=== PATIENT | female | born 1945 | race Caucasian/White ===

== ENCOUNTER → 2016-08-25 | Outpatient (CLI) | payer OTHER ==
[~2016-08-25] MED LIST: 'TENORMIN50 MG PO; AMLODIPINE5 MG PO; ANTIVERT/2525 MG PO; CIPRO500 MG PO; CLINDAMYCIN HC300 MG PO; LEVAQUIN750 M1 PO; LEVAQUIN750 MG PO; LEVOFLOXACIN500 MG PO; LISINOPRIL40 MG PO; PRILOSEC20 MG PO; PYRIDIUM200 MG PO; VICODIN ES 7501 TAB PO; VITAMIN B121000 MC1 PO; ZYRTEC10 MG PO
== END | disposition home or self-care (01) ==
LOC: CT 15:00
DX: R91.1 Solitary pulmonary nodule (principal)

== ENCOUNTER 2016-11-12 18:13 | Emergency (ER) | payer OTHER ==
[~2016-11-12] VITALS: Ht 172.7 cm; Wt 90.7 kg
[~2016-11-12 18:13] MED LIST changes: -CLINDAMYCIN HC300 MG PO; -LEVAQUIN750 M1 PO; -VITAMIN B121000 MC1 PO
[2016-11-12] MEDS ORDERED: VITAMIN B121000 MC1 PO (18:26)
[2016-11-12] MEDS ORDERED: CLINDAMYCIN HC300 MG PO (18:53)
[2016-11-12] MEDS ORDERED: LEVAQUIN750 M1 PO (18:53)
[2016-11-12 19:02] VITALS: BP 148/78
== END 2016-11-12 19:42 | disposition home or self-care (01) ==
LOC: ED 18:13
DX: S91.351A Open bite, right foot, initial encounter (principal); Z88.0 Allergy status to penicillin; Z88.1 Allergy status to other antibiotic agents; Z88.2 Allergy status to sulfonamides; Z90.49 Acquired absence of other specified parts of digestive tract; W55.01XA Bitten by cat, initial encounter; Y93.89 Activity, other specified; Y92.9 Unspecified place or not applicable; Y99.9 Unspecified external cause status

== ENCOUNTER 2016-12-07 01:15 | Emergency (ER) | payer OTHER ==
[~2016-12-07] VITALS: Ht 172.7 cm; Wt 93.0 kg
[~2016-12-07 01:15] MED LIST changes: +CLINDAMYCIN HC300 MG PO; +LEVAQUIN750 M1 PO; +VITAMIN B121000 MC1 PO
[2016-12-07 01:24] VITALS: BP 179/84
[2016-12-07] MEDS ORDERED: CLINDAMYCIN HC300 MG PO (02:23)
== END 2016-12-07 03:17 | disposition home or self-care (01) ==
LOC: ED 01:15
DX: S91.352D Open bite, left foot, subsequent encounter (principal); Z88.0 Allergy status to penicillin; Z88.1 Allergy status to other antibiotic agents; Z88.2 Allergy status to sulfonamides; Z79.899 Other long term (current) drug therapy; W55.01XD Bitten by cat, subsequent encounter

== ENCOUNTER → 2017-02-03 | Outpatient (CLI) | payer OTHER | END | disposition home or self-care (01) | LOC: RESCLI 02:53 | DX: W55.01XD Bitten by cat, subsequent encounter (principal); I12.9 Hypertensive chronic kidney disease with stage 1 through stage 4 chronic kidney disease, or unspecified chronic kidney disease; N18.3 Chronic kidney disease, stage 3 (moderate); K21.9 Gastro-esophageal reflux disease without esophagitis; E78.5 Hyperlipidemia, unspecified; Z88.0 Allergy status to penicillin; Z88.2 Allergy status to sulfonamides; Z88.1 Allergy status to other antibiotic agents; X58.XXXD Exposure to other specified factors, subsequent encounter ==

== ENCOUNTER → 2017-02-09 | Outpatient (CLI) | payer OTHER | END | disposition home or self-care (01) | LOC: CARD 12:56 | DX: R60.9 Edema, unspecified (principal) ==

== ENCOUNTER 2017-03-15 19:44 | Emergency (ER) | payer OTHER ==
[~2017-03-15] VITALS: Ht 172.7 cm; Wt 93.0 kg
[~2017-03-15 19:44] MED LIST changes: +NORVASC10 MG PO; +VITAMIN D400 I1 PO
[2017-03-15 20:05] VITALS: BP 169/80
[2017-03-15 20:45] LABS: BILIRUBIN NEGATIVE (NEGATIVE); BLOOD 3+ (NEGATIVE); CLARITY CLOUDY (CLEAR); COLOR YELLOW (YELLOW); GLUCOSE NEGATIVE (NEGATIVE); KETONE NEGATIVE (NEGATIVE); LEUKO ESTERASE 3+ (NEGATIVE); NITRITE NEGATIVE (NEGATIVE); PH 5.5 (5.0-9.0); PROTEIN 2+ (NEGATIVE); UROBILINOGEN 0.2 E.U./dl (0.2-1.0)
[2017-03-15 20:51] LABS: BACTERIA 3+; EPITHELIAL CELLS 0-2; RBC TNTC rbc/hpf (0-2); WBC TNTC wbc/hpf (0-5)
[2017-03-15 20:52] LABS: URINE REFLEX COMMENT YES (NO)
[2017-03-15] MEDS ORDERED: AMINOPHYLLIN200 MG PO (20:57)
== END 2017-03-15 21:09 | disposition home or self-care (01) ==
LOC: ED 19:44
PROVIDERS: Nurse Practitioner Family
DX: N30.01 Acute cystitis with hematuria (principal); R50.9 Fever, unspecified; Z88.0 Allergy status to penicillin; Z88.1 Allergy status to other antibiotic agents; Z88.2 Allergy status to sulfonamides; Z88.8 Allergy status to other drugs, medicaments and biological substances; Z79.899 Other long term (current) drug therapy

== ENCOUNTER → 2017-03-23 | Outpatient (CLI) | payer OTHER ==
[~2017-03-23] MED LIST changes: +AMINOPHYLLIN200 MG PO
[2017-03-23 12:35] LABS: BASO % 0.4 % (0.0-1.0); EOS # 0.1 10*3/uL (0.0-0.4); EOS % 2.7 % (1.0-4.0); HEMATOCRIT 41.3 % (37.0-47.0); HEMOGLOBIN 13.8 g/dl (12.0-16.0); LYMPH # 1.6 10*3/uL (1.3-4.4); LYMPH % 30.4 % (27.0-41.0); MEAN CORPUSCULAR HGB 30.4 pg (27.0-31.0); MEAN CORPUSCULAR HGB CONC 33.4 g/dl (33.0-37.0); MONO # 0.3 10*3/uL (0.1-1.0); MONO % 6.6 % (3.0-9.0); NEUT % 59.3 % (47.0-73.0); PLATELET COUNT AUTOMATED 191 10*3/uL (130-400); RED BLOOD COUNT 4.54 10*6/uL (4.10-5.10); RED CELL DISTRI WIDTH 12.8 % (0-14.5); WHITE BLOOD COUNT 5.1 10*3/uL (4.8-10.8)
[2017-03-23 12:40] LABS: BILIRUBIN NEGATIVE (NEGATIVE); BLOOD NEGATIVE (NEGATIVE); CLARITY SL CLOUDY (CLEAR); COLOR YELLOW (YELLOW); GLUCOSE NEGATIVE (NEGATIVE); KETONE NEGATIVE (NEGATIVE); LEUKO ESTERASE NEGATIVE (NEGATIVE); NITRITE NEGATIVE (NEGATIVE); PH 5.5 (5.0-9.0); PROTEIN NEGATIVE (NEGATIVE); SPECIFIC GRAVITY 1.025 (1.005-1.030); UROBILINOGEN 0.2 E.U./dl (0.2-1.0)
[2017-03-23 12:58] LABS: BACTERIA TRACE; URINE REFLEX COMMENT NO (NO)
[2017-03-23 13:04] LABS: POTASSIUM 4.3 mmol/L (3.5-5.1)
== END | disposition home or self-care (01) ==
LOC: LAB 07:57 → RESCLI 07:57
PROVIDERS: Internal Medicine
DX: N18.3 Chronic kidney disease, stage 3 (moderate) (principal); N39.0 Urinary tract infection, site not specified; E53.8 Deficiency of other specified B group vitamins

== ENCOUNTER → 2017-04-06 | Outpatient (CLI) | payer OTHER | END | disposition home or self-care (01) | LOC: RESCLI 04-01 11:27 | DX: I12.9 Hypertensive chronic kidney disease with stage 1 through stage 4 chronic kidney disease, or unspecified chronic kidney disease (principal); N18.3 Chronic kidney disease, stage 3 (moderate); E55.9 Vitamin D deficiency, unspecified; K21.9 Gastro-esophageal reflux disease without esophagitis; E53.8 Deficiency of other specified B group vitamins; E78.2 Mixed hyperlipidemia; G62.9 Polyneuropathy, unspecified; R06.09 Other forms of dyspnea; Z91.19 Patient's noncompliance with other medical treatment and regimen ==

== ENCOUNTER 2017-04-25 18:27 | Emergency (ER) | payer OTHER ==
[~2017-04-25] VITALS: Ht 172.7 cm; Wt 93.0 kg
[2017-04-25 18:33] VITALS: BP 180/60
[2017-04-25 18:55] LABS: BASO % 0.2 % (0.0-1.0); EOS # 0.1 10*3/uL (0.0-0.4); EOS % 2.2 % (1.0-4.0); HEMATOCRIT 40.5 % (37.0-47.0); HEMOGLOBIN 13.7 g/dl (12.0-16.0); LYMPH # 1.6 10*3/uL (1.3-4.4); MEAN CELL VOLUME 90.2 fl (81.0-99.0); MEAN CORPUSCULAR HGB 30.5 pg (27.0-31.0); MEAN CORPUSCULAR HGB CONC 33.8 g/dl (33.0-37.0); MONO # 0.3 10*3/uL (0.1-1.0); MONO % 5.2 % (3.0-9.0); NEUT % 66.1 % (47.0-73.0); PLATELET COUNT AUTOMATED 177 10*3/uL (130-400); RED BLOOD COUNT 4.49 10*6/uL (4.10-5.10); RED CELL DISTRI WIDTH 12.9 % (0-14.5)
[2017-04-25 19:03] LABS: ACT PARTIAL THROMBO TIME 24.1 SECONDS (20.8-31.5)
[2017-04-25 19:12] LABS: BUN 11 mg/dl (7-24); CHLORIDE 108 mmol/L (98-107); CREATININE 1.47 mg/dL (0.55-1.02); POTASSIUM 3.7 mmol/L (3.5-5.1); SODIUM 142 mmol/L (136-145)
[2017-04-25 19:22] LABS: TROPONIN I < 0.015 ng/ml (<0.045)
== END 2017-04-25 21:25 | disposition home or self-care (01) ==
LOC: ED 18:27
PROVIDERS: Emergency Medicine
DX: R53.81 Other malaise (principal); R53.83 Other fatigue; R07.89 Other chest pain; R60.0 Localized edema; E55.9 Vitamin D deficiency, unspecified; E53.8 Deficiency of other specified B group vitamins; I12.9 Hypertensive chronic kidney disease with stage 1 through stage 4 chronic kidney disease, or unspecified chronic kidney disease; N18.3 Chronic kidney disease, stage 3 (moderate); Z88.0 Allergy status to penicillin; Z88.2 Allergy status to sulfonamides; Z88.1 Allergy status to other antibiotic agents; Z88.8 Allergy status to other drugs, medicaments and biological substances; Z79.899 Other long term (current) drug therapy

== ENCOUNTER → 2017-05-11 | Outpatient (CLI) | payer OTHER | END | disposition home or self-care (01) | LOC: RESCLI 02:03 | DX: I12.9 Hypertensive chronic kidney disease with stage 1 through stage 4 chronic kidney disease, or unspecified chronic kidney disease (principal); N18.3 Chronic kidney disease, stage 3 (moderate); K21.9 Gastro-esophageal reflux disease without esophagitis; E55.9 Vitamin D deficiency, unspecified ==

== ENCOUNTER → 2017-06-08 | Outpatient (CLI) | payer OTHER | END | disposition home or self-care (01) | LOC: RESCLI 02:56 | DX: Z12.31 Encounter for screening mammogram for malignant neoplasm of breast (principal); Z12.11 Encounter for screening for malignant neoplasm of colon; Z13.820 Encounter for screening for osteoporosis; E53.8 Deficiency of other specified B group vitamins; E55.9 Vitamin D deficiency, unspecified; I10 Essential (primary) hypertension; K21.9 Gastro-esophageal reflux disease without esophagitis; G62.9 Polyneuropathy, unspecified; R00.1 Bradycardia, unspecified; E66.9 Obesity, unspecified; Z90.49 Acquired absence of other specified parts of digestive tract ==

== ENCOUNTER → 2017-06-29 | Outpatient (CLI) | payer OTHER | END | disposition home or self-care (01) | LOC: MAMMO 01:17 | DX: Z12.31 Encounter for screening mammogram for malignant neoplasm of breast (principal) ==

== ENCOUNTER → 2017-07-06 | Outpatient (CLI) | payer OTHER ==
[~2017-07-06] MED LIST changes: +NEURONTIN100 MG PO; +OMEPRAZOLE40 MG PO; -PRILOSEC20 MG PO; +VITAMIN D35000 UNIT PO
== END | disposition home or self-care (01) ==
LOC: RESCLI 03:09
DX: E55.9 Vitamin D deficiency, unspecified (principal); I10 Essential (primary) hypertension; K21.9 Gastro-esophageal reflux disease without esophagitis; G62.9 Polyneuropathy, unspecified; I48.91 Unspecified atrial fibrillation; J44.9 Chronic obstructive pulmonary disease, unspecified

== ENCOUNTER 2017-07-09 02:07 | Inpatient (IN) | payer OTHER ==
[2017-07-09] VITALS (7 sets, daily range): BP systolic 135–186; BP diastolic 57–84
[~2017-07-09] VITALS: Ht 172.7 cm; Wt 98.0 kg
--- NOTE | ~2017-07-09 | PROC NOTE ---
[place], [place] PROCEDURE NOTE NAME: JAEL KISER [facility] #: [id number] UNIT #: [id number] ROOM: DOCTOR: LAN SCOTT MD BIRTHDATE: [birth year] DOS: 07/09/2017 PREOPERATIVE DIAGNOSIS: Screening examination. POSTOPERATIVE DIAGNOSIS: Sigmoid diverticulosis. PROCEDURE: Flexible sigmoidoscopy. ENDOSCOPIST: Lan Scott MD BROADCAST PRODUCER: LEON. ANESTHESIA: MAC. INDICATIONS: This is a 72-year-old lady who comes in today for a screening examination. She has never had a colonoscopy before. The procedure and its complications were explained to the patient in detail preoperatively. Complications that were discussed included but were not limited to bleeding, missed lesions and colon perforation. She agreed to proceed. DESCRIPTION OF PROCEDURE: After identifying the patient, the patient was brought to the endoscopy suite and placed in the left lateral position. After time-out procedure was called, IV sedation was administered and a digital rectal exam was performed. This was within normal limits. An adult colonoscope was now introduced into the anal canal and advanced sequentially into the rectum and the sigmoid colon. Upon reaching the sigmoid colon, there was found to be extensive diverticulosis. Approximately 25 cm from the anal verge, the scope could not be passed because of significant amount of resistance. There was also mild amount of bleeding that could be observed due to the trauma of the scope. At this point, because of the inability to proceed beyond the level of 25 cm in a safe fashion, the scope was withdrawn and the patient was brought back to the recovery room in stable fashion. As a precaution an upright chest x-ray was ordered in order to rule out any perforation. Based on these findings, the patient is recommended to have further workup, which may include barium enema or another colonoscopy in the future. I have discussed these findings with the patient's daughter in the recovery room. Lan Scott MD CM:PROCNOTE:PROCEDURE NOTE [id number] LAN SCOTT MD
[~2017-07-09 02:07] MED LIST changes: -NEURONTIN100 MG PO; -VITAMIN D35000 UNIT PO
[2017-07-09 10:56] LABS: BASO % 0.3 % (0.0-1.0); EOS # 0.1 10*3/uL (0.0-0.4); EOS % 2.2 % (1.0-4.0); HEMATOCRIT 39.6 % (37.0-47.0); HEMOGLOBIN 13.2 g/dl (12.0-16.0); LYMPH # 1.3 10*3/uL (1.3-4.4); LYMPH % 36.1 % (27.0-41.0); MEAN CORPUSCULAR HGB CONC 33.3 g/dl (33.0-37.0); MEAN PLATELET VOLUME 9.6 fl (9.6-12.3); MONO # 0.3 10*3/uL (0.1-1.0); MONO % 6.9 % (3.0-9.0); NEUT % 54.2 % (47.0-73.0); PLATELET COUNT AUTOMATED 170 10*3/uL (130-400); WHITE BLOOD COUNT 3.6 10*3/uL (4.8-10.8)
[2017-07-09 11:12] LABS: ALBUMIN 3.6 gm/dl (3.1-4.5); CREATININE 1.34 mg/dL (0.55-1.02); POTASSIUM 4.2 mmol/L (3.5-5.1); TOTAL PROTEIN 6.6 gm/dL (6.4-8.2)
[2017-07-09] MEDS ORDERED: VITAMIN D35000 UNIT PO (16:39)
[2017-07-09] MEDS ORDERED: NEURONTIN100 MG PO (16:39)
[2017-07-10] VITALS: BP 139/55
== END 2017-07-10 02:00 | disposition short-term general hospital (02) | DRG 392 ==
LOC: SDC 02:07 → 5E 10:51 → SDC 12:30 → 5E 07-10 02:00
PROVIDERS: ADMIT Surgery
PROC: 0DJD8ZZ Inspection of Lower Intestinal Tract, Via Natural or Artificial Opening Endoscopic (ICD-10-PCS; principal; 2017-07-09)
DX: K57.30 Diverticulosis of large intestine without perforation or abscess without bleeding (principal); N18.3 Chronic kidney disease, stage 3 (moderate); I12.9 Hypertensive chronic kidney disease with stage 1 through stage 4 chronic kidney disease, or unspecified chronic kidney disease; K91.61 Intraoperative hemorrhage and hematoma of a digestive system organ or structure complicating a digestive system procedure; Z87.440 Personal history of urinary (tract) infections; Z88.0 Allergy status to penicillin; Z88.2 Allergy status to sulfonamides; Z88.8 Allergy status to other drugs, medicaments and biological substances; Y92.234 Operating room of hospital as the place of occurrence of the external cause; Y83.8 Other surgical procedures as the cause of abnormal reaction of the patient, or of later complication, without mention of misadventure at the time of the procedure; Z79.899 Other long term (current) drug therapy

== ENCOUNTER → 2017-07-27 | Outpatient (CLI) | payer OTHER ==
[~2017-07-27] MED LIST changes: +NEURONTIN100 MG PO; +VITAMIN D35000 UNIT PO
[2017-07-27 15:38] LABS: BASO # 0.1 10*3/uL (0.0-0.1); EOS # 0.5 10*3/uL (0.0-0.4); EOS % 8.1 % (1.0-4.0); HEMOGLOBIN 13.6 g/dl (12.0-16.0); LYMPH # 1.6 10*3/uL (1.3-4.4); LYMPH % 26.2 % (27.0-41.0); MEAN CELL VOLUME 91.9 fl (81.0-99.0); MEAN CORPUSCULAR HGB 29.8 pg (27.0-31.0); MEAN CORPUSCULAR HGB CONC 32.4 g/dl (33.0-37.0); MEAN PLATELET VOLUME 9.1 fl (9.6-12.3); MONO # 0.5 10*3/uL (0.1-1.0); MONO % 8.1 % (3.0-9.0); NEUT # 3.4 10*3/uL (2.3-7.9); NEUT % 55.6 % (47.0-73.0); PLATELET COUNT AUTOMATED 411 10*3/uL (130-400); RED BLOOD COUNT 4.57 10*6/uL (4.10-5.10); RED CELL DISTRI WIDTH 13.6 % (0-14.5)
[2017-07-27 15:49] LABS: CREATININE 1.19 mg/dL (0.55-1.02); POTASSIUM 4.3 mmol/L (3.5-5.1)
== END ==
LOC: RESCLI 03:54
PROVIDERS: Internal Medicine
DX: Z00.01 Encounter for general adult medical examination with abnormal findings (principal); K63.1 Perforation of intestine (nontraumatic); Z88.8 Allergy status to other drugs, medicaments and biological substances; I10 Essential (primary) hypertension; K21.9 Gastro-esophageal reflux disease without esophagitis; E78.5 Hyperlipidemia, unspecified

== ENCOUNTER → 2017-08-24 | Outpatient (CLI) | payer OTHER ==
[2017-08-24 11:19] LABS: HEMATOCRIT 40.1 % (37.0-47.0); HEMOGLOBIN 13.2 g/dl (12.0-16.0); MEAN CELL VOLUME 90.9 fl (81.0-99.0); MEAN CORPUSCULAR HGB 29.9 pg (27.0-31.0); MEAN CORPUSCULAR HGB CONC 32.9 g/dl (33.0-37.0); MEAN PLATELET VOLUME 9.3 fl (9.6-12.3); RED BLOOD COUNT 4.41 10*6/uL (4.10-5.10); RED CELL DISTRI WIDTH 13.8 % (0-14.5); WHITE BLOOD COUNT 4.7 10*3/uL (4.8-10.8)
[2017-08-24 11:32] LABS: CREATININE 1.17 mg/dL (0.55-1.02); POTASSIUM 3.9 mmol/L (3.5-5.1)
[2017-08-24 13:16] LABS: VITAMIN D, 25-HYDROXY 64.3 ng/mL (30-100)
== END | disposition home or self-care (01) ==
LOC: LAB 03:34 → RESCLI 03:34
PROVIDERS: Internal Medicine
DX: N18.3 Chronic kidney disease, stage 3 (moderate) (principal); K63.1 Perforation of intestine (nontraumatic); E55.9 Vitamin D deficiency, unspecified

== ENCOUNTER → 2017-09-02 | Outpatient (CLI) | payer OTHER ==
[2017-09-02 11:18] LABS: BASO % 0.2 % (0.0-1.0); EOS # 0.1 10*3/uL (0.0-0.4); EOS % 2.7 % (1.0-4.0); HEMATOCRIT 38.9 % (37.0-47.0); HEMOGLOBIN 12.9 g/dl (12.0-16.0); LYMPH # 1.5 10*3/uL (1.3-4.4); LYMPH % 37.2 % (27.0-41.0); MEAN CELL VOLUME 90.5 fl (81.0-99.0); MEAN CORPUSCULAR HGB CONC 33.2 g/dl (33.0-37.0); MEAN PLATELET VOLUME 9.1 fl (9.6-12.3); MONO # 0.4 10*3/uL (0.1-1.0); MONO % 8.7 % (3.0-9.0); NEUT # 2.1 10*3/uL (2.3-7.9); PLATELET COUNT AUTOMATED 230 10*3/uL (130-400); RED CELL DISTRI WIDTH 13.8 % (0-14.5)
[2017-09-02 11:25] LABS: BILIRUBIN 1+ (NEGATIVE); BLOOD NEGATIVE (NEGATIVE); CLARITY CLEAR (CLEAR); COLOR YELLOW (YELLOW); GLUCOSE NEGATIVE (NEGATIVE); KETONE TRACE (NEGATIVE); LEUKO ESTERASE NEGATIVE (NEGATIVE); NITRITE NEGATIVE (NEGATIVE); UROBILINOGEN 0.2 E.U./dl (0.2-1.0)
[2017-09-02 11:46] LABS: ALBUMIN 3.6 gm/dl (3.1-4.5); POTASSIUM 3.7 mmol/L (3.5-5.1)
[2017-09-02 11:47] LABS: CREATININE 1.14 mg/dL (0.55-1.02); PHOSPHOROUS 2.9 mg/dL (2.5-4.9)
[2017-09-02 12:26] LABS: PTH INTACT 49.3 pg/mL (14.0-72.0); VITAMIN D, 25-HYDROXY 58.9 ng/mL (30-100)
== END ==
LOC: LAB 10:51
PROVIDERS: Internal Medicine Nephrology
DX: N18.3 Chronic kidney disease, stage 3 (moderate) (principal); E55.9 Vitamin D deficiency, unspecified; N25.81 Secondary hyperparathyroidism of renal origin

== ENCOUNTER → 2017-10-06 | Outpatient (CLI) | payer OTHER | END | disposition home or self-care (01) | LOC: RESCLI 00:48 | DX: I12.9 Hypertensive chronic kidney disease with stage 1 through stage 4 chronic kidney disease, or unspecified chronic kidney disease (principal); E78.2 Mixed hyperlipidemia; N18.3 Chronic kidney disease, stage 3 (moderate); E55.9 Vitamin D deficiency, unspecified; E53.8 Deficiency of other specified B group vitamins; G62.9 Polyneuropathy, unspecified; E66.9 Obesity, unspecified; K63.1 Perforation of intestine (nontraumatic); K21.9 Gastro-esophageal reflux disease without esophagitis ==

== ENCOUNTER → 2017-10-11 | Outpatient (CLI) | payer OTHER | END | disposition home or self-care (01) | LOC: CT 01:13 | DX: K57.30 Diverticulosis of large intestine without perforation or abscess without bleeding (principal); R91.1 Solitary pulmonary nodule; Z90.49 Acquired absence of other specified parts of digestive tract ==

== ENCOUNTER → 2017-10-21 | Outpatient (CLI) | payer OTHER | END | disposition home or self-care (01) | LOC: D 14:38 | DX: K52.9 Noninfective gastroenteritis and colitis, unspecified (principal) ==

== ENCOUNTER → 2017-10-25 | Outpatient (CLI) | payer OTHER | END | disposition home or self-care (01) | LOC: RESCLI 02:12 | DX: I12.9 Hypertensive chronic kidney disease with stage 1 through stage 4 chronic kidney disease, or unspecified chronic kidney disease (principal); N18.3 Chronic kidney disease, stage 3 (moderate); E78.2 Mixed hyperlipidemia; E55.9 Vitamin D deficiency, unspecified; R91.1 Solitary pulmonary nodule; E53.8 Deficiency of other specified B group vitamins; G62.9 Polyneuropathy, unspecified; E66.9 Obesity, unspecified; K21.9 Gastro-esophageal reflux disease without esophagitis ==

== ENCOUNTER → 2017-11-23 | Outpatient (CLI) | payer OTHER ==
[2017-11-23 15:34] LABS: CREATININE 1.29 mg/dL (0.55-1.02); POTASSIUM 4.3 mmol/L (3.5-5.1)
[2017-11-23 15:40] LABS: THYROID STIM HORMONE (HS) 0.523 uIU/ml (0.358-4.75)
== END | disposition home or self-care (01) ==
LOC: RESCLI 00:26
PROVIDERS: Internal Medicine
DX: I12.9 Hypertensive chronic kidney disease with stage 1 through stage 4 chronic kidney disease, or unspecified chronic kidney disease (principal); N18.3 Chronic kidney disease, stage 3 (moderate); E53.8 Deficiency of other specified B group vitamins; E66.9 Obesity, unspecified; E55.9 Vitamin D deficiency, unspecified; Z88.0 Allergy status to penicillin

== ENCOUNTER → 2018-01-11 | Outpatient (CLI) | payer OTHER | END | disposition home or self-care (01) | LOC: RESCLI 01:39 | DX: H92.01 Otalgia, right ear (principal); I10 Essential (primary) hypertension; K21.9 Gastro-esophageal reflux disease without esophagitis; E78.5 Hyperlipidemia, unspecified; Z88.0 Allergy status to penicillin; Z88.8 Allergy status to other drugs, medicaments and biological substances; Z79.899 Other long term (current) drug therapy ==

== ENCOUNTER → 2018-02-22 | Outpatient (CLI) | payer OTHER | END | disposition home or self-care (01) | LOC: RESCLI 03:17 | DX: I12.9 Hypertensive chronic kidney disease with stage 1 through stage 4 chronic kidney disease, or unspecified chronic kidney disease (principal); N18.3 Chronic kidney disease, stage 3 (moderate); E55.9 Vitamin D deficiency, unspecified; K21.9 Gastro-esophageal reflux disease without esophagitis; E53.8 Deficiency of other specified B group vitamins; G60.9 Hereditary and idiopathic neuropathy, unspecified; R00.1 Bradycardia, unspecified; Z79.899 Other long term (current) drug therapy; Z88.0 Allergy status to penicillin; Z88.8 Allergy status to other drugs, medicaments and biological substances ==

== ENCOUNTER → 2018-05-18 | Outpatient (CLI) | payer OTHER ==
[~2018-05-18] MED LIST changes: +CEFDINIR300 MG PO; +FLAGYL500 MG PO; +MERREM IV1 GM IV
[2018-05-18 11:45] LABS: BASO % 0.4 % (0.0-1.0); EOS # 0.2 10*3/uL (0.0-0.4); EOS % 3.4 % (1.0-4.0); HEMATOCRIT 41.2 % (37.0-47.0); HEMOGLOBIN 13.4 g/dl (12.0-16.0); LYMPH # 1.6 10*3/uL (1.3-4.4); LYMPH % 30.9 % (27.0-41.0); MEAN CELL VOLUME 91.6 fl (81.0-99.0); MEAN CORPUSCULAR HGB 29.8 pg (27.0-31.0); MEAN CORPUSCULAR HGB CONC 32.5 g/dl (33.0-37.0); MONO # 0.3 10*3/uL (0.1-1.0); MONO % 6.4 % (3.0-9.0); NEUT # 3.1 10*3/uL (2.3-7.9); NEUT % 58.5 % (47.0-73.0); PLATELET COUNT AUTOMATED 204 10*3/uL (130-400); RED CELL DISTRI WIDTH 13.2 % (0-14.5); WHITE BLOOD COUNT 5.3 10*3/uL (4.8-10.8)
[2018-05-18 12:16] LABS: ALBUMIN 3.8 gm/dl (3.1-4.5); CREATININE 1.29 mg/dL (0.55-1.02); POTASSIUM 4.6 mmol/L (3.5-5.1); TOTAL PROTEIN 7.5 gm/dL (6.4-8.2)
[2018-05-18 13:54] LABS: VITAMIN D, 25-HYDROXY 71.2 ng/mL (30-100)
== END | disposition home or self-care (01) ==
LOC: LAB 11:21
PROVIDERS: Internal Medicine
DX: N18.3 Chronic kidney disease, stage 3 (moderate) (principal); Z79.899 Other long term (current) drug therapy

== ENCOUNTER → 2018-06-07 | Outpatient (CLI) | payer OTHER ==
[2018-06-07 11:48] LABS: BILIRUBIN NEGATIVE (NEGATIVE); BLOOD NEGATIVE (NEGATIVE); CLARITY SL CLOUDY (CLEAR); COLOR YELLOW (YELLOW); GLUCOSE NEGATIVE (NEGATIVE); KETONE NEGATIVE (NEGATIVE)
[2018-06-07 11:49] LABS: BACTERIA 1+; EPITHELIAL CELLS 15-20; LEUKO ESTERASE TRACE (NEGATIVE); NITRITE NEGATIVE (NEGATIVE); UROBILINOGEN 0.2 E.U./dl (0.2-1.0)
== END | disposition home or self-care (01) ==
LOC: RESCLI 00:52
PROVIDERS: Student in an Organized Health Care Education/Training Program
DX: I12.9 Hypertensive chronic kidney disease with stage 1 through stage 4 chronic kidney disease, or unspecified chronic kidney disease (principal); N18.3 Chronic kidney disease, stage 3 (moderate); R30.0 Dysuria; E55.9 Vitamin D deficiency, unspecified; K21.9 Gastro-esophageal reflux disease without esophagitis; E53.8 Deficiency of other specified B group vitamins; G60.9 Hereditary and idiopathic neuropathy, unspecified; R00.1 Bradycardia, unspecified; Z79.899 Other long term (current) drug therapy

== ENCOUNTER 2018-07-16 16:39 | Inpatient (IN) | payer OTHER ==
[~2018-07-16] VITALS: Ht 170.2 cm; Wt 86.8 kg
[~2018-07-16 16:39] MED LIST changes: -CEFDINIR300 MG PO; -FLAGYL500 MG PO; -MERREM IV1 GM IV
[2018-07-16 16:40] VITALS: BP 151/64
[2018-07-16 17:11] LABS: BASO % 0.1 % (0.0-1.0); EOS # 0.1 10*3/uL (0.0-0.4); EOS % 1.2 % (1.0-4.0); HEMATOCRIT 39.1 % (37.0-47.0); HEMOGLOBIN 12.9 g/dl (12.0-16.0); LYMPH % 25.3 % (27.0-41.0); MEAN CELL VOLUME 89.9 fl (81.0-99.0); MEAN CORPUSCULAR HGB 29.7 pg (27.0-31.0); MEAN PLATELET VOLUME 9.7 fl (9.6-12.3); MONO # 0.6 10*3/uL (0.1-1.0); MONO % 7.4 % (3.0-9.0); NEUT # 5.1 10*3/uL (2.3-7.9); NEUT % 65.7 % (47.0-73.0); PLATELET COUNT AUTOMATED 253 10*3/uL (130-400); RED BLOOD COUNT 4.35 10*6/uL (4.10-5.10); RED CELL DISTRI WIDTH 13.2 % (0-14.5); WHITE BLOOD COUNT 7.7 10*3/uL (4.8-10.8)
[2018-07-16 17:20] LABS: BILIRUBIN NEGATIVE (NEGATIVE); BLOOD NEGATIVE (NEGATIVE); CLARITY SL CLOUDY (CLEAR); COLOR YELLOW (YELLOW); GLUCOSE NEGATIVE (NEGATIVE); KETONE NEGATIVE (NEGATIVE); LEUKO ESTERASE 1+ (NEGATIVE); NITRITE NEGATIVE (NEGATIVE); SPECIFIC GRAVITY 1.015 (1.005-1.030); UROBILINOGEN 0.2 E.U./dl (0.2-1.0)
[2018-07-16 17:20] LABS: ACT PARTIAL THROMBO TIME 24.3 SECONDS (20.8-31.5); INTERNATIONAL NORM RATIO 0.9 (2.0-3.5)
[2018-07-16 17:29] LABS: ALBUMIN 3.5 gm/dl (3.1-4.5); CREATININE 1.16 mg/dL (0.55-1.02); POTASSIUM 3.8 mmol/L (3.5-5.1); TOTAL PROTEIN 7.9 gm/dL (6.4-8.2)
[2018-07-16 17:42] LABS: WBC 16-20 wbc/hpf (0-5)
[2018-07-16 17:43] LABS: MUCOUS TRACE
[2018-07-16 18:26] VITALS: BP 170/90
[2018-07-16 19:20] VITALS: BP 166/78
[2018-07-17] VITALS: BP 125/49
[2018-07-17 06:23] LABS: BASO % 0.2 % (0.0-1.0); EOS # 0.1 10*3/uL (0.0-0.4); EOS % 2.2 % (1.0-4.0); HEMATOCRIT 34.8 % (37.0-47.0); HEMOGLOBIN 11.2 g/dl (12.0-16.0); LYMPH # 1.5 10*3/uL (1.3-4.4); LYMPH % 26.9 % (27.0-41.0); MEAN CELL VOLUME 90.4 fl (81.0-99.0); MEAN CORPUSCULAR HGB 29.1 pg (27.0-31.0); MEAN CORPUSCULAR HGB CONC 32.2 g/dl (33.0-37.0); MEAN PLATELET VOLUME 10.1 fl (9.6-12.3); MONO # 0.4 10*3/uL (0.1-1.0); MONO % 7.8 % (3.0-9.0); NEUT # 3.4 10*3/uL (2.3-7.9); NEUT % 62.7 % (47.0-73.0); PLATELET COUNT AUTOMATED 202 10*3/uL (130-400); RED BLOOD COUNT 3.85 10*6/uL (4.10-5.10); WHITE BLOOD COUNT 5.4 10*3/uL (4.8-10.8)
[2018-07-17 06:53] LABS: BUN 12 mg/dl (7-24); CHLORIDE 105 mmol/L (98-107); CREATININE 1.04 mg/dL (0.55-1.02); PHOSPHOROUS 3.5 mg/dL (2.5-4.9); POTASSIUM 3.8 mmol/L (3.5-5.1); SODIUM 140 mmol/L (136-145)
[2018-07-17 08:00] VITALS: BP 149/51
[2018-07-17 09:50] LABS: VITAMIN D, 25-HYDROXY 78.5 ng/mL (30-100)
[2018-07-17 12:00] VITALS: BP 148/58
[2018-07-17 16:00] VITALS: BP 132/61
[2018-07-17 20:00] VITALS: BP 132/53
[2018-07-18] VITALS: BP 136/55
[2018-07-18 06:49] LABS: BASO % 0.2 % (0.0-1.0); EOS # 0.1 10*3/uL (0.0-0.4); EOS % 3.4 % (1.0-4.0); HEMATOCRIT 36.3 % (37.0-47.0); HEMOGLOBIN 11.9 g/dl (12.0-16.0); LYMPH # 1.5 10*3/uL (1.3-4.4); LYMPH % 36.6 % (27.0-41.0); MEAN CELL VOLUME 89.6 fl (81.0-99.0); MEAN CORPUSCULAR HGB 29.4 pg (27.0-31.0); MEAN CORPUSCULAR HGB CONC 32.8 g/dl (33.0-37.0); MEAN PLATELET VOLUME 9.8 fl (9.6-12.3); MONO # 0.3 10*3/uL (0.1-1.0); NEUT # 2.1 10*3/uL (2.3-7.9); NEUT % 51.6 % (47.0-73.0); PLATELET COUNT AUTOMATED 226 10*3/uL (130-400); RED BLOOD COUNT 4.05 10*6/uL (4.10-5.10); RED CELL DISTRI WIDTH 12.8 % (0-14.5); WHITE BLOOD COUNT 4.1 10*3/uL (4.8-10.8)
[2018-07-18 07:24] LABS: BUN 12 mg/dl (7-24); CHLORIDE 107 mmol/L (98-107); CREATININE 0.98 mg/dL (0.55-1.02); SODIUM 143 mmol/L (136-145)
[2018-07-18 07:55] VITALS: BP 128/88
[2018-07-18 12:30] VITALS: BP 151/56
[2018-07-18 16:00] VITALS: BP 140/59
[2018-07-18 20:00] VITALS: BP 155/73
[2018-07-19] VITALS (9 sets, daily range): BP systolic 108–150; BP diastolic 46–83
[2018-07-20] VITALS: BP 113/51
[2018-07-20 06:34] LABS: BASO % 0.2 % (0.0-1.0); EOS # 0.2 10*3/uL (0.0-0.4); EOS % 3.5 % (1.0-4.0); HEMATOCRIT 36.5 % (37.0-47.0); HEMOGLOBIN 11.8 g/dl (12.0-16.0); LYMPH # 1.6 10*3/uL (1.3-4.4); LYMPH % 27.4 % (27.0-41.0); MEAN CELL VOLUME 89.9 fl (81.0-99.0); MEAN CORPUSCULAR HGB 29.1 pg (27.0-31.0); MEAN CORPUSCULAR HGB CONC 32.3 g/dl (33.0-37.0); MEAN PLATELET VOLUME 9.4 fl (9.6-12.3); MONO # 0.5 10*3/uL (0.1-1.0); MONO % 7.6 % (3.0-9.0); NEUT # 3.6 10*3/uL (2.3-7.9); NEUT % 60.8 % (47.0-73.0); PLATELET COUNT AUTOMATED 261 10*3/uL (130-400); RED BLOOD COUNT 4.06 10*6/uL (4.10-5.10); RED CELL DISTRI WIDTH 13.1 % (0-14.5); WHITE BLOOD COUNT 5.9 10*3/uL (4.8-10.8)
[2018-07-20 06:52] LABS: BUN 15 mg/dl (7-24); CHLORIDE 105 mmol/L (98-107); CREATININE 0.96 mg/dL (0.55-1.02); POTASSIUM 3.9 mmol/L (3.5-5.1); SODIUM 139 mmol/L (136-145)
[2018-07-20 08:00] VITALS: BP 113/49
[2018-07-20 12:00] VITALS: BP 121/65
[2018-07-20 16:00] VITALS: BP 118/52
[2018-07-20 20:00] VITALS: BP 119/52
[2018-07-21] VITALS: BP 140/63
[2018-07-21 07:06] LABS: ALKALINE PHOSPHATASE 72 U/L (45-117); BUN 14 mg/dl (7-24); CHLORIDE 104 mmol/L (98-107); POTASSIUM 3.8 mmol/L (3.5-5.1); SGOT/AST 11 IU/L (3-35); SGPT/ALT 14 U/L (12-78); SODIUM 141 mmol/L (136-145); TOTAL PROTEIN 6.6 gm/dL (6.4-8.2)
[2018-07-21 08:00] VITALS: BP 114/46
[2018-07-21 12:00] VITALS: BP 145/58
[2018-07-21] MEDS ORDERED: CEFDINIR300 MG PO (12:05)
[2018-07-21] MEDS ORDERED: FLAGYL500 MG PO (12:05)
== END 2018-07-21 14:50 | disposition home or self-care (01) | DRG 356 ==
LOC: ED 16:39 → 4E 18:35 → EDHOLD 18:35 → 4E 18:46
PROVIDERS: Emergency Medicine; Internal Medicine; Student in an Organized Health Care Education/Training Program
PROC: 0W9F0ZZ Drainage of Abdominal Wall, Open Approach (ICD-10-PCS; principal; 2018-07-19)
DX: K56.600 Partial intestinal obstruction, unspecified as to cause (principal); K65.1 Peritoneal abscess; N32.2 Vesical fistula, not elsewhere classified; Z68.30 Body mass index [BMI] 30.0-30.9, adult; N18.3 Chronic kidney disease, stage 3 (moderate); I12.9 Hypertensive chronic kidney disease with stage 1 through stage 4 chronic kidney disease, or unspecified chronic kidney disease; E55.9 Vitamin D deficiency, unspecified; E53.8 Deficiency of other specified B group vitamins; E78.2 Mixed hyperlipidemia; R73.9 Hyperglycemia, unspecified; K21.9 Gastro-esophageal reflux disease without esophagitis; K38.9 Disease of appendix, unspecified; K57.30 Diverticulosis of large intestine without perforation or abscess without bleeding; E66.09 Other obesity due to excess calories; G62.9 Polyneuropathy, unspecified; Z90.49 Acquired absence of other specified parts of digestive tract; Z98.51 Tubal ligation status; Z88.0 Allergy status to penicillin; Z88.1 Allergy status to other antibiotic agents; Z88.2 Allergy status to sulfonamides; Z88.8 Allergy status to other drugs, medicaments and biological substances; Z87.440 Personal history of urinary (tract) infections; Z87.81 Personal history of (healed) traumatic fracture; Z87.891 Personal history of nicotine dependence; Z82.49 Family history of ischemic heart disease and other diseases of the circulatory system; Z83.3 Family history of diabetes mellitus; Z79.899 Other long term (current) drug therapy; Q64.4 Malformation of urachus

== ENCOUNTER → 2018-07-26 | Outpatient (CLI) | payer OTHER ==
[~2018-07-26] MED LIST changes: +CEFDINIR300 MG PO; +FLAGYL500 MG PO; +MERREM IV1 GM IV
== END | disposition home or self-care (01) ==
LOC: WOUNDCARE 04:28
DX: S31.609D Unspecified open wound of abdominal wall, unspecified quadrant with penetration into peritoneal cavity, subsequent encounter (principal); K91.71 Accidental puncture and laceration of a digestive system organ or structure during a digestive system procedure; I12.9 Hypertensive chronic kidney disease with stage 1 through stage 4 chronic kidney disease, or unspecified chronic kidney disease; N18.9 Chronic kidney disease, unspecified; E55.9 Vitamin D deficiency, unspecified; E78.5 Hyperlipidemia, unspecified; E53.8 Deficiency of other specified B group vitamins; K21.9 Gastro-esophageal reflux disease without esophagitis; G62.9 Polyneuropathy, unspecified; E66.9 Obesity, unspecified; Z68.29 Body mass index [BMI] 29.0-29.9, adult; Z87.891 Personal history of nicotine dependence; Z90.49 Acquired absence of other specified parts of digestive tract; Z87.19 Personal history of other diseases of the digestive system; X58.XXXD Exposure to other specified factors, subsequent encounter

== ENCOUNTER 2018-07-27 22:17 | Inpatient (IN) | payer OTHER ==
[~2018-07-27] VITALS: Ht 172.7 cm; Wt 86.7 kg
--- NOTE | ~2018-07-27 | CON ---
[place], [place] REPORT OF CONSULTATION [id number] UN[facility] #: [id number] ROOM: 528 DOCTOR: LAURA BRICE MD BIRTHDATE: [birth year] DOS: 07/28/2018 REASON FOR CONSULTATION: Abdominal pain, sepsis. CHIEF COMPLAINT: Generalized weakness, abdominal pain, fever. HISTORY OF PRESENTING ILLNESS: This is a 73-year-old female recently seen by me because of her abdominal pain, nausea, vomiting secondary to her intra-abdominal abscess, status post I and D. The patient has a history of perforated colon that led to intra-abdominal abscess, which was managed conservatively and then almost an year later, she presented with similar complaints and at this time, I and D was performed by Dr. Lakhani and the patient was initially kept on IV antibiotics and she recovered very quickly, remained stable and was discharged on p.o. cefdinir plus metronidazole. The patient refused to take ciprofloxacin because she read that it causes a lot of side effects. The patient did take the antibiotics for a week; however, a day prior to the presentation, she was feeling overall weak and tired with abdominal pain, fever, chills and got readmitted. On admission, her T-max was 101, slightly tachycardic. Her WBC count was 11.5. Lactic acid was normal. Liver enzymes were normal. C-reactive protein was 2.98. CT abdomen and pelvis done this time shows abdominal wall gas, status post I and D, but no other fluid collection concerning for abscess or drainable abscess. At this time, the patient has been started on vancomycin and meropenem. She is clinically okay and still feels tired. PAST MEDICAL HISTORY: Significant for intra-abdominal abscess, chronic kidney disease, colonic perforation, GERD, hypertension, hyperlipidemia. PAST SURGICAL HISTORY: Cholecystectomy, left knee surgery, tubal ligation, I and D. SOCIAL HISTORY: Former smoker, nonalcoholic. No illicit drug use. FAMILY HISTORY: Noncontributory at this time. ALLERGIES: To PENICILLIN, SULFA DRUGS, PYRIDIUM, TETRACYCLINE. REVIEW OF SYSTEMS: A 12-point review of systems has been done. Pertinent negative and positive has been included in HPI, rest are noncontributory. PHYSICAL EXAMINATION: VITAL SIGNS: Temperature 97.4, pulse rate 65, respiratory rate 20, oxygen saturation 99% on room air. GENERAL: The patient is alert, oriented x 3, in mild distress. HEENT: Atraumatic, normocephalic. PERRLA, EOMI. RESPIRATORY: Air entry bilaterally equal. No wheeze or crackles. CARDIOVASCULAR: S1, S2 normal. No murmur, rubs or gallops. ABDOMEN: Soft, nontender, nondistended. Bowel sounds present in 4 quadrants. Incision site over the lower abdomen has minimal serous fluid drainage, minimal redness, no tenderness. No foul smell. EXTREMITIES: No pedal edema. [place], [place] REPORT OF CONSULTATION NAME: JAEL KISER UNIT #: [id number] ROOM: 528 DOCTOR: LAURA BRICE MD BIRTHDATE: [birth year] NEUROLOGIC: Cranial nerves 2-12 grossly intact. LABORATORY DATA AND IMAGING: Reviewed, mentioned in HPI. ASSESSMENT: 1. Intraabdominal abscess, status post I and D done a week ago. 2. Colonic perforation in the past. 3. Sepsis from above. PLAN: At this time, the patient is hemodynamically stable, although she did present with features of sepsis and symptomatic and partly the reason could be. She is not tolerating the oral antibiotics well. Her incision site looks good and the wound is healing as well. CT abdomen is not remarkable. At this time, I spoke with the patient and discussed that may be giving her IV antibiotics for 2 weeks would be helpful. I would suggest to get a midline and give her cefepime plus metronidazole for 2 weeks, can discontinue vancomycin and metronidazole. She has been reported PENICILLIN allergy, but she tolerated the cephalosporins in the past. Thank you for your consult. Please call for any questions. Laura Brice MD CM:CONSTR:REPORT OF CONSULTATION 4 07/28/18 1505 interface
--- NOTE | ~2018-07-27 | EKG ---
[place], [place] ELECTROCARDIOGRAM REPORT NAME: JAEL KISER UNIT #: [id number] ROOM: DOCTOR: EPIPHANY DRAFT REPORT BIRTHDATE: [birth year] [facility] Test Date: 2018-07-27 Test Time: 23:10:30 Pat Name: JAEL KISER Department: Room: Gender: F Pomology Teacher: : 1945 Requested By: MED STEVENSON PA-C Order Number: [id number] Reading MD: Measurements Intervals [place] Rate: 74 P: 54 CA: 156 QRS: 21 QRSD: 92 T: 28 QT: 388 QTc: 431 Interpretive Statements Sinus rhythm No previous ECG available for comparison CM:EKGRPT:ELECTROCARDIOGRAM REPORT 09 12 MED STEVENSON PA-C EPIPHANY DRAFT REPORT MED STEVENSON PA-C
[~2018-07-27 22:17] MED LIST changes: -MERREM IV1 GM IV
[2018-07-27 22:20] VITALS: BP 150/70
[2018-07-27 23:29] LABS: BASO % 0.1 % (0.0-1.0); EOS # 0.1 10*3/uL (0.0-0.4); EOS % 0.4 % (1.0-4.0); HEMATOCRIT 38.9 % (37.0-47.0); HEMOGLOBIN 12.8 g/dl (12.0-16.0); LYMPH # 0.9 10*3/uL (1.3-4.4); LYMPH % 7.9 % (27.0-41.0); MEAN CORPUSCULAR HGB 29.3 pg (27.0-31.0); MEAN CORPUSCULAR HGB CONC 32.9 g/dl (33.0-37.0); MEAN PLATELET VOLUME 9.9 fl (9.6-12.3); MONO # 0.8 10*3/uL (0.1-1.0); MONO % 6.7 % (3.0-9.0); NEUT # 9.7 10*3/uL (2.3-7.9); NEUT % 84.6 % (47.0-73.0); PLATELET COUNT AUTOMATED 219 10*3/uL (130-400); RED BLOOD COUNT 4.37 10*6/uL (4.10-5.10); RED CELL DISTRI WIDTH 13.2 % (0-14.5); WHITE BLOOD COUNT 11.5 10*3/uL (4.8-10.8)
[2018-07-27 23:39] LABS: ACT PARTIAL THROMBO TIME 24.7 SECONDS (20.8-31.5); INTERNATIONAL NORM RATIO 1.1 (2.0-3.5)
[2018-07-27 23:45] LABS: ALBUMIN 3.2 gm/dl (3.1-4.5); ALKALINE PHOSPHATASE 71 U/L (45-117); BUN 12 mg/dl (7-24); CHLORIDE 104 mmol/L (98-107); CREATININE 1.27 mg/dL (0.55-1.02); LIPASE 105 U/L (73-393); POTASSIUM 3.7 mmol/L (3.5-5.1); SGOT/AST 16 IU/L (3-35); SGPT/ALT 16 U/L (12-78); SODIUM 139 mmol/L (136-145); TOTAL PROTEIN 7.1 gm/dL (6.4-8.2)
[2018-07-27 23:46] LABS: TROPONIN I < 0.015 ng/ml (<0.045)
[2018-07-28 00:27] VITALS: BP 110/43
[2018-07-28 02:10] VITALS: BP 100/58
[2018-07-28 06:21] LABS: EOS % 0.1 % (1.0-4.0); HEMATOCRIT 36.1 % (37.0-47.0); HEMOGLOBIN 11.5 g/dl (12.0-16.0); LYMPH # 1.3 10*3/uL (1.3-4.4); LYMPH % 16.7 % (27.0-41.0); MEAN CELL VOLUME 91.4 fl (81.0-99.0); MEAN CORPUSCULAR HGB 29.1 pg (27.0-31.0); MEAN CORPUSCULAR HGB CONC 31.9 g/dl (33.0-37.0); MEAN PLATELET VOLUME 9.9 fl (9.6-12.3); MONO # 0.5 10*3/uL (0.1-1.0); MONO % 6.1 % (3.0-9.0); NEUT # 5.9 10*3/uL (2.3-7.9); NEUT % 76.7 % (47.0-73.0); PLATELET COUNT AUTOMATED 201 10*3/uL (130-400); RED BLOOD COUNT 3.95 10*6/uL (4.10-5.10); RED CELL DISTRI WIDTH 13.2 % (0-14.5); WHITE BLOOD COUNT 7.7 10*3/uL (4.8-10.8)
[2018-07-28 06:36] LABS: ALBUMIN 2.9 gm/dl (3.1-4.5); ALKALINE PHOSPHATASE 59 U/L (45-117); BUN 10 mg/dl (7-24); CHLORIDE 110 mmol/L (98-107); CREATININE 1.07 mg/dL (0.55-1.02); PHOSPHOROUS 3.2 mg/dL (2.5-4.9); POTASSIUM 3.7 mmol/L (3.5-5.1); SGOT/AST 10 IU/L (3-35); SGPT/ALT 14 U/L (12-78); SODIUM 144 mmol/L (136-145); TOTAL PROTEIN 6.4 gm/dL (6.4-8.2)
[2018-07-28 08:00] VITALS: BP 128/64
[2018-07-28 08:14] LABS: BILIRUBIN NEGATIVE (NEGATIVE); BLOOD TRACE-LYSED (NEGATIVE); CLARITY SL CLOUDY (CLEAR); COLOR YELLOW (YELLOW); GLUCOSE NEGATIVE (NEGATIVE); KETONE NEGATIVE (NEGATIVE); LEUKO ESTERASE NEGATIVE (NEGATIVE); NITRITE NEGATIVE (NEGATIVE); PH 5.5 (5.0-9.0); UROBILINOGEN 0.2 E.U./dl (0.2-1.0)
[2018-07-28 08:27] LABS: BACTERIA TRACE; MUCOUS 2+; WBC 0-2 wbc/hpf (0-5)
[2018-07-28 12:00] VITALS: BP 123/38
[2018-07-28 16:00] VITALS: BP 121/45
[2018-07-28 20:00] VITALS: BP 125/54
[2018-07-29] VITALS: BP 123/45
[2018-07-29 06:11] LABS: BASO % 0.3 % (0.0-1.0); EOS # 0.1 10*3/uL (0.0-0.4); EOS % 1.3 % (1.0-4.0); HEMATOCRIT 33.5 % (37.0-47.0); HEMOGLOBIN 11.1 g/dl (12.0-16.0); LYMPH # 1.1 10*3/uL (1.3-4.4); LYMPH % 17.9 % (27.0-41.0); MEAN CELL VOLUME 88.9 fl (81.0-99.0); MEAN CORPUSCULAR HGB 29.4 pg (27.0-31.0); MEAN CORPUSCULAR HGB CONC 33.1 g/dl (33.0-37.0); MEAN PLATELET VOLUME 9.9 fl (9.6-12.3); MONO # 0.5 10*3/uL (0.1-1.0); MONO % 7.8 % (3.0-9.0); NEUT # 4.6 10*3/uL (2.3-7.9); NEUT % 72.4 % (47.0-73.0); PLATELET COUNT AUTOMATED 176 10*3/uL (130-400); RED BLOOD COUNT 3.77 10*6/uL (4.10-5.10); RED CELL DISTRI WIDTH 13.2 % (0-14.5); WHITE BLOOD COUNT 6.3 10*3/uL (4.8-10.8)
[2018-07-29 06:35] LABS: CREATININE 1.09 mg/dL (0.55-1.02); POTASSIUM 3.7 mmol/L (3.5-5.1)
[2018-07-29] MEDS ORDERED: MERREM IV1 GM IV (11:03)
[2018-07-29] MEDS ORDERED: FLAGYL500 MG PO (11:03)
[2018-07-29 12:00] VITALS: BP 141/37
[2018-07-29 16:00] VITALS: BP 125/78
[2018-07-29 20:00] VITALS: BP 126/62
[2018-07-30] VITALS: BP 114/46
[2018-07-30 08:00] VITALS: BP 118/68
== END 2018-07-30 08:28 | disposition home or self-care (01) | DRG 862 ==
LOC: ED 22:17 → EDHOLD 07-28 01:22 → 5E 07-28 01:22
PROVIDERS: Internal Medicine; Physician Assistant; Student in an Organized Health Care Education/Training Program
DX: T81.49XA Infection following a procedure, other surgical site, initial encounter (principal); A41.9 Sepsis, unspecified organism; I13.0 Hypertensive heart and chronic kidney disease with heart failure and stage 1 through stage 4 chronic kidney disease, or unspecified chronic kidney disease; I50.32 Chronic diastolic (congestive) heart failure; E44.0 Moderate protein-calorie malnutrition; N18.3 Chronic kidney disease, stage 3 (moderate); E55.9 Vitamin D deficiency, unspecified; E53.8 Deficiency of other specified B group vitamins; G62.9 Polyneuropathy, unspecified; E66.3 Overweight; R73.03 Prediabetes; R73.9 Hyperglycemia, unspecified; Y83.8 Other surgical procedures as the cause of abnormal reaction of the patient, or of later complication, without mention of misadventure at the time of the procedure; K57.90 Diverticulosis of intestine, part unspecified, without perforation or abscess without bleeding; K21.9 Gastro-esophageal reflux disease without esophagitis; E78.5 Hyperlipidemia, unspecified; E86.0 Dehydration; Z88.0 Allergy status to penicillin; Z88.2 Allergy status to sulfonamides; Z88.8 Allergy status to other drugs, medicaments and biological substances; Z79.899 Other long term (current) drug therapy; Z90.49 Acquired absence of other specified parts of digestive tract; Z98.51 Tubal ligation status; Z83.3 Family history of diabetes mellitus; Z82.49 Family history of ischemic heart disease and other diseases of the circulatory system; Q64.4 Malformation of urachus; Y92.89 Other specified places as the place of occurrence of the external cause; Z68.29 Body mass index [BMI] 29.0-29.9, adult

== ENCOUNTER → 2018-08-02 | Outpatient (CLI) | payer OTHER ==
[~2018-08-02] MED LIST changes: +MERREM IV1 GM IV
== END | disposition home or self-care (01) ==
LOC: WOUNDCARE 03:12
DX: S31.609D Unspecified open wound of abdominal wall, unspecified quadrant with penetration into peritoneal cavity, subsequent encounter (principal); K91.71 Accidental puncture and laceration of a digestive system organ or structure during a digestive system procedure; I12.9 Hypertensive chronic kidney disease with stage 1 through stage 4 chronic kidney disease, or unspecified chronic kidney disease; N18.9 Chronic kidney disease, unspecified; K21.9 Gastro-esophageal reflux disease without esophagitis; E55.9 Vitamin D deficiency, unspecified; E53.8 Deficiency of other specified B group vitamins; G62.9 Polyneuropathy, unspecified; E66.9 Obesity, unspecified; Z68.29 Body mass index [BMI] 29.0-29.9, adult; Z87.891 Personal history of nicotine dependence; X58.XXXD Exposure to other specified factors, subsequent encounter

== ENCOUNTER → 2018-08-09 | Outpatient (CLI) | payer OTHER | END | disposition home or self-care (01) | LOC: WOUNDCARE 04:57 | DX: L02.211 Cutaneous abscess of abdominal wall (principal); K91.71 Accidental puncture and laceration of a digestive system organ or structure during a digestive system procedure; I12.9 Hypertensive chronic kidney disease with stage 1 through stage 4 chronic kidney disease, or unspecified chronic kidney disease; N18.9 Chronic kidney disease, unspecified; E78.5 Hyperlipidemia, unspecified; E55.9 Vitamin D deficiency, unspecified; G62.9 Polyneuropathy, unspecified; K21.9 Gastro-esophageal reflux disease without esophagitis; E66.9 Obesity, unspecified; Z68.29 Body mass index [BMI] 29.0-29.9, adult; Z87.891 Personal history of nicotine dependence ==

== ENCOUNTER → 2018-08-18 | Outpatient (CLI) | payer OTHER ==
[~2018-08-18] MED LIST changes: +AMLODIPINE BESYL5 MG PO; +ATENOLOL50 M1 PO; +K-TAB20 MEQ PO; +LACTINEX 0.2 MG1 TAB PO; +OMNICEF300 MG PO; +POLY-VITAMIN1 EACH PO; +Percocet 325 MG1 TAB PO; +TENORMIN50 MG PO; +VANCOCIN125 M1 PO; +VANCOMYCIN250 MG/2.5 PO; +ZOFRAN 4 MG ED2 TAB PO
== END | disposition home or self-care (01) ==
DX: L03.311 Cellulitis of abdominal wall (principal); I12.9 Hypertensive chronic kidney disease with stage 1 through stage 4 chronic kidney disease, or unspecified chronic kidney disease; N18.9 Chronic kidney disease, unspecified; K21.9 Gastro-esophageal reflux disease without esophagitis; E55.9 Vitamin D deficiency, unspecified; E53.8 Deficiency of other specified B group vitamins; E78.5 Hyperlipidemia, unspecified; G62.9 Polyneuropathy, unspecified; E66.9 Obesity, unspecified; Z68.29 Body mass index [BMI] 29.0-29.9, adult; Z87.891 Personal history of nicotine dependence

== ENCOUNTER → 2018-08-24 | Outpatient (CLI) | payer OTHER ==
[2018-08-24 14:43] LABS: BILIRUBIN NEGATIVE (NEGATIVE); BLOOD 3+ (NEGATIVE); CLARITY SL CLOUDY (CLEAR); COLOR YELLOW (YELLOW); GLUCOSE NEGATIVE (NEGATIVE); KETONE NEGATIVE (NEGATIVE); LEUKO ESTERASE 2+ (NEGATIVE); NITRITE NEGATIVE (NEGATIVE); PH 5.5 (5.0-9.0); UROBILINOGEN 0.2 E.U./dl (0.2-1.0)
[2018-08-24 15:09] LABS: RBC TNTC rbc/hpf (0-2); WBC TNTC wbc/hpf (0-5)
[2018-08-24 15:59] LABS: BASO % 0.2 % (0.0-1.0); EOS # 0.2 10*3/uL (0.0-0.4); EOS % 1.9 % (1.0-4.0); HEMATOCRIT 42.3 % (37.0-47.0); HEMOGLOBIN 13.6 g/dl (12.0-16.0); LYMPH # 1.7 10*3/uL (1.3-4.4); MEAN CELL VOLUME 89.8 fl (81.0-99.0); MEAN CORPUSCULAR HGB 28.9 pg (27.0-31.0); MEAN CORPUSCULAR HGB CONC 32.2 g/dl (33.0-37.0); MEAN PLATELET VOLUME 9.7 fl (9.6-12.3); MONO # 0.4 10*3/uL (0.1-1.0); MONO % 5.1 % (3.0-9.0); NEUT # 6.1 10*3/uL (2.3-7.9); NEUT % 72.3 % (47.0-73.0); PLATELET COUNT AUTOMATED 251 10*3/uL (130-400); RED BLOOD COUNT 4.71 10*6/uL (4.10-5.10); RED CELL DISTRI WIDTH 13.4 % (0-14.5); WHITE BLOOD COUNT 8.4 10*3/uL (4.8-10.8)
[2018-08-24 16:12] LABS: URINE CREATININE RANDOM 23.7 mg/dL
[2018-08-24 16:26] LABS: ALBUMIN 3.6 gm/dl (3.1-4.5); CREATININE 1.09 mg/dL (0.55-1.02); PHOSPHOROUS 3.2 mg/dL (2.5-4.9); POTASSIUM 4.3 mmol/L (3.5-5.1)
[2018-08-24 18:59] LABS: PTH INTACT 44.3 pg/mL (18.5-88.0); VITAMIN D, 25-HYDROXY 69.3 ng/mL (30-100)
== END | disposition home or self-care (01) ==
PROVIDERS: Internal Medicine Nephrology; Student in an Organized Health Care Education/Training Program
DX: K21.9 Gastro-esophageal reflux disease without esophagitis (principal); N30.01 Acute cystitis with hematuria; E78.5 Hyperlipidemia, unspecified; Z79.899 Other long term (current) drug therapy; Z90.49 Acquired absence of other specified parts of digestive tract; Z88.2 Allergy status to sulfonamides; Z88.0 Allergy status to penicillin; Z88.8 Allergy status to other drugs, medicaments and biological substances

== ENCOUNTER → 2018-08-25 | Outpatient (CLI) | payer OTHER ==
[~2018-08-25] MED LIST changes: -K-TAB20 MEQ PO; -LACTINEX 0.2 MG1 TAB PO; -OMNICEF300 MG PO; -POLY-VITAMIN1 EACH PO; -TENORMIN50 MG PO; -VANCOCIN125 M1 PO; -VANCOMYCIN250 MG/2.5 PO; -ZOFRAN 4 MG ED2 TAB PO
== END | disposition home or self-care (01) ==
LOC: WOUNDCARE 03:00
DX: K91.71 Accidental puncture and laceration of a digestive system organ or structure during a digestive system procedure (principal); L02.211 Cutaneous abscess of abdominal wall; I12.9 Hypertensive chronic kidney disease with stage 1 through stage 4 chronic kidney disease, or unspecified chronic kidney disease; N18.9 Chronic kidney disease, unspecified; E55.9 Vitamin D deficiency, unspecified; E78.5 Hyperlipidemia, unspecified; K21.9 Gastro-esophageal reflux disease without esophagitis; G62.9 Polyneuropathy, unspecified; E66.9 Obesity, unspecified; Z87.891 Personal history of nicotine dependence

== ENCOUNTER 2018-09-02 18:53 | Emergency (ER) | payer OTHER ==
[~2018-09-02] VITALS: Ht 172.7 cm; Wt 89.8 kg
[~2018-09-02 18:53] MED LIST changes: -AMLODIPINE BESYL5 MG PO; -ATENOLOL50 M1 PO; -Percocet 325 MG1 TAB PO
[2018-09-02 19:10] VITALS: BP 167/70
[2018-09-02 19:54] LABS: BASO % 0.2 % (0.0-1.0); EOS # 0.1 10*3/uL (0.0-0.4); EOS % 1.5 % (1.0-4.0); HEMATOCRIT 39.3 % (37.0-47.0); HEMOGLOBIN 12.9 g/dl (12.0-16.0); LYMPH # 1.4 10*3/uL (1.3-4.4); LYMPH % 20.8 % (27.0-41.0); MEAN CELL VOLUME 90.1 fl (81.0-99.0); MEAN CORPUSCULAR HGB 29.6 pg (27.0-31.0); MEAN CORPUSCULAR HGB CONC 32.8 g/dl (33.0-37.0); MEAN PLATELET VOLUME 10.3 fl (9.6-12.3); MONO # 0.5 10*3/uL (0.1-1.0); MONO % 6.8 % (3.0-9.0); NEUT # 4.7 10*3/uL (2.3-7.9); NEUT % 70.4 % (47.0-73.0); PLATELET COUNT AUTOMATED 225 10*3/uL (130-400); RED BLOOD COUNT 4.36 10*6/uL (4.10-5.10); RED CELL DISTRI WIDTH 13.6 % (0-14.5); WHITE BLOOD COUNT 6.6 10*3/uL (4.8-10.8)
[2018-09-02 20:09] LABS: ALBUMIN 3.4 gm/dl (3.1-4.5); ALKALINE PHOSPHATASE 90 U/L (45-117); BUN 15 mg/dl (7-24); CHLORIDE 103 mmol/L (98-107); CREATININE 1.15 mg/dL (0.55-1.02); SGOT/AST 18 IU/L (3-35); SGPT/ALT 20 U/L (12-78); SODIUM 137 mmol/L (136-145); TOTAL PROTEIN 7.6 gm/dL (6.4-8.2)
[2018-09-02 20:11] LABS: TROPONIN I < 0.015 ng/ml (<0.045)
[2018-11-06] MEDS ORDERED: K-TAB20 MEQ PO (04:17)
== END 2018-09-02 22:20 | disposition home or self-care (01) ==
LOC: ED 18:53
PROVIDERS: Nurse Practitioner Family
DX: S31.109A Unspecified open wound of abdominal wall, unspecified quadrant without penetration into peritoneal cavity, initial encounter (principal); K21.9 Gastro-esophageal reflux disease without esophagitis; E78.5 Hyperlipidemia, unspecified; I12.9 Hypertensive chronic kidney disease with stage 1 through stage 4 chronic kidney disease, or unspecified chronic kidney disease; N18.3 Chronic kidney disease, stage 3 (moderate); E66.9 Obesity, unspecified; Z88.0 Allergy status to penicillin; Z88.2 Allergy status to sulfonamides; Z88.8 Allergy status to other drugs, medicaments and biological substances; Z88.1 Allergy status to other antibiotic agents; Z79.899 Other long term (current) drug therapy; Z87.891 Personal history of nicotine dependence; X58.XXXA Exposure to other specified factors, initial encounter; Y93.89 Activity, other specified; Y92.89 Other specified places as the place of occurrence of the external cause; Y99.8 Other external cause status

== ENCOUNTER → 2018-09-06 | Outpatient (CLI) | payer OTHER ==
[~2018-09-06] MED LIST changes: +AMLODIPINE BESYL5 MG PO; +ATENOLOL50 M1 PO; +K-TAB20 MEQ PO; +Percocet 325 MG1 TAB PO; +VANCOCIN125 M1 PO; +VANCOMYCIN250 MG/2.5 PO
== END | disposition home or self-care (01) ==
LOC: WOUNDCARE 02:22
DX: K91.71 Accidental puncture and laceration of a digestive system organ or structure during a digestive system procedure (principal); L02.211 Cutaneous abscess of abdominal wall; I12.9 Hypertensive chronic kidney disease with stage 1 through stage 4 chronic kidney disease, or unspecified chronic kidney disease; N18.9 Chronic kidney disease, unspecified; G62.9 Polyneuropathy, unspecified; K21.9 Gastro-esophageal reflux disease without esophagitis; E78.5 Hyperlipidemia, unspecified; E55.9 Vitamin D deficiency, unspecified; E66.9 Obesity, unspecified; Z87.891 Personal history of nicotine dependence; Z68.29 Body mass index [BMI] 29.0-29.9, adult

== ENCOUNTER 2018-09-18 14:55 | Inpatient (IN) | payer OTHER ==
[2018-09-18] VITALS (7 sets, daily range): BP systolic 100–157; BP diastolic 48–59
[~2018-09-18] VITALS: Ht 172.7 cm; Wt 90.7 kg
--- NOTE | ~2018-09-18 | EKG ---
[place], [place] ELECTROCARDIOGRAM REPORT NAME: JAEL KISER UNIT #: [id number] ROOM: 410 DOCTOR: EPIPHANY DRAFT REPORT BIRTHDATE: [birth year] [facility] Test Date: 2018-09-18 Test Time: 19:11:37 Pat Name: JAEL KISER Department: Room: 410 1 Gender: F Surveillance Sensor Operator: Clementina Vazquez : 1945 Requested By: MARCIN GIORDANO DNP Order Number: [id number] Reading MD: Segundo Dixon MD Measurements Intervals [place] Rate: 58 P: 61 RI: 167 QRS: 20 QRSD: 87 T: 14 QT: 397 QTc: 390 Interpretive Statements Sinus rhythm Baseline wander in lead(s) II,III,aVF No change from earlier ECG this date Electronically Signed On 09-19-2018 21:33:10 PST by Segundo Dixon MD CM:EKGRPT:ELECTROCARDIOGRAM REPORT 10 32 MARCIN GIORDANO DNP EPIPHANY DRAFT REPORT MARCIN GIORDANO DNP
--- NOTE | ~2018-09-18 | EKG ---
[place], [place] ELECTROCARDIOGRAM REPORT NAME: JAEL KISER UNIT #: [id number] ROOM: 410 DOCTOR: MURALI DRAFT REPORT BIRTHDATE: [birth year] [facility] Test Date: 2018-09-18 Test Time: 16:21:24 Pat Name: JAEL KISER Department: Room: 410 Gender: F Physical Therapy Attendant: : 1945 Requested By: MARCIN GIORDANO DNP Order Number: [id number] Reading MD: Segundo Dixon MD Measurements Intervals [place] Rate: 54 P: 72 VT: 76 QRS: 34 QRSD: 95 T: 20 QT: 418 QTc: 397 Interpretive Statements Sinus rhythm Low voltage, precordial leads Baseline wander in lead(s) I Compared to ECG 07/27/2018 23:10:30 Low QRS voltage now present Electronically Signed On 09-19-2018 21:27:58 PST by Segundo Dixon MD CM:EKGRPT:ELECTROCARDIOGRAM REPORT 1621 26 MARCIN GIORDANO DNP EPIPHANY DRAFT REPORT MARCIN GIORDANO DNP
--- NOTE | ~2018-09-18 | EKG ---
[place], [place] ELECTROCARDIOGRAM REPORT NAME: JAEL KISER UNIT #: [id number] ROOM: 410 DOCTOR: MURALI DRAFT REPORT BIRTHDATE: [birth year] [facility] Test Date: 2018-09-18 Test Time: 22:55:53 Pat Name: JAEL KISER Department: Room: 410 1 Gender: F Lock Operator: : 1945 Requested By: MARCIN GIORDANO DNP Order Number: [id number] Reading MD: Segundo Dixon MD Measurements Intervals [place] Rate: 63 P: 74 GA: 172 QRS: 49 QRSD: 91 T: 39 QT: 389 QTc: 399 Interpretive Statements Sinus rhythm No change from earlier ECG this date Electronically Signed On 09-19-2018 4:26:28 PST by Segundo Dixon MD CM:EKGRPT:ELECTROCARDIOGRAM REPORT 2255 0426 MARCIN GIORDANO DNP EPIPHANY DRAFT REPORT MARCIN GIORDANO DNP
[~2018-09-18 14:55] MED LIST changes: -AMLODIPINE BESYL5 MG PO; -ATENOLOL50 M1 PO; -K-TAB20 MEQ PO; -Percocet 325 MG1 TAB PO; -VANCOCIN125 M1 PO; -VANCOMYCIN250 MG/2.5 PO
--- NOTE | 2018-09-18 15:24 | NUR ---
SIDE RAIL ARE UP. PULSE OX ON THE PATIENT
[2018-09-18 15:25] LABS: BASO % 0.2 % (0.0-1.0); EOS # 0.1 10*3/uL (0.0-0.4); EOS % 1.6 % (1.0-4.0); HEMATOCRIT 41.2 % (37.0-47.0); HEMOGLOBIN 13.5 g/dl (12.0-16.0); LYMPH # 1.1 10*3/uL (1.3-4.4); LYMPH % 17.7 % (27.0-41.0); MEAN CELL VOLUME 89.4 fl (81.0-99.0); MEAN CORPUSCULAR HGB 29.3 pg (27.0-31.0); MEAN CORPUSCULAR HGB CONC 32.8 g/dl (33.0-37.0); MEAN PLATELET VOLUME 9.5 fl (9.6-12.3); MONO # 0.4 10*3/uL (0.1-1.0); MONO % 6.2 % (3.0-9.0); NEUT # 4.8 10*3/uL (2.3-7.9); PLATELET COUNT AUTOMATED 223 10*3/uL (130-400); RED BLOOD COUNT 4.61 10*6/uL (4.10-5.10); RED CELL DISTRI WIDTH 13.8 % (0-14.5); WHITE BLOOD COUNT 6.4 10*3/uL (4.8-10.8)
--- NOTE | 2018-09-18 15:30 | NUR ---
PATIENT AWARE OF NEEDING URINE SPECIMEN. URINE CUP PROVIDED. PATIENT WILL CALL FOR ASSISTANCE WHEN SHE HAS TO GO
[2018-09-18 15:35] LABS: ACT PARTIAL THROMBO TIME 23.3 SECONDS (20.8-31.5); INTERNATIONAL NORM RATIO 0.9 (2.0-3.5)
[2018-09-18 15:40] LABS: ALBUMIN 3.6 gm/dl (3.1-4.5); CREATININE 1.25 mg/dL (0.55-1.02); POTASSIUM 4.3 mmol/L (3.5-5.1); TOTAL PROTEIN 7.8 gm/dL (6.4-8.2)
--- NOTE | 2018-09-18 15:40 | NUR ---
DRESSING WAS REMOVED AND NEW DRY DRESSING OF 4X4 AND ABDOMINAL PAD APPLIED WITH PAPER TAPE
--- NOTE | 2018-09-18 15:50 | NUR ---
PATIENT REPORTS SHE IS PAIN FREE AFTER MEDICATION ADMINISTRATION
--- NOTE | 2018-09-18 16:19 | NUR ---
PATIENT WAS ON LIGHT WHEN ENTERING ROOM PATIENT STATES"I HAVE CHEST PAIN" RATES PAIN 7 OUT OF 10. DESCRIBES A PRESURRE ACHY SENSTAION. DENIES ANY SOB OR DIAPHROESIS. JESÚS WAS DRINKING ORAL CONTRAST WHEN DEVELOPED CT. REPORTS SHE HAS BEEN HAVING TROUBLE WITH GAS LATELY. EKG WAS DONE. STONE POLISHER NOTIFIED. PATIENT PLACED ON MONITOR
--- NOTE | 2018-09-18 16:35 | NUR ---
BED RECIEVED. PATIENT IS UNABLE TO BE ADMITTED UNTIL CT SCAN COMES BACK. CALLED FLOOR TO MAKE NURSE AWARE ON FLOOR
--- NOTE | 2018-09-18 20:25 | NUR ---
Time: 2024 A 73 year old FEMALE admitted to 4E under services of MINERVA TUCKER DO. Pt. arrived via stretcher from ER. Chief complaint: CHRONIC ABD WOUND, RENAL INSUFFIENCY. SHANAE MORROW
[2018-09-18 20:27] LABS: BILIRUBIN NEGATIVE (NEGATIVE); BLOOD NEGATIVE (NEGATIVE); CLARITY CLEAR (CLEAR); COLOR YELLOW (YELLOW); GLUCOSE NEGATIVE (NEGATIVE); KETONE NEGATIVE (NEGATIVE); LEUKO ESTERASE 1+ (NEGATIVE); NITRITE NEGATIVE (NEGATIVE); SPECIFIC GRAVITY <= 1.005 (1.005-1.030); UROBILINOGEN 0.2 E.U./dl (0.2-1.0)
--- NOTE | 2018-09-18 20:50 | NUR ---
ED RN MARIANA OSBORNE STATES DR SEBASTIAN AND NICK AWARE OF PT CONSULT. RN ALSO STATES THAT PIC OF WOUND WERE TAKEN IN ED.
[2018-09-18 20:56] LABS: RBC 0-2 rbc/hpf (0-2)
[2018-09-18] MEDS ORDERED: AMLODIPINE BESYL5 MG PO (21:33)
[2018-09-18] MEDS ORDERED: ATENOLOL50 M1 PO (21:34)
[2018-09-18] MEDS ORDERED: LISINOPRIL40 MG PO (21:35)
[2018-09-19] VITALS: BP 124/45
[2018-09-19 06:32] LABS: ACT PARTIAL THROMBO TIME 23.5 SECONDS (20.8-31.5)
[2018-09-19 06:41] LABS: ALBUMIN 2.9 gm/dl (3.1-4.5); CREATININE 1.15 mg/dL (0.55-1.02); POTASSIUM 4.4 mmol/L (3.5-5.1); TOTAL PROTEIN 6.2 gm/dL (6.4-8.2)
[2018-09-19 06:49] LABS: BASO % 0.2 % (0.0-1.0); EOS # 0.1 10*3/uL (0.0-0.4); EOS % 2.2 % (1.0-4.0); LYMPH % 20.9 % (27.0-41.0); MEAN CELL VOLUME 89.5 fl (81.0-99.0); MEAN CORPUSCULAR HGB 28.8 pg (27.0-31.0); MEAN CORPUSCULAR HGB CONC 32.2 g/dl (33.0-37.0); MONO # 0.3 10*3/uL (0.1-1.0); MONO % 6.5 % (3.0-9.0); NEUT # 3.2 10*3/uL (2.3-7.9); NEUT % 69.8 % (47.0-73.0); PLATELET COUNT AUTOMATED 175 10*3/uL (130-400); RED BLOOD COUNT 3.89 10*6/uL (4.10-5.10); RED CELL DISTRI WIDTH 13.7 % (0-14.5); WHITE BLOOD COUNT 4.6 10*3/uL (4.8-10.8)
[2018-09-19 06:50] LABS: PHOSPHOROUS 3.3 mg/dL (2.5-4.9); THYROID STIM HORMONE (HS) 0.611 uIU/ml (0.358-4.75)
[2018-09-19 07:03] LABS: HEMATOCRIT 34.8 % (37.0-47.0); HEMOGLOBIN 11.2 g/dl (12.0-16.0)
[2018-09-19 08:00] VITALS: BP 116/50
--- NOTE | 2018-09-19 09:00 | NUR ---
Extension Course Coordinator in to talk to patient. Patient states lives at home with . There are few steps in the home. Physician: [facility] Pharmacy: [facility] Home health services: none at present Patient's level of ADLs: INDEPENDENT Patient has working utilities: all working DME: walker and cane Follow-up physician's appointment after d/c: will be made by hospitalist nurse director upon discharge Does patient want to access PORTAL?: no Discharge plan discussed with patient, patient lives at home with , she states she is independent in adls and uses a cane occasionally for ambulation, patient states she had ovhh in the past, but doesn't feel she needs them at this time. patient states she will be going home when able and denies any home needs. she has appointment at this [facility] and states she drives herself to the appointments. case management will follow SHAILA GOMEZ
--- NOTE | 2018-09-19 09:26 | NUR ---
REDRESSED PATIENT'S ABDOMINAL WOUND WITH MAXORB, ABD PADS, AND TAPE. PATIENT'S WOUND SEEPING PURULENT DRAINAGE. PATIENT STATES HER ABDOMEN IS TENDER.
--- NOTE | 2018-09-19 10:19 | NUR ---
CALLED DR DALY TO MAKE HIM AWARE THAT WOUND CARE ORDERS ARE STILL NEEDED.
[2018-09-19 12:00] VITALS: BP 122/60
--- NOTE | 2018-09-19 14:00 | NUR ---
PATIENT RECEIVED TYLENOL FOR PAIN RATED 4/10.
--- NOTE | 2018-09-19 15:19 | NUR ---
TYLENOL EFFECTIVE FOR PATIENT. PAIN LEVEL NOW STATED 2/10.
--- NOTE | 2018-09-19 15:26 | NUR ---
JAEL KISER [id number] Please refer to the physician's history and physical for past medical history, comorbid conditions, and allergies. Diagnosis: RENAL INSUFFICIENCY,CHRONIC ABDOMINAL WOUND Romulo Score: 23,LOW OR NO RISK WOUND DESCRIPTIONS: Location of the wound: Midline Lower ABD Thickness: Full Size: 2.3cm X 1.0cm X 2.0cm Tunneling: none Undermining: none Sinus Tract: none Presence of Exudate: fecal Amount: Moderate Color: Red Odor: Foul Periwound Skin Appearance: Normal Wound edges: approximated Pain (associated with wound): denied at time of assessment How does patient state this happened? patient states she had surgery previously and "area won't heal." Surface the patient is resting on: Isoflex SKIN PREVENTION RECOMMENDATION: 1. Pressure redistribution support surface as appropriate 2. Elevate heels 3. Remove boots/TEDS every shift and reapply 4. Head of bed 30 degrees as tolerated 5. Assess nutrition and hydration 6. Manage moisture 7. Avoid the use of containment devices while in bed 8. Use absorptive products on surfaces limit layers of linens on bed 9. Turn and reposition every 1-2 hours in bed and every 1 hour in chair as tolerated 10. Weight shifts every 15 minutes while up in chair 11. Offloading with pillows or device to keep heels elevated off bed 12. Monitor skin at least every shift 13. Inspect under medical devices twice a day WOUND TREATMENT RECOMMENDATIONS: Spoke with Dr. Lakhani regarding patient's wound. Per request of Dr. Lakhani ostomy appliance to be applied for drainage.
--- NOTE | 2018-09-19 15:56 | NUR ---
Dr. Jordan notified of wound care recommendations.
[2018-09-19 16:00] VITALS: BP 134/62
[2018-09-19 20:00] VITALS: BP 157/59
[2018-09-20] VITALS (9 sets, daily range): BP systolic 140–160; BP diastolic 50–80
--- NOTE | 2018-09-20 00:42 | NUR ---
24 HR chart check completed.
--- NOTE | 2018-09-20 04:29 | NUR ---
PATIENT RESTING IN BED WITH NO S/S OF DISTRESS. BED IN LOWEST POSITION, CALL LIGHT IN REACH
[2018-09-20 06:29] LABS: BASO % 0.2 % (0.0-1.0); EOS # 0.2 10*3/uL (0.0-0.4); EOS % 3.4 % (1.0-4.0); HEMATOCRIT 35.2 % (37.0-47.0); HEMOGLOBIN 11.4 g/dl (12.0-16.0); LYMPH # 1.5 10*3/uL (1.3-4.4); LYMPH % 30.6 % (27.0-41.0); MEAN CELL VOLUME 89.6 fl (81.0-99.0); MEAN CORPUSCULAR HGB CONC 32.4 g/dl (33.0-37.0); MONO # 0.4 10*3/uL (0.1-1.0); MONO % 8.1 % (3.0-9.0); NEUT # 2.9 10*3/uL (2.3-7.9); NEUT % 57.5 % (47.0-73.0); PLATELET COUNT AUTOMATED 177 10*3/uL (130-400); RED BLOOD COUNT 3.93 10*6/uL (4.10-5.10); RED CELL DISTRI WIDTH 13.7 % (0-14.5)
[2018-09-20 06:59] LABS: BUN 8 mg/dl (7-24); CHLORIDE 108 mmol/L (98-107); CREATININE 0.98 mg/dL (0.55-1.02); SODIUM 141 mmol/L (136-145)
--- NOTE | 2018-09-20 09:00 | NUR ---
case managment visits with patient, discussed a discharge plan including a short term long-term if needed for wound care or iv antibiotics, patient stated she didn't want to go to a SNF and would go home when able. case management will follow
--- NOTE | 2018-09-20 19:55 | NUR ---
PATIENT RESTING IN BED TALKING ON PHONE. NO NEEDS MADE. NO S/S OF DISTRESS. IV INFUSING WITHOUT DIFFICULTY. BED IN LOWEST POSITION, CALL LIGHT IN REACH
--- NOTE | 2018-09-20 19:58 | NUR ---
DR MURRELL AWARE OF HOME MEDICATIONS NOT BEING STARTED. STATES HE WILL TAKE A LOOK AT THEM
[2018-09-21] VITALS: BP 120/43
--- NOTE | 2018-09-21 01:27 | NUR ---
24 HR chart check completed.
[2018-09-21 06:00] LABS: BASO % 0.5 % (0.0-1.0); EOS # 0.2 10*3/uL (0.0-0.4); EOS % 5.7 % (1.0-4.0); HEMATOCRIT 36.4 % (37.0-47.0); HEMOGLOBIN 11.5 g/dl (12.0-16.0); LYMPH # 1.3 10*3/uL (1.3-4.4); LYMPH % 32.6 % (27.0-41.0); MEAN CELL VOLUME 90.5 fl (81.0-99.0); MEAN CORPUSCULAR HGB 28.6 pg (27.0-31.0); MEAN CORPUSCULAR HGB CONC 31.6 g/dl (33.0-37.0); MEAN PLATELET VOLUME 10.1 fl (9.6-12.3); MONO # 0.4 10*3/uL (0.1-1.0); MONO % 9.8 % (3.0-9.0); NEUT % 51.1 % (47.0-73.0); PLATELET COUNT AUTOMATED 174 10*3/uL (130-400); RED BLOOD COUNT 4.02 10*6/uL (4.10-5.10); RED CELL DISTRI WIDTH 13.6 % (0-14.5); WHITE BLOOD COUNT 3.9 10*3/uL (4.8-10.8)
[2018-09-21 06:11] LABS: BUN 9 mg/dl (7-24); CHLORIDE 108 mmol/L (98-107); CREATININE 0.94 mg/dL (0.55-1.02); POTASSIUM 4.1 mmol/L (3.5-5.1); SODIUM 142 mmol/L (136-145)
[2018-09-21 08:00] VITALS: BP 118/50
--- NOTE | 2018-09-21 09:00 | NUR ---
case management visits with patient, patient will be having surgery on Wednesday and possible wound vac placement, discussed with patient a short term long term or an LTAC is qualifies, educated her that having this equipement and possibly iv antibiotics may be difficulty for her to maintain at home even with home health services. patient stated she understood and would discuss this with her family. case management and tool and production planner will follow
[2018-09-21 12:00] VITALS: BP 158/60
[2018-09-21 16:00] VITALS: BP 149/64
[2018-09-21 20:00] VITALS: BP 114/103
--- NOTE | 2018-09-21 23:36 | NUR ---
NOTIFIED DR MURRELL BLOOD GLUCOSE 77. RN PROVIDED JUICE TO PT.
[2018-09-22] VITALS: BP 122/49
[2018-09-22 08:00] VITALS: BP 150/60
--- NOTE | 2018-09-22 08:00 | NUR ---
Patient resting quietly with no c/o discomfort. Respirations easy and regular. Vital signs stable. No overt distress. ALEXIS LOUIS
--- NOTE | 2018-09-22 09:00 | NUR ---
case management visits with patient, patient upset with case management for discussing options of an LTAC or SNF upon discharge. educated patient that these were only options she would have if her care upon discharge warranted a stay in either of these. patient stated she wasn't going to either of these facilities and if she needed anything she wanted OV. case management will follow
[2018-09-22 12:00] VITALS: BP 142/68
[2018-09-22 16:00] VITALS: BP 149/65
[2018-09-22 20:00] VITALS: BP 155/70
--- NOTE | 2018-09-22 21:40 | NUR ---
RN NOTIFIED DR SEBASTIAN THAT PT HAS NO BOWEL PREP ORDERS CURRENTLY. DR SEBASTIAN ORDERED MIRALAX AND POWERADE. SEE EMAR FOE FURTHER DOCUMENTATION.
[2018-09-23] VITALS (11 sets, daily range): BP systolic 106–163; BP diastolic 52–71
[2018-09-23 06:51] LABS: EOS # 0.1 10*3/uL (0.0-0.4); EOS % 1.5 % (1.0-4.0); HEMATOCRIT 36.1 % (37.0-47.0); HEMOGLOBIN 11.9 g/dl (12.0-16.0); LYMPH # 1.1 10*3/uL (1.3-4.4); MEAN CELL VOLUME 89.1 fl (81.0-99.0); MEAN CORPUSCULAR HGB 29.4 pg (27.0-31.0); MEAN PLATELET VOLUME 9.5 fl (9.6-12.3); MONO # 0.4 10*3/uL (0.1-1.0); MONO % 5.8 % (3.0-9.0); NEUT # 4.6 10*3/uL (2.3-7.9); NEUT % 74.5 % (47.0-73.0); PLATELET COUNT AUTOMATED 197 10*3/uL (130-400); RED BLOOD COUNT 4.05 10*6/uL (4.10-5.10); RED CELL DISTRI WIDTH 13.6 % (0-14.5); WHITE BLOOD COUNT 6.2 10*3/uL (4.8-10.8)
[2018-09-23 07:00] LABS: BUN 6 mg/dl (7-24); CHLORIDE 105 mmol/L (98-107); CREATININE 0.97 mg/dL (0.55-1.02); POTASSIUM 3.6 mmol/L (3.5-5.1); SODIUM 141 mmol/L (136-145)
--- NOTE | 2018-09-23 18:24 | NUR ---
MORPHINE GIVEN FOR C/O ABDM. PAIN, RATES 10/10 ON PAIN SCALE. WILL MONITOR.
[2018-09-24] VITALS: BP 94/45
[2018-09-24 06:26] LABS: BASO % 0.1 % (0.0-1.0); HEMATOCRIT 37.1 % (37.0-47.0); HEMOGLOBIN 11.9 g/dl (12.0-16.0); LYMPH # 1.3 10*3/uL (1.3-4.4); LYMPH % 15.3 % (27.0-41.0); MEAN CELL VOLUME 91.4 fl (81.0-99.0); MEAN CORPUSCULAR HGB 29.3 pg (27.0-31.0); MEAN CORPUSCULAR HGB CONC 32.1 g/dl (33.0-37.0); MEAN PLATELET VOLUME 9.5 fl (9.6-12.3); MONO # 0.5 10*3/uL (0.1-1.0); MONO % 6.5 % (3.0-9.0); NEUT # 6.5 10*3/uL (2.3-7.9); NEUT % 77.5 % (47.0-73.0); PLATELET COUNT AUTOMATED 197 10*3/uL (130-400); RED BLOOD COUNT 4.06 10*6/uL (4.10-5.10); RED CELL DISTRI WIDTH 13.7 % (0-14.5); WHITE BLOOD COUNT 8.4 10*3/uL (4.8-10.8)
[2018-09-24 07:02] LABS: ALBUMIN 2.5 gm/dl (3.1-4.5); ALKALINE PHOSPHATASE 72 U/L (45-117); BUN 8 mg/dl (7-24); CHLORIDE 110 mmol/L (98-107); POTASSIUM 4.5 mmol/L (3.5-5.1); SGOT/AST 14 IU/L (3-35); SGPT/ALT 14 U/L (12-78); SODIUM 144 mmol/L (136-145); TOTAL PROTEIN 5.5 gm/dL (6.4-8.2)
[2018-09-24 08:00] VITALS: BP 130/54
--- NOTE | 2018-09-24 08:35 | NUR ---
MORPINE NOT EFFECTIVE PER PT.
--- NOTE | 2018-09-24 09:28 | NUR ---
DILAUDID GIVEN FOR C/O ABDM. PAIN. RATES 8/10 ON PAIN SCALE. WILL MONITOR.
--- NOTE | 2018-09-24 10:30 | NUR ---
HODA HELPING PER PT. WILL MONITOR.
[2018-09-24 12:00] VITALS: BP 146/62
--- NOTE | 2018-09-24 15:04 | NUR ---
SPOKE WITH DR. SEBASTIAN IN RE: LOVENOX INJECTION. HE STATED THAT IT WAS FINE TO GIVE.
[2018-09-24 16:00] VITALS: BP 131/67
--- NOTE | 2018-09-24 19:23 | NUR ---
ASSUMING CARE OF PATIENT. REPORT RECIEVED FROM LOVE POOLE. PATIENT SITTING UP IN BED AT THIS TIME WITH VISITORS AT BED SIDE. BED IS IN LOWEST POSITION WITH WHEELS LOCKED. IV FLUIDS INFUSING INTO R ARM. WOUND VAC INTACT. CALL LIGHT IS WITHIN REACH. ENCOURAGED TO USE CALL LIGHT FOR NEEDS. WILL MONITOR.
--- NOTE | 2018-09-24 19:24 | NUR ---
DILAUDID GIVEN FOR C/O BACK/ABDM. PAIN. RATES 10/10 ON PAIN SCALE. WILL MONITOR.
[2018-09-24 20:00] VITALS: BP 127/59
--- NOTE | 2018-09-24 20:24 | NUR ---
DR ANTHONY INFORMED OR TYMAPNIC TEMP 101.[address] ANTHONY GIVEN ONE TIME DOSE OF MOTRIN 800.
[2018-09-25] VITALS: BP 142/60
--- NOTE | 2018-09-25 05:09 | NUR ---
SPOKE WITH DR FELTON REGARDING PATIENT COMPLAINTS OF BACK PAIN AND DILAUDID ORDERS FROM OR. PER DR FELTON WILL PLACE ORDERS FOR SOMETHING FOR PAIN.
[2018-09-25 06:20] LABS: BASO % 0.1 % (0.0-1.0); EOS # 0.2 10*3/uL (0.0-0.4); EOS % 3.2 % (1.0-4.0); HEMATOCRIT 33.6 % (37.0-47.0); HEMOGLOBIN 10.6 g/dl (12.0-16.0); LYMPH # 1.2 10*3/uL (1.3-4.4); LYMPH % 16.8 % (27.0-41.0); MEAN CELL VOLUME 91.8 fl (81.0-99.0); MEAN CORPUSCULAR HGB CONC 31.5 g/dl (33.0-37.0); MEAN PLATELET VOLUME 9.9 fl (9.6-12.3); MONO # 0.5 10*3/uL (0.1-1.0); MONO % 6.5 % (3.0-9.0); NEUT # 5.3 10*3/uL (2.3-7.9); NEUT % 72.8 % (47.0-73.0); PLATELET COUNT AUTOMATED 192 10*3/uL (130-400); RED BLOOD COUNT 3.66 10*6/uL (4.10-5.10); RED CELL DISTRI WIDTH 13.9 % (0-14.5); WHITE BLOOD COUNT 7.3 10*3/uL (4.8-10.8)
[2018-09-25 06:46] LABS: BUN 7 mg/dl (7-24); CHLORIDE 106 mmol/L (98-107); SODIUM 140 mmol/L (136-145)
[2018-09-25 07:37] LABS: POTASSIUM 3.6 mmol/L (3.5-5.1)
[2018-09-25 08:00] VITALS: BP 146/53
[2018-09-25 12:00] VITALS: BP 150/70
[2018-09-25 16:00] VITALS: BP 170/69
--- NOTE | 2018-09-25 17:58 | NUR ---
PT UP IN CHAIR AND TOLERATING
--- NOTE | 2018-09-25 18:08 | NUR ---
I/S IS IN THE ROOM ON STAND, PT UP IN CHAIR AND DOES NOT WANT TO DO I/S. PT. HAS DONE I/S WITH RN.
--- NOTE | 2018-09-25 19:22 | NUR ---
IV DILAUDID GIVEN FOR C/O OF ABD PAIN RATING 6/10
[2018-09-25 20:00] VITALS: BP 188/82
--- NOTE | 2018-09-25 23:52 | NUR ---
PT MEDICATED W/DILAUDID FOR C/O BACK PAIN. PT ASSISTED TO BSC AND URINATED. ASSISTED BACK TO BED. NO C/O ABD PAIN. LUIS ALFREDO INTACT AND WELL APPROXIMATED. WOUND VAC INTACT. CALL LIGHT IN REACH.
[2018-09-26] VITALS: BP 146/56
--- NOTE | 2018-09-26 06:20 | NUR ---
PT MEDICATED W/DILAUDID IVP PER PT REQUEST FOR C/O BACK PAIN. CALL LIGHT IN REACH.
[2018-09-26 08:00] VITALS: BP 130/49
--- NOTE | 2018-09-26 08:30 | NUR ---
PATIENT RESTING QUIETLY IN BED WITH EYES CLOSED. AROUSES EASILY. RESPIRATIONS EASY, REGULAR ON RA. ABD WOUND VAC INTACT. NO LEAKAGE PRESENT. EARLIER PAIN MEDICATION EFFECTIVE AT THIS TIME. IV TYLENOL INFUSING PER ORDER. WILL CONTINUE TO MONITOR. VSS. CALL LIGHT WITHIN REACH.
--- NOTE | 2018-09-26 09:00 | NUR ---
kit planner will visit with patient and discuss a discharge plan
--- NOTE | 2018-09-26 09:30 | NUR ---
PT. WAS INSTRUCTED ON I/S AND THE IMPORTANCE OF USING. PT. ACHIEVED A VOLUME OF 1000 TO 1500. GOOD EFFORT.
--- NOTE | 2018-09-26 09:49 | NUR ---
JAEL KISER [id number] Please refer to the physician's history and physical for past medical history, comorbid conditions, and allergies. Diagnosis: RENAL INSUFFICIENCY,CHRONIC ABDOMINAL WOUND Romulo Score: 22,LOW OR NO RISK WOUND DESCRIPTIONS: Wound vac is intact to lower abdomen at 125mmHg intensity is low and continous. Patient has 4 ester intact to upper abdomen above the wound vac. Left side of wound vac has 5 ester intact. No drainage noted at time of assessment. No redness noted at time of assessment. Patient stated the tubing under the dressing is for pain control per Dr. Lakhani. Surface the patient is resting on: Isoflex SKIN PREVENTION RECOMMENDATION: 1. Pressure redistribution support surface as appropriate 2. Elevate heels 3. Remove boots/TEDS every shift and reapply 4. Head of bed 30 degrees as tolerated 5. Assess nutrition and hydration 6. Manage moisture 7. Avoid the use of containment devices while in bed 8. Use absorptive products on surfaces limit layers of linens on bed 9. Turn and reposition every 1-2 hours in bed and every 1 hour in chair as tolerated 10. Weight shifts every 15 minutes while up in chair 11. Offloading with pillows or device to keep heels elevated off bed 12. Monitor skin at least every shift 13. Inspect under medical devices twice a day WOUND TREATMENT RECOMMENDATIONS: Continue current dressing orders per Dr. Lakhani.
--- NOTE | 2018-09-26 10:20 | NUR ---
PATIENT MEDICATED WITH IV DILAUDID SLOWLY PER PRN ORDER FOR C/O ABD PAIN. RATES PAIN 04/01. WILL MONITOR EFFECTIVENESS.
--- NOTE | 2018-09-26 10:40 | NUR ---
IV SITE DC'D TO RAC. CATH INTACT. SITE ASMPTOMATIC. PT TOLERATED WELL. NEW IV INSERTED DOCUMENTED.
--- NOTE | 2018-09-26 11:12 | NUR ---
PATIENT REFUSING AM BATH AND TO GET UP IN THE CHAIR. PATIENT ENCOURAGED TO GET OOB AND REPOSITION. PATIENT WANTS TO REST AT THIS TIME. WILL CONTINUE TO MONITOR.
--- NOTE | 2018-09-26 11:52 | NUR ---
IN TO SEE PATIENT.
[2018-09-26 12:00] VITALS: BP 133/53
--- NOTE | 2018-09-26 12:41 | NUR ---
IN TO SEE PATIENT.
--- NOTE | 2018-09-26 12:54 | NUR ---
In to see patient to discuss discharge planning. Patient did state she would be following up in the resident clinic upon discharge. I asked if she felt she needed anything else. She asked for home health visiting nurse and PT through [facility]. Will need new home health order prior to discharge.
--- NOTE | 2018-09-26 13:18 | NUR ---
PATIENT OOB AND PLACED IN BEDSIDE CHAIR. PT ENCOURAGED TO GET OOB. PT VOICED UNDERSTANDING. WILL CONTINUE TO MONITOR.
--- NOTE | 2018-09-26 14:37 | NUR ---
PT MEDICATED WITH IV DILAUDID PER PRN ORDER FOR C/O LOWER ABD PAIN. RATES PAIN 04/01. WILL MONITOR EFFECTIVENESS.
[2018-09-26 16:00] VITALS: BP 134/49
--- NOTE | 2018-09-26 16:00 | NUR ---
IV DILAUDID EFFECTIVE PER PT. WILL CONTINUE TO MONITOR.
--- NOTE | 2018-09-26 19:35 | NUR ---
PT MEDICATED W/NORCO FOR C/O RIGHT SHOULDER AND BACK PAIN. PT ENCOURAGED TO GET OOB AND USE IS. PT STATES "I WILL TOMORROW." PT TEACHING GIVEN ON NEED TO AMBULATE AND USE IS TO AVOID PNEUMONIA. CALL LIGHT IN REACH.
[2018-09-26 20:00] VITALS: BP 156/66
--- NOTE | 2018-09-26 21:10 | NUR ---
PT CONTINUES TO C/O BACK PAIN. PT STATES THAT NORCO WAS INEFFECTIVE. PT MEDICATED W/DILAUDID IVP. PT REMINDED THAT SHE WILL NOT BE D/C HOME W/DILAUDID. SHE WILL ONLY BY D/C W/PO PAIN MED. PT ALSO REMINDED SHE STILL HAS THE PAIN MED GOING DIRECTLY INTO HER ABD. PT STATES HER PAIN IS NOW 10/10.
[2018-09-27] VITALS: BP 169/62
--- NOTE | 2018-09-27 02:02 | NUR ---
PT C/O NAUSEA AND ABD PAIN. MEDICATED W/ZOFRAN AND DILAUDID IVP. PT SITTING ON SIDE OF BED. CALL LIGHT IN REACH.
--- NOTE | 2018-09-27 03:00 | NUR ---
PT RESTING QUIETLY IN BED AT THIS TIME. NO FURTHER S/S OF NAUSEA/PAIN NOTED. CALL LIGHT IN REACH.
--- NOTE | 2018-09-27 06:33 | NUR ---
PT MEDICATED W/IVP DILAUDID FOR C/O RIGHT SHOULDER PAIN 06/01. PT ENCOURAGED TO MOVE. PT OFFERED PO PAIN MED FIRST. PT REFUSED. PT ENCOURAGED TO TRY PO MEDS TODAY. PT DOES NOT ACKNOWLEDGE THIS NURSE. CALL LIGHT IN REACH.
--- NOTE | 2018-09-27 06:45 | NUR ---
PT SAT 82% RA. O2 APPLIED VIA NC. SAT INCREASED TO 90%. WILL CONTINUE TO MONITOR.
[2018-09-27 08:00] VITALS: BP 116/52; BP 146/82
--- NOTE | 2018-09-27 08:00 | NUR ---
PT REFUSED TO TAKE NORVASC, STATES SHE ONLY TAKES IT PRN WHILE AT HOME. SHARAN.TIMI PINA
--- NOTE | 2018-09-27 09:15 | NUR ---
PATIENT C/O LEFT SHOULDER PAIN 03/01. NARCO ADMINISTERED. WILL FOLLOW UP WITH EFFECTIVENESS. ROSA MARIA BAUTISTA SPCC
--- NOTE | 2018-09-27 10:00 | NUR ---
PT IS DOMINICK OF BED IN CHAIR, SMILING, PLEASANT, NO C/O PAIN AT THIS TIME. WILL CONTINUE TO ASSESS. YOVANI SPNRCC
--- NOTE | 2018-09-27 10:15 | NUR ---
NARCO EFFECTIVE PAIN LEVEL DECREASED. PATIENT RESTING NO COMPLAINTS AT THIS TIME. ROSA MARIA BAUTISTA SPCC
--- NOTE | 2018-09-27 10:20 | NUR ---
In to see patient to discuss a backup plan for snf. Patient stated: "I ain't going to no longterm! I put my mom in one for 6 months and she never came back out!". Patient is refusing. I did let her know that becuase of her insurance she would have to choose either [facility] or [facility]. Again she stated she will not go to a longterm, she is going home with [facility] and she is going to her daughters house in [place].
--- NOTE | 2018-09-27 11:19 | NUR ---
Occupational Therapy evaluation completed on 4 with full eval to follow. Precautions include fall risk, wound vac, pain pump, bed alarm. Patient is high complexity level 56120 via chart review, testing and evaluation. Recommend OT per pOC and SNF. However patient declines SNF and insists upon home at daughter's home and sleeping on sofa initially. Recommend OT,PT,SN,TROUBLE SHOOTING MECHANIC upon d/c. Thank you. Sejal Ogden OTR/l
--- NOTE | 2018-09-27 11:37 | NUR ---
PHYSICAL THERAPY PAtient evaluated on 4, full evaluation to follow. Continue with PT as per plan of care with fall, wound vac, abd incision and wounds, alarms and mod (A) precautions. Strongly recommend SNF, patient vehemently declines. PAtient is moderate complexity via chart review, tests and evaluation: 24084. Thank you for this referral. Norma Martin,PT
[2018-09-27 12:00] VITALS: BP 119/48; BP 134/62
--- NOTE | 2018-09-27 13:00 | NUR ---
case management contacted patient's nurse regarding wound vac form, gave form to nurse to have Dr Lakhani fill out if he wanted patient to go home with wound vac. nurse spoke to Dr Lakhani, he is removing wound vac today and will not be needed at home
--- NOTE | 2018-09-27 13:25 | NUR ---
DR SEBASTIAN SEES PT. HE REMOVED WOUND VAC. WOUND NOTED TO BE BEEFY RED. WET TO DRY DRSG APPLIED BY DR SEBASTIAN. HE STATES DRSG TO BE CHANGED DAILY. HE STATES HE WILL PUT IN ORDERS. HE INSTRUCTED PT TO GET OUT OF BED AND AMBULATE IN HALLWAY. THIS NURSE ASKS PT TO IF SHE WANTS TO AMBULATE NOW, SHE DECLINES.
--- NOTE | 2018-09-27 13:25 | NUR ---
Wound Vac d/c and removed per Dr. Akbar, dressed with wet to dry dressing. [facility] ANGELINE
--- NOTE | 2018-09-27 14:56 | NUR ---
NORCO GIVEN FOR C/O BACK/ABDM. PAIN. RATES 8/10 ON PAIN SCALE. WILL MONITOR.
[2018-09-27 16:00] VITALS: BP 150/61
--- NOTE | 2018-09-27 18:53 | NUR ---
ZOFRAN GIVEN FOR C/O NAUSEA, DILAUDID GIVEN FOR C/O ABDM. PAIN. WILL MONITOR
--- NOTE | 2018-09-27 19:00 | NUR ---
PT RESTING QUIETLY IN BED DURING BEDSIDE SHIFT REPORT. NO S/S OF DISTRESS NOTED. PAIN BALL INTACT. CALL LIGHT IN REACH.
[2018-09-27 20:00] VITALS: BP 140/52
[2018-09-28] VITALS: BP 156/63
--- NOTE | 2018-09-28 01:14 | NUR ---
PT MEDICATED W/DILAUDID IVP FOR C/O ABD PAIN 03/01. REPOSITIONED FOR COMFORT. CALL LIGHT IN REACH.
--- NOTE | 2018-09-28 02:10 | NUR ---
PT RESTING QUIETLY IN BED AT THIS TIME. NO S/S OF DISTRESS NOTED.
[2018-09-28 08:00] VITALS: BP 138/60
--- NOTE | 2018-09-28 10:05 | NUR ---
OT NOTE Pt was seen this A.M. 1:1 for 15 minute OT session. Upon arrival pt was supine in bed, pt identified by name and and had reports of 6/10 stomach pain. Attempted to educate pt on log roll technique for increased I in bed mobility and pt stated "let me do it my way" and would not allow therapist to finish education. Pt raised head of bed to transfer supine to sit EOB which she was able to complete with SBA. Educated pt on importance of training with head of bed flat to simulate home set-up. Pt then completed sit to stand transfer from bed level with CGA and use of w/w for UE support. Functional mobility completed into the bathroom with CGA and use of w/w with educatio on safety techniques for tight turning and keeping the walker with her versus walking away without it. There she transferred on to standard commode with CGA, clothing management completed with CGA, and toilet hygiene completed with distant supervision while seated. Pt then transferred off standard commode with [place] due to low surface. She then stood sink side while washing her hands and face with SBA. Pt had an activity tolerance of aprox 10 minutes before requesting to be done due to fatigue and pain. Functional mobility then completed back to recliner where she was left sitting upright with call light in hand, tray table in place, and bed alarm activated for safety. Continue with rec D/C plan to SNF. KIRK Riley
--- NOTE | 2018-09-28 10:09 | NUR ---
PHYSICAL THERAPY Patient presented to therapy in supine with report of bilateral shoulder pain, knee pain and abdominal pain of 8/10. Patient agrees to therapy session. Patient was identified by name and . Patient performed supine to sitting at EOB with SBA. Patient transferred STS with CGA. Patient ambulated with W/W and Close Supervision for 40' x 1. Patient transferred from [facility] with MIN A X 1. Patient performed transfer to bedside chair with SBA. Patient was left in bedside chair with CALL LIGHT WITHIN REACH, CHAIR ALARM ATTACHED AND TESTED AND TRAY TABLE WITHIN REACH. Patient was 1:1 with this BUDGET TECHNICIAN for 20 minutes total. ANGELO POSEY BUDGET TECHNICIAN
--- NOTE | 2018-09-28 11:28 | NUR ---
FOLLOW UP APPOINTMENT MADE WITH IN WOUND CARE CENTER Wednesday10-06-18 AT 0900.
[2018-09-28 12:00] VITALS: BP 150/56
--- NOTE | 2018-09-28 13:01 | NUR ---
DR. SEBASTIAN IN TO SEE PT AT THIS TIME. CONTINUE TO ENCOURAGE PT TO AMBULATE AND BE MOBILE WITH STAFF AND THERAPY. PT REQUIREINJG MUCH ENCOURAGEMENT TO BE UP TO AMBULATE.
--- NOTE | 2018-09-28 14:20 | NUR ---
PT COMPLAIN OF NAUSEA, MEDICATION ADMINISTERED AT THIS TIME. PT AMBULATED DOWN THE HALLWAY WITH THERAPY AT THIS TIME. WITH MUCH PROMPTING FROM NURSING AND THERAPIST.
--- NOTE | 2018-09-28 14:20 | NUR ---
OT NOTE Pt was seen this P.M. 1:1 for second OT session. Upon arrival pt was supine in bed, pt identified by name and and had reports of feeling nauseated and having stomach pain. Pt transferred supine to sit EOB with head of bed elevated with SBA, due to still declining log roll technique. Pt completed functional mobility into the bathroom with SBA and use of w/w for UE support. There she transferred on/off standard commode with SBA, clothing management completed with SBA, and toilet hygiene completed RI while seated. Pt then stood sink side while washing her hands and face with SBA, pt required max verbal prompts for safety with the walker due to being impulsive, having poor turning safety, and walkig away without it. Pt was then left sitting upright in recliner with call light in hand, tray table in place, and body alarm activated for safety. Continue with rec D/C plan to SNF. MINH Riley/Jigna
--- NOTE | 2018-09-28 14:33 | NUR ---
PHYSICAL THERAPY Patient presented to therapy in supine with report of not wanting to do therapy today due to fatigue, stomach pain, and not feeling well. Patient's nurse was informed of the patient not wanting to do therapy. Patient's nurse RN was informed of this and she proceded to talk to the patient. Patient agrees to therapy session after the nurse talked with patient. Patient was identified by name and . Patient performed supine to sitting at EOB transfer with SBA. Patient transferred STS with SBA. Patient ambulated with no assistive device and Close Supervision for 100' x 1 with no LOB, SOB, or other difficulty. Patient transferred to bedside chair with SBA. Patient was left in bedside chair with call light within reach, chair alarm tested and attached, and tray table near patient. Patient was 1:1 with this PTAfor 16 minutes total. ANGELO POSEY COUNTY EXTENSION AGENT
[2018-09-28 16:00] VITALS: BP 124/51
--- NOTE | 2018-09-28 16:30 | NUR ---
PT COMPLAINT OF PAIN IN BACK AND ABDOMEN. 7 ON 1-10 NORCO GIVEN AT THIS TIME. DRESSING CHANGED TO ADBOMEN, SCANT BLOOD NOTED TO PACKING, NO DRAINAGE OR FOUL ODOR NOTED, ASYMPTOMATIC AT OPENING.
[2018-09-28 20:00] VITALS: BP 154/67
--- NOTE | 2018-09-28 21:08 | NUR ---
PTS DAUGHTER CALLED STATING SHE WANTS HER MOTHER TO HAVE A CT SCAN R/T COMPLAINTS HER MOTHER SHARED WITH HER. I WENT IN TO PTS ROOM AND SHE HAD A SMALL EMESIS AND WAS COMPLAINING OF ABDOMINAL PAIN RATED 8/10. I ADMINISTERED IV PHENERGAN, PO NORCO AND CHANGED BUPIVACAINE PAIN BALL. I INQUIRED TO BE SURE THAT PT WAS EATING, DRINKING AND HAD A BM TODAY AND SHE STATED SHE WAS RINKING BUT HAS NOT EATEN MUCH. SHE ALSO CONFIRMED THAT SHE HAS HAD 3 LOOSE BOWEL MOVEMENTS TODAY. I EXPLAINED THAT SHE LIKELY VOMITED R/T TAKING MEDS AND NOT EATING MUCH AND HAVING LOOSE STOOL BECAUSE OF MOSTLY LIQUID INTAKE. I THEN SPOKE TO DR MURRELL AND DR SEBASTIAN AND SHARED DAUGHTERS CONCERNS. BOTH STATED THERE IS NO CLINICAL REASON FOR A CT AT THIS TIME. DR SEBASTIAN STATED HE WILL ASSESS PT IN THE MORNING TO SEE IF PTS SYMPTOMS ARE WORSENING. I SPOKE TO DAUGHTER AND INFORMED HER. SHE STATED SHE WOULD LIKE DR SEBASTIAN TO CALL HER IN THE MORNING. I STATED I WOULD PASS THIS ON IN REPORT.
--- NOTE | 2018-09-28 21:40 | NUR ---
Patient resting quietly with no c/o discomfort. Respirations easy and regular. Vital signs stable. No overt distress. TIERRA GENAO
[2018-09-29] VITALS: BP 147/54
--- NOTE | 2018-09-29 | NUR ---
TOOK OVER CARE OF PT AT THIS TIME. PT RESTING IN BED, RESPIRATIONS UNLABORED. EASILY AROUSED. SCHEDULED REGLAN GIVEN VIA IV. DRESSING C/D/I TO ABDOMEN.NO COMPLAINTS VOICED AT THIS TIME. WILL CONTINUE TO MONITOR. CALL LIGHT IN REACH.
--- NOTE | 2018-09-29 05:23 | NUR ---
PT GIVEN NORCO 5-325 MG TABLET AT THIS TIME FOR C/O ABDOMINAL PAIN. RATES IT 05/02. WILL MONITOR FOR EFFECTIVENESS. CALL LIGHT IN REACH.
[2018-09-29 08:00] VITALS: BP 156/64
--- NOTE | 2018-09-29 09:00 | NUR ---
OV will be notified when patient is medically stable for discharge
--- NOTE | 2018-09-29 10:30 | NUR ---
PT CONTINUED C/O DIARREAH, NAUSEA AND DID HAVE WITNESS EMESIS AFTER MEDICATION ADMINISTRATION. I HELD SCHEDULED PO COLACE, ADMINISTERED IV DILAUDID AND IV PHENERGAN PER ORDER. WILL MONITOR FOR EFFECTIVENESS. DR BARBOSA AND DR SEBASTIAN INFORMED. DR SEBASTIAN STATED HE WILL RESTART PT IV TYLENOL SEE PT THIS AFTERNOON. NO NEW ORDERS. DR BARBOSA AWARE OF DR HALL PLAN.
[2018-09-29 12:00] VITALS: BP 126/56
--- NOTE | 2018-09-29 13:40 | NUR ---
PHYSICAL THERAPY Patient was supine in bed this pm when approached for therapy and reported not feeling well this afternoon. Patient states her stomach is upset, feeling very weak and had Emisis basin beside herin bed. Patient not appropriate for treatment at this time and will continue per POC as able. Darrion Miller, MANAGER OCCUPATIONAL
[2018-09-29 16:00] VITALS: BP 146/65
--- NOTE | 2018-09-29 16:13 | NUR ---
TYLENOL PO PROVIDED FOR ELEVATED TEMPERATURE. RN WILL CONTINUE TO MONITOR
--- NOTE | 2018-09-29 16:55 | NUR ---
OT DAILY NOTE PT NOT FEELING WELL ENOUGH TO TOLERATE OT THIS DATE. CONTINUE OT PLAN OF CARE ESTABLISHED. MINH ORTEGA/Jigna
[2018-09-29 20:00] VITALS: BP 122/50
[2018-09-30] VITALS: BP 103/48
[2018-09-30 06:10] LABS: BASO # 0.1 10*3/uL (0.0-0.1); BASO % 0.3 % (0.0-1.0); EOS # 0.3 10*3/uL (0.0-0.4); EOS % 1.8 % (1.0-4.0); HEMATOCRIT 34.4 % (37.0-47.0); HEMOGLOBIN 11.1 g/dl (12.0-16.0); LYMPH % 5.4 % (27.0-41.0); MEAN CELL VOLUME 89.4 fl (81.0-99.0); MEAN CORPUSCULAR HGB 28.8 pg (27.0-31.0); MEAN CORPUSCULAR HGB CONC 32.3 g/dl (33.0-37.0); MEAN PLATELET VOLUME 9.3 fl (9.6-12.3); MONO # 0.8 10*3/uL (0.1-1.0); MONO % 4.6 % (3.0-9.0); NEUT # 15.2 10*3/uL (2.3-7.9); NEUT % 87.2 % (47.0-73.0); PLATELET COUNT AUTOMATED 335 10*3/uL (130-400); RED BLOOD COUNT 3.85 10*6/uL (4.10-5.10); RED CELL DISTRI WIDTH 14.2 % (0-14.5); WHITE BLOOD COUNT 17.5 10*3/uL (4.8-10.8)
[2018-09-30 06:30] LABS: ALBUMIN 2.2 gm/dl (3.1-4.5); BUN 16 mg/dl (7-24); CHLORIDE 104 mmol/L (98-107); CREATININE 0.95 mg/dL (0.55-1.02); PHOSPHOROUS 2.7 mg/dL (2.5-4.9); POTASSIUM 3.2 mmol/L (3.5-5.1); SGOT/AST 27 IU/L (3-35); SGPT/ALT 22 U/L (12-78); SODIUM 139 mmol/L (136-145)
[2018-09-30 06:31] LABS: ALKALINE PHOSPHATASE 84 U/L (45-117); TOTAL PROTEIN 6.3 gm/dL (6.4-8.2)
[2018-09-30 08:00] VITALS: BP 102/48
--- NOTE | 2018-09-30 09:12 | NUR ---
PHYSICAL THERAPY Patient presented to therapy in supine with head of bed eelvated and report of being tired. Patient agrees to therapy session. Patient is not on spO2. Patient was identified by name and . Patient performed supine to sitting at EOB transfer with SBA. Patient transferred STS with SBA. Patient ambulated with W/W and CGA X 1 for 130' x 1. Patient transferred to bedside chair with CGA X 1. Patient was left in sitting position with chair alarm attached and tested, call light within reach, and tray table near patient. Patient was 1:1 with this PAPER FOLDER for 15 minutes total. ANGELO POSEY PAPER FOLDER
--- NOTE | 2018-09-30 09:20 | NUR ---
Currently checking with local and out of town intermediate facilities to see which ones are in network with [facility] and if they have any available beds. Will discuss findings with patient and family for options.
[2018-09-30 12:00] VITALS: BP 103/40
--- NOTE | 2018-09-30 14:02 | NUR ---
In to see patient to discuss discharge plans again. I have faxed a referral to [facility] and they are willing to accept. Patients daughter at bedside. Patient very rudely stated she has told me every day what her discharge plan is and to get out of her room. Daughter stated she is going to her "other" daughters house and getting [facility]. Contacted [facility] and canceled referral. Patient is going home with daughter and will have home health, she does not want bothered about this anymore.
[2018-09-30 16:00] VITALS: BP 103/50; BP 113/75
--- NOTE | 2018-09-30 17:20 | NUR ---
NOTIFIED DR SANDOVAL THAT PATIENT IS UNABLE TO TLERATE PO K DUR AT THIS TIME. IS ON FLOOR AT THIS TIME AND STATES HE WILL CHANGE ORDERS.
[2018-09-30 20:00] VITALS: BP 111/40
[2018-10-01] VITALS: BP 110/46
--- NOTE | 2018-10-01 04:31 | NUR ---
PATIENT SLEEPING. NO S/S OF DISTRESS NOTED. RESPIRATIONS EASY/REG ON RA. CALL LIGHT IN REACH
[2018-10-01 06:37] LABS: HEMATOCRIT 32.5 % (37.0-47.0); HEMOGLOBIN 10.6 g/dl (12.0-16.0); MEAN CELL VOLUME 90.3 fl (81.0-99.0); MEAN CORPUSCULAR HGB 29.4 pg (27.0-31.0); MEAN CORPUSCULAR HGB CONC 32.6 g/dl (33.0-37.0); MEAN PLATELET VOLUME 9.3 fl (9.6-12.3); PLATELET COUNT AUTOMATED 331 10*3/uL (130-400); RED CELL DISTRI WIDTH 14.1 % (0-14.5); WHITE BLOOD COUNT 17.5 10*3/uL (4.8-10.8)
[2018-10-01 07:06] LABS: ALBUMIN 2.1 gm/dl (3.1-4.5); ALKALINE PHOSPHATASE 85 U/L (45-117); BUN 18 mg/dl (7-24); CHLORIDE 106 mmol/L (98-107); CREATININE 0.87 mg/dL (0.55-1.02); POTASSIUM 3.1 mmol/L (3.5-5.1); SGOT/AST 15 IU/L (3-35); SGPT/ALT 18 U/L (12-78); SODIUM 140 mmol/L (136-145); TOTAL PROTEIN 6.2 gm/dL (6.4-8.2)
[2018-10-01 07:36] LABS: PLATELET SUFFICIENCY NORMAL (NORMAL); TOTAL CELLS COUNTED 100 #CELLS
[2018-10-01 07:39] LABS: POLYCHROMASIA SLIGHT; TOXIC GRANULATION SLIGHT
[2018-10-01 08:00] VITALS: BP 112/50
--- NOTE | 2018-10-01 08:43 | NUR ---
24 HR CHART CHECK COMPLETE
[2018-10-01 12:00] VITALS: BP 118/86
[2018-10-01 16:00] VITALS: BP 133/53
--- NOTE | 2018-10-01 19:15 | NUR ---
PAIN BALL DRESSING W/ ADEQUATE MEDICATION AND INTACT TO LOWER ABDOMINAL WALL.
--- NOTE | 2018-10-01 19:53 | NUR ---
MEDICATED WITH IV ZOFRAN ORDERED PER PT REQUEST FOR VOMITTING.
[2018-10-01 20:00] VITALS: BP 149/69
--- NOTE | 2018-10-01 20:32 | NUR ---
MEDICATED WITH IV DILAUDID ORDERED PER PT REQUEST FOR C/O PAIN TO ABDOMEN/BACK RATED 10/10. MEDICATION EFFECTIVE FOR VOMITTING.
--- NOTE | 2018-10-01 22:42 | NUR ---
MEDICATION EFFECTIVE FOR PAIN.
[2018-10-02] VITALS: BP 130/54
--- NOTE | 2018-10-02 01:32 | NUR ---
24 HR chart check completed.
--- NOTE | 2018-10-02 04:00 | NUR ---
Patient resting quietly with no c/o discomfort. Respirations easy and regular. Vital signs stable. No overt distress. JUSTIN TUCKER
[2018-10-02 06:19] LABS: HEMATOCRIT 31.8 % (37.0-47.0); HEMOGLOBIN 9.9 g/dl (12.0-16.0); MEAN CELL VOLUME 90.9 fl (81.0-99.0); MEAN CORPUSCULAR HGB 28.3 pg (27.0-31.0); MEAN CORPUSCULAR HGB CONC 31.1 g/dl (33.0-37.0); MEAN PLATELET VOLUME 9.6 fl (9.6-12.3); PLATELET COUNT AUTOMATED 364 10*3/uL (130-400); RED CELL DISTRI WIDTH 14.3 % (0-14.5); WHITE BLOOD COUNT 12.8 10*3/uL (4.8-10.8)
[2018-10-02 06:50] LABS: ALKALINE PHOSPHATASE 77 U/L (45-117); BUN 18 mg/dl (7-24); CHLORIDE 105 mmol/L (98-107); CREATININE 0.82 mg/dL (0.55-1.02); POTASSIUM 2.9 mmol/L (3.5-5.1); SGOT/AST 15 IU/L (3-35); SGPT/ALT 15 U/L (12-78); SODIUM 139 mmol/L (136-145)
[2018-10-02 07:08] LABS: PLATELET SUFFICIENCY NORMAL (NORMAL); TOTAL CELLS COUNTED 100 #CELLS; TOXIC GRANULATION SLIGHT
--- NOTE | 2018-10-02 07:15 | NUR ---
PT AWAKE. BEDSIDE REPORT RECEIVED FROM JUSTIN POOLE. NO PT COMPLAINTS OR CONCERNS AT THIS TIME. BED LOW
[2018-10-02 08:00] VITALS: BP 146/57
--- NOTE | 2018-10-02 09:47 | NUR ---
PT AWAKE. ROUTINE MEDICATIONS WELL TOLERATED. PT C/O OF LOOSE STOOL X2. PT EDUCATED REGARDING LOOSE STOOL R/T MOSTLY ORAL INTAKE AND SURGICAL PROCEDURE. PT STATED SHE UNDERSTOOD. PT DENIES PAIN AT THIS TIME. CALL CRAWFORD IN REACH.
[2018-10-02 12:00] VITALS: BP 136/86
--- NOTE | 2018-10-02 12:50 | NUR ---
PT CONTINUED C/O DIARRHEA. I CALLED AND SPOKE WITH DR BORRERO REGARDING THIS AND REQUEST A C-DIFF PANEL. DR BORRERO STATED THAT SHE HAD READ THROUGH THE SURGEONS NOTES AND FREQUENT LOOSE STOOLS ARE TO BE EXPECTED AND AT THIS TIME A C-DIFF PANEL IS NOT WARRENTED.
[2018-10-02 16:00] VITALS: BP 131/51
--- NOTE | 2018-10-02 17:00 | NUR ---
PT AWAKE. ROUTINE MEDICATIONS WELL TOLERATED. PT DENIES NAUSEA OR PAIN AT THIS TIME. CALL CRAWFORD IN REACH.
--- NOTE | 2018-10-02 19:31 | NUR ---
PATIENT RESTING IN BED WITH NO NEEDS MADE. DENIES NEEDS OR PAIN AT THIS TIME. BED IN LOWEST POSITION, CALL LIGHT IN REACH
--- NOTE | 2018-10-02 19:56 | NUR ---
24 HR chart check completed.
[2018-10-02 20:00] VITALS: BP 125/64; BP 134/62
--- NOTE | 2018-10-02 20:14 | NUR ---
MEDICATED WITH PRN PERCOCET FOR C/O ABD PAIN
[2018-10-03] VITALS: BP 108/37
--- NOTE | 2018-10-03 01:06 | NUR ---
PATIENT RESTING IN BED WITH EYES CLOSED, RESPS EASY AND REGULAR. BED IN LOWEST POSITION, CALL LIGHT IN REACH
[2018-10-03 08:00] VITALS: BP 123/51
--- NOTE | 2018-10-03 08:57 | NUR ---
PHYSICAL THERAPY Patient has diarrhea and wants therapist to come back later this morning. Will check later this AM. ANGELO POSYE MANAGER COMMERCIAL SALES
--- NOTE | 2018-10-03 09:00 | NUR ---
WOUND CAR IN TO SE PATIENT. WET TO DRY DRESSING APPLIED TO LOWER MID-ABDOMEN WOUND, LUIS ALFREDO LOTA PER ORDERS. PATIENT TOLERATED WELL.
--- NOTE | 2018-10-03 09:31 | NUR ---
JAEL KISER [id number] Please refer to the physician's history and physical for past medical history, comorbid conditions, and allergies. Diagnosis: RENAL INSUFFICIENCY,CHRONIC ABDOMINAL WOUND Romulo Score: 22,LOW OR NO RISK WOUND DESCRIPTIONS: Location of the wound: lower middle abdomen Type of wound: surgical Thickness: Full Size: 0.8cm x 4.8cm x 3.0cm Tunneling: none Undermining: none Sinus Tract: none Presence of Exudate: Serosanguineous Amount: Light Color: Red Odor: None Periwound Skin Appearance: Normal Wound edges: approximated Pain (associated with wound): none at time of assessment How does patient state this happened? pt stated she had surgery with Dr. Lakhani about 1 weeks ago. Patient has 4 intact ester to top middle of abdomen. No drainage noted. Slight redness around staple sites. 5 intact ester to left side of abdomen. Slight redness around staple sites. No drainage noted. And 24 intact ester to midling of abdomen. Slight redness noted around staple sites. No drainage noted. Surface the patient is resting on: Isoflex SKIN PREVENTION RECOMMENDATION: 1. Pressure redistribution support surface as appropriate 2. Elevate heels 3. Remove boots/TEDS every shift and reapply 4. Head of bed 30 degrees as tolerated 5. Assess nutrition and hydration 6. Manage moisture 7. Avoid the use of containment devices while in bed 8. Use absorptive products on surfaces limit layers of linens on bed 9. Turn and reposition every 1-2 hours in bed and every 1 hour in chair as tolerated 10. Weight shifts every 15 minutes while up in chair 11. Offloading with pillows or device to keep heels elevated off bed 12. Monitor skin at least every shift 13. Inspect under medical devices twice a day WOUND TREATMENT RECOMMENDATIONS: Spoke with Dr. Lakhani this morning regarding clarification orders. He stated to cleanse abdomen with nss and apply wet to dry and cover with abd pad and paper tape. Leave staple open to air and change daily and prn. Patient will follow up in the wound care center on 10/06/18 @ [address] Lakhani.
--- NOTE | 2018-10-03 10:00 | NUR ---
OT NOTE Pt was seen this A.m. 1:1 for 20 minute OT session. Upon arrival pt was supine in bed. Pt identified by name and and had no complaints at this time. Educated pt on importance of trialing bed mobility while the head of the bed is not elevated to stimulate home set-up also while using the log roll technique. Pt transferred supine to sit EOB with SBA with good follow through of the log roll technique. Pt completed sit to stand transfer from bed level with SBA and use of w/w for UE support. Functional mobility completed to the bathroom and back with CGA while therapist managed IV pole. Challenged pt's dynamic standing tolerance needed for increased I and enhanced safety in self care tasks and functional transfers, pt was able to maintain F- standing balance. Functional mobility completed back to recliner with CGA and use of w/w where she was left with call light in hand, tray table in place, and body alarm on for safety. Continue with rec D/C plan to home with home health. MINH Riley/Jigna
--- NOTE | 2018-10-03 10:45 | NUR ---
PHYSICAL THERAPY Patient presented to therapy in supine with IV line infusing in R UE and report of the diarrhea being better that she had earlier. Patient agrees to therapy session. Patient was identified by namen and . Patient performed supine to sitting transfer at EOB with MIN A X 1. Patient performed STS transfer from EOB with CGA X 1. Patient ambulated with CGA X 1 for 150' X 1 with no LOB or other difficulty. Patient transferred back to bedside chair with CGA. Patient was left in bedside chair with chair alarm tested and attached to patient, call light within reach, and tray table in front of patient with phone. Patient was 1:1 with this VINE PRUNER for 15 minutes total. EAR VEGA POSEY VINE PRUNER
[2018-10-03] MEDS ORDERED: Percocet 325 MG1 TAB PO (11:11)
--- NOTE | 2018-10-03 11:15 | NUR ---
case management was informed that patient would be going home, case management will notify [facility] that she is going home
[2018-10-03 12:00] VITALS: BP 137/53
--- NOTE | 2018-10-03 15:40 | NUR ---
Discharge instructions reviewed with patient. Patient receptive and verbalizes understanding. Follow-up care arranged. Written instructions given to patient. WOUND CARE EDUCATION PROVIDED. DISCHARGE WOUND PHOTOS TAKEN. IV CATH REMOVED. YARELIS YBARRA
--- NOTE | 2018-10-04 07:51 | NUR ---
PHYSICAL THERAPY CO-SIGN I approve of the Phyical Therapy notes written above. RODRÍGUEZ PAREDES PT
--- NOTE | 2018-10-04 08:02 | NUR ---
OCCUPATIONAL THERAPY CO-SIGN I approve of the Occupational Therapy notes written above. EDER CALLAWAY OTR/Jigna
[2018-11-06] MEDS ORDERED: K-TAB20 MEQ PO (04:17)
[2018-11-11] MEDS ORDERED: VITAMIN D35000 UNIT PO (20:55)
[2018-11-16] MEDS ORDERED: VANCOMYCIN250 MG/2.5 PO (12:45)
[2018-11-16] MEDS ORDERED: LACTINEX 0.2 MG1 TAB PO (12:45)
[2018-11-16] MEDS ORDERED: ZOFRAN 4 MG ED2 TAB PO (12:45)
== END 2018-10-03 15:40 | disposition home health service (06) | DRG 329 ==
LOC: ED 14:55 → 4E 15:58 → EDHOLD 15:58 → 4E 16:32
PROVIDERS: Internal Medicine; Internal Medicine Nephrology; Nurse Practitioner Family; Student in an Organized Health Care Education/Training Program; ADMIT Internal Medicine
PROC: 0DJD8ZZ Inspection of Lower Intestinal Tract, Via Natural or Artificial Opening Endoscopic (ICD-10-PCS; principal; 2018-09-20)
PROC: 0DB80ZZ Excision of Small Intestine, Open Approach (ICD-10-PCS; 2018-09-23)
PROC: 0JB80ZZ Excision of Abdomen Subcutaneous Tissue and Fascia, Open Approach (ICD-10-PCS; 2018-09-23)
DX: K63.2 Fistula of intestine (principal); E43 Unspecified severe protein-calorie malnutrition; I50.32 Chronic diastolic (congestive) heart failure; I13.0 Hypertensive heart and chronic kidney disease with heart failure and stage 1 through stage 4 chronic kidney disease, or unspecified chronic kidney disease; C17.9 Malignant neoplasm of small intestine, unspecified; K56.7 Ileus, unspecified; S31.109A Unspecified open wound of abdominal wall, unspecified quadrant without penetration into peritoneal cavity, initial encounter; N18.3 Chronic kidney disease, stage 3 (moderate); K57.90 Diverticulosis of intestine, part unspecified, without perforation or abscess without bleeding; E55.9 Vitamin D deficiency, unspecified; E78.5 Hyperlipidemia, unspecified; L89.151 Pressure ulcer of sacral region, stage 1; E53.8 Deficiency of other specified B group vitamins; K64.8 Other hemorrhoids; D63.1 Anemia in chronic kidney disease; M54.9 Dorsalgia, unspecified; K21.9 Gastro-esophageal reflux disease without esophagitis; E66.09 Other obesity due to excess calories; R73.03 Prediabetes; X58.XXXA Exposure to other specified factors, initial encounter; Y93.89 Activity, other specified; Y92.89 Other specified places as the place of occurrence of the external cause; Y99.8 Other external cause status; Z98.51 Tubal ligation status; Z88.0 Allergy status to penicillin; Z88.8 Allergy status to other drugs, medicaments and biological substances; Z88.1 Allergy status to other antibiotic agents; Z90.49 Acquired absence of other specified parts of digestive tract; Z87.891 Personal history of nicotine dependence; Z82.49 Family history of ischemic heart disease and other diseases of the circulatory system; Z83.3 Family history of diabetes mellitus; Z79.899 Other long term (current) drug therapy; Z68.30 Body mass index [BMI] 30.0-30.9, adult

== ENCOUNTER → 2018-10-13 | Outpatient (CLI) | payer OTHER ==
[~2018-10-13] MED LIST changes: +AMLODIPINE BESYL5 MG PO; +ATENOLOL50 M1 PO; +K-TAB20 MEQ PO; +LACTINEX 0.2 MG1 TAB PO; +OMNICEF300 MG PO; +POLY-VITAMIN1 EACH PO; +Percocet 325 MG1 TAB PO; +TENORMIN50 MG PO; +VANCOCIN125 M1 PO; +VANCOMYCIN250 MG/2.5 PO; +ZOFRAN 4 MG ED2 TAB PO
[2018-10-13 12:31] LABS: BUN 9 mg/dl (7-24); CHLORIDE 110 mmol/L (98-107); CREATININE 0.83 mg/dL (0.55-1.02); POTASSIUM 3.2 mmol/L (3.5-5.1); SODIUM 143 mmol/L (136-145)
== END | disposition home or self-care (01) ==
LOC: RESCLI 02:56
PROVIDERS: Internal Medicine
DX: I12.9 Hypertensive chronic kidney disease with stage 1 through stage 4 chronic kidney disease, or unspecified chronic kidney disease (principal); N18.3 Chronic kidney disease, stage 3 (moderate); E87.6 Hypokalemia; E55.9 Vitamin D deficiency, unspecified; K21.9 Gastro-esophageal reflux disease without esophagitis; E53.8 Deficiency of other specified B group vitamins; E66.9 Obesity, unspecified; G62.9 Polyneuropathy, unspecified; Z98.890 Other specified postprocedural states; Z79.899 Other long term (current) drug therapy; Z88.2 Allergy status to sulfonamides; Z88.0 Allergy status to penicillin

== ENCOUNTER 2018-10-27 12:20 | Inpatient (IN) | payer OTHER ==
[~2018-10-27] VITALS: Ht 172.7 cm; Wt 79.8 kg
[2018-10-27] VITALS (7 sets, daily range): BP systolic 94–158; BP diastolic 52–72
[~2018-10-27 12:20] MED LIST changes: -K-TAB20 MEQ PO; -LACTINEX 0.2 MG1 TAB PO; -OMNICEF300 MG PO; -POLY-VITAMIN1 EACH PO; -TENORMIN50 MG PO; -VANCOCIN125 M1 PO; -VANCOMYCIN250 MG/2.5 PO; -ZOFRAN 4 MG ED2 TAB PO
[2018-10-27 13:01] LABS: BASO % 0.3 % (0.0-1.0); EOS # 0.1 10*3/uL (0.0-0.4); EOS % 0.9 % (1.0-4.0); HEMATOCRIT 31.6 % (37.0-47.0); HEMOGLOBIN 10.2 g/dl (12.0-16.0); LYMPH # 1.4 10*3/uL (1.3-4.4); LYMPH % 19.9 % (27.0-41.0); MEAN CORPUSCULAR HGB 28.4 pg (27.0-31.0); MEAN CORPUSCULAR HGB CONC 32.3 g/dl (33.0-37.0); MEAN PLATELET VOLUME 8.8 fl (9.6-12.3); MONO # 0.7 10*3/uL (0.1-1.0); MONO % 9.6 % (3.0-9.0); NEUT # 4.8 10*3/uL (2.3-7.9); NEUT % 68.7 % (47.0-73.0); PLATELET COUNT AUTOMATED 254 10*3/uL (130-400); RED BLOOD COUNT 3.59 10*6/uL (4.10-5.10); RED CELL DISTRI WIDTH 14.7 % (0-14.5)
[2018-10-27 13:34] LABS: ALKALINE PHOSPHATASE 98 U/L (45-117); BUN 8 mg/dl (7-24); CHLORIDE 101 mmol/L (98-107); CREATININE 0.86 mg/dL (0.55-1.02); SGOT/AST 13 IU/L (3-35); SGPT/ALT 9 U/L (12-78); SODIUM 137 mmol/L (136-145); TOTAL PROTEIN 6.1 gm/dL (6.4-8.2)
[2018-10-27 13:36] LABS: POTASSIUM 2.4 mmol/L (3.5-5.1)
--- NOTE | 2018-10-27 13:37 | NUR ---
NOTIFIED BY LAB PTS POTASSIUM 2.4. DR LEHMAN NOTIFIED.
--- NOTE | 2018-10-27 13:47 | NUR ---
PT EATING BAKED POTATO THST WAS BRAUGHT BY DAUGHTER. PT DENIES NAUSEA AT THIS TIME.
[2018-10-27 14:13] LABS: BILIRUBIN NEGATIVE (NEGATIVE); BLOOD 3+ (NEGATIVE); CLARITY CLOUDY (CLEAR); COLOR YELLOW (YELLOW); GLUCOSE NEGATIVE (NEGATIVE); KETONE TRACE (NEGATIVE); LEUKO ESTERASE 2+ (NEGATIVE); NITRITE POSITIVE (NEGATIVE); PH 5.5 (5.0-9.0); UROBILINOGEN 0.2 E.U./dl (0.2-1.0)
[2018-10-27 14:26] LABS: BACTERIA 2+; RBC TNTC rbc/hpf (0-2); WBC TNTC wbc/hpf (0-5)
--- NOTE | 2018-10-27 18:30 | NUR ---
Time: 1829 A 73 year old FEMALE admitted to 5E under services of JOSE G PARRA DO. Pt. arrived via bed from ER. Chief complaint: UTI AMD INABILITY TO AMBULATE.. JAMAR SUTHERLAND
--- NOTE | 2018-10-27 19:02 | NUR ---
PATIENT RESTING IN BED AT THIS TIME. DENIES ANY COMPLAINTS OR NEEDS. BED IS IN LOWEST POSITION WITH WHEELS LOCKED. CALL LIGHT IS WITHIN REACH. ENCOURAGED TO USE CALL LIGHT FOR NEEDS. WILL CONTINUE TO MONITOR.
[2018-10-27 19:07] LABS: BUN 8 mg/dl (7-24); CHLORIDE 104 mmol/L (98-107); CREATININE 0.84 mg/dL (0.55-1.02); POTASSIUM 3.3 mmol/L (3.5-5.1); SODIUM 139 mmol/L (136-145)
--- NOTE | 2018-10-27 19:36 | NUR ---
MEDS RECONCILED AT BEDSIDE WITH PT AND MED LIST ON PT'S PHONE.
--- NOTE | 2018-10-27 19:39 | NUR ---
NOTIFIED DR WHITTAKER OF ABDOMINAL WOUND AND NEED FOR ORDERS.
--- NOTE | 2018-10-28 05:57 | NUR ---
DR SEBASTIAN NOTIFIED OF CONSULT. WILL SEE PATIENT TODAY.
[2018-10-28 06:24] LABS: BASO % 0.5 % (0.0-1.0); EOS # 0.1 10*3/uL (0.0-0.4); EOS % 2.5 % (1.0-4.0); HEMOGLOBIN 8.9 g/dl (12.0-16.0); LYMPH # 1.3 10*3/uL (1.3-4.4); LYMPH % 29.6 % (27.0-41.0); MEAN CELL VOLUME 89.5 fl (81.0-99.0); MEAN CORPUSCULAR HGB 28.4 pg (27.0-31.0); MEAN CORPUSCULAR HGB CONC 31.8 g/dl (33.0-37.0); MEAN PLATELET VOLUME 9.1 fl (9.6-12.3); MONO # 0.5 10*3/uL (0.1-1.0); MONO % 10.6 % (3.0-9.0); NEUT # 2.5 10*3/uL (2.3-7.9); NEUT % 55.9 % (47.0-73.0); PLATELET COUNT AUTOMATED 245 10*3/uL (130-400); RED BLOOD COUNT 3.13 10*6/uL (4.10-5.10); WHITE BLOOD COUNT 4.4 10*3/uL (4.8-10.8)
--- NOTE | 2018-10-28 06:39 | NUR ---
JAEL KISER [id number] Please refer to the physician's history and physical for past medical history, comorbid conditions, and allergies. Diagnosis: UTI UNABLE TO AMBULATE Romulo Score: 19,LOW OR NO RISK WOUND DESCRIPTIONS: Location of the wound: lower middle of abdomen Type of wound: surgical Thickness: Full Size: 1.2cm x 3.0cm x 2.4cm Tunneling: none Undermining: none Sinus Tract: none Presence of Exudate: Serosanguineous Amount: Moderate Color: Red Odor: None Periwound Skin Appearance: Normal Wound edges: approximated Pain (associated with wound): tender to touch on left side How does patient state this happened? pt stated Dr. Lakhani performed surgery on 09/23/18 and that she follows up in the wound care clinic. Surface the patient is resting on: Isoflex SKIN PREVENTION RECOMMENDATION: 1. Pressure redistribution support surface as appropriate 2. Elevate heels 3. Remove boots/TEDS every shift and reapply 4. Head of bed 30 degrees as tolerated 5. Assess nutrition and hydration 6. Manage moisture 7. Avoid the use of containment devices while in bed 8. Use absorptive products on surfaces limit layers of linens on bed 9. Turn and reposition every 1-2 hours in bed and every 1 hour in chair as tolerated 10. Weight shifts every 15 minutes while up in chair 11. Offloading with pillows or device to keep heels elevated off bed 12. Monitor skin at least every shift 13. Inspect under medical devices twice a day WOUND TREATMENT RECOMMENDATIONS: Full thickness guidelines: Cleanse lower middle of abdomen with nss and apply sureprep around the lightly pack with maxorb II then cover with 4x4 then abd pad then apply paper tape. Patient will keep follow up appointment in the wound care center next with Dr. Lakhani.
[2018-10-28 06:46] LABS: ALBUMIN 1.8 gm/dl (3.1-4.5); ALKALINE PHOSPHATASE 87 U/L (45-117); BUN 7 mg/dl (7-24); CHLORIDE 108 mmol/L (98-107); CHOLESTEROL 113 mg/dL (<200); CREATININE 0.71 mg/dL (0.55-1.02); FREE T4 1.39 ng/dl (0.76-1.46); HDL CHOLESTEROL 22 mg/dl (40-60); LDL CHOLESTEROL 53 mg/dL (9-159); PHOSPHOROUS 1.7 mg/dL (2.5-4.9); SGOT/AST 13 IU/L (3-35); SGPT/ALT 8 U/L (12-78); SODIUM 141 mmol/L (136-145); TOTAL PROTEIN 5.5 gm/dL (6.4-8.2); TRIGLYCERIDES 190 mg/dl (<150); VLDL CHOLESTEROL 38 mg/dL (6-40)
[2018-10-28 06:51] LABS: THYROID STIM HORMONE (HS) 0.675 uIU/ml (0.358-4.75)
[2018-10-28 07:04] LABS: ACT PARTIAL THROMBO TIME 23.1 SECONDS (20.8-31.5)
[2018-10-28 07:30] LABS: VITAMIN D, 25-HYDROXY 81.3 ng/mL (30-100)
--- NOTE | 2018-10-28 09:40 | NUR ---
Dr. Deyvi Conner notified of wound care recommendations.
--- NOTE | 2018-10-28 11:22 | NUR ---
Occupational Therapy evaluation completed on 5 with full eval to follow. Precautions include SOB w/ min exertion, fall risk, IV UE. Recommend OT per POC and home w/ upon d/c with home health as indicated at d/c. THank you for this referral. Sejal Ogden OTr/L
--- NOTE | 2018-10-28 11:50 | NUR ---
PHYSICAL THERAPY Patient evaluated on 5, full evaluation to follow. Continue with PT as per plan of care with fall, WOUNDS and acute debility precautions. Refuses SNF. PAtient is moderate complexity via chart review, tests and evaluation: 13538. Thank you for this referral. Norma Martin,PT
[2018-10-28 12:00] VITALS: BP 118/57
--- NOTE | 2018-10-28 12:15 | NUR ---
Branner Machine Tender in to talk to patient. Patient states lives at HOME with DAUGHTER. There are NO steps in the home. Physician: [facility]acy: [facility] Home health services: [facility] Patient's level of ADLs: MODERATE ASSIST Patient has working utilities: YES DME: [facility] Follow-up physician's appointment after d/c: WILL BE MADE BY HOSPITALIST NURSE DIRECTOR ON DISCHARGE Does patient want to access PORTAL?: NO Discharge plan PT STATES SHE IS STAYING WITH HER DAUGHTER RIGHT NOW, BUT PLANS ON GOING HOME NEXT WEEK. STATES SHE HAS [facility]. WILL RESUME CARE ON DISCHARGE. WILL CONTINUE TO FOLLOW. STATES ONE OF HER DAUGHTERS WILL TAKE HER HOME. . OMAYRA FLORES
--- NOTE | 2018-10-28 15:04 | NUR ---
REFERAL FAXED TO [facility].
[2018-10-28 16:00] VITALS: BP 136/61
[2018-10-28 20:00] VITALS: BP 128/55
[2018-10-29] VITALS: BP 128/47
[2018-10-29 06:43] LABS: BASO % 0.5 % (0.0-1.0); EOS # 0.2 10*3/uL (0.0-0.4); EOS % 4.6 % (1.0-4.0); HEMATOCRIT 27.2 % (37.0-47.0); HEMOGLOBIN 8.3 g/dl (12.0-16.0); LYMPH # 1.6 10*3/uL (1.3-4.4); LYMPH % 37.7 % (27.0-41.0); MEAN CELL VOLUME 91.3 fl (81.0-99.0); MEAN CORPUSCULAR HGB 27.9 pg (27.0-31.0); MEAN CORPUSCULAR HGB CONC 30.5 g/dl (33.0-37.0); MEAN PLATELET VOLUME 8.8 fl (9.6-12.3); MONO # 0.4 10*3/uL (0.1-1.0); MONO % 8.4 % (3.0-9.0); NEUT % 47.1 % (47.0-73.0); PLATELET COUNT AUTOMATED 206 10*3/uL (130-400); RED BLOOD COUNT 2.98 10*6/uL (4.10-5.10); RED CELL DISTRI WIDTH 14.9 % (0-14.5); WHITE BLOOD COUNT 4.2 10*3/uL (4.8-10.8)
[2018-10-29 07:06] LABS: BUN 3 mg/dl (7-24); CHLORIDE 109 mmol/L (98-107); CREATININE 0.68 mg/dL (0.55-1.02); PHOSPHOROUS 2.6 mg/dL (2.5-4.9); POTASSIUM 3.4 mmol/L (3.5-5.1); SODIUM 143 mmol/L (136-145)
[2018-10-29 08:00] VITALS: BP 150/69
[2018-10-29 16:28] VITALS: BP 150/64
[2018-10-29 20:26] VITALS: BP 136/63
[2018-10-30] VITALS: BP 128/56
[2018-10-30 06:07] LABS: BASO % 0.3 % (0.0-1.0); EOS # 0.1 10*3/uL (0.0-0.4); EOS % 1.8 % (1.0-4.0); HEMATOCRIT 27.1 % (37.0-47.0); HEMOGLOBIN 8.7 g/dl (12.0-16.0); LYMPH # 1.5 10*3/uL (1.3-4.4); LYMPH % 23.6 % (27.0-41.0); MEAN CELL VOLUME 90.3 fl (81.0-99.0); MEAN CORPUSCULAR HGB CONC 32.1 g/dl (33.0-37.0); MEAN PLATELET VOLUME 8.9 fl (9.6-12.3); MONO # 0.5 10*3/uL (0.1-1.0); MONO % 7.9 % (3.0-9.0); NEUT % 65.3 % (47.0-73.0); PLATELET COUNT AUTOMATED 212 10*3/uL (130-400); RED CELL DISTRI WIDTH 14.9 % (0-14.5); WHITE BLOOD COUNT 6.2 10*3/uL (4.8-10.8)
[2018-10-30 06:26] LABS: BUN 2 mg/dl (7-24); CHLORIDE 110 mmol/L (98-107); CREATININE 0.69 mg/dL (0.55-1.02); PHOSPHOROUS 2.9 mg/dL (2.5-4.9); POTASSIUM 3.7 mmol/L (3.5-5.1); SODIUM 142 mmol/L (136-145)
[2018-10-30 08:00] VITALS: BP 118/45
--- NOTE | 2018-10-30 09:16 | NUR ---
C/O NAUSEA/VOMITING. ZOFRAN GIVEN AT THIS TIME. WILL CONT TO MONITOR. CALL LIGHT IN REACH.
--- NOTE | 2018-10-30 10:16 | NUR ---
YAZAN DRISCOLL AT THIS TIME. WILL CONT TO MONITOR. CALL LIGHT IN REACH.
[2018-10-30 12:00] VITALS: BP 125/62
[2018-10-30 16:00] VITALS: BP 132/61
--- NOTE | 2018-10-30 16:24 | NUR ---
C/O NAUSEA, IV ZOFRAN GIVEN AT THIS TIME. WILL CONT TO MONITOR. CALL LIGHT IN REACH.
--- NOTE | 2018-10-30 17:24 | NUR ---
IV YAZAN EFF. WILL CONT TO MONITOR. CALL LIGHT IN REACH.
[2018-10-30 20:00] VITALS: BP 128/55
--- NOTE | 2018-10-30 20:44 | NUR ---
PRN TYLENOL GIVEN AT THIS TIME FOR COMPLAINTS OF HEADACHE AND MILD BODY ACHES. WILL EVALUATE EFFECTIVENESS.
--- NOTE | 2018-10-30 22:01 | NUR ---
PATIENT STATES TYLENOL EFFECTIVE FOR PAIN RELIEF. NO FURTHER COMPLAINTS AT THIS TIME.
[2018-10-31] VITALS: BP 114/41
--- NOTE | 2018-10-31 03:16 | NUR ---
RESTING IN BED WITH EYES CLOSED. RESPIRATIONS ARE EASY AND REGULAR. NO DISTRESS IS NOTED. CALL LIGHT IS WITHIN REACH. WILL CONTINUE TO MONITOR.
[2018-10-31 06:55] LABS: BASO % 0.2 % (0.0-1.0); EOS # 0.2 10*3/uL (0.0-0.4); HEMATOCRIT 29.3 % (37.0-47.0); LYMPH # 1.1 10*3/uL (1.3-4.4); LYMPH % 19.7 % (27.0-41.0); MEAN CELL VOLUME 90.2 fl (81.0-99.0); MEAN CORPUSCULAR HGB 27.7 pg (27.0-31.0); MEAN CORPUSCULAR HGB CONC 30.7 g/dl (33.0-37.0); MONO # 0.4 10*3/uL (0.1-1.0); MONO % 7.7 % (3.0-9.0); NEUT # 3.8 10*3/uL (2.3-7.9); NEUT % 68.5 % (47.0-73.0); PLATELET COUNT AUTOMATED 236 10*3/uL (130-400); RED BLOOD COUNT 3.25 10*6/uL (4.10-5.10); RED CELL DISTRI WIDTH 14.9 % (0-14.5); WHITE BLOOD COUNT 5.6 10*3/uL (4.8-10.8)
--- NOTE | 2018-10-31 07:00 | NUR ---
PT AWAKE. BEDSIDE REPORT RECEIVED FROM JAHAIRA POOLE. NO PT QUESTIONS/CONCERNS AT THIS TIME.
[2018-10-31 07:19] LABS: BUN 2 mg/dl (7-24); CHLORIDE 107 mmol/L (98-107); CREATININE 0.71 mg/dL (0.55-1.02); SODIUM 139 mmol/L (136-145)
[2018-10-31 08:00] VITALS: BP 116/50
--- NOTE | 2018-10-31 08:15 | NUR ---
PHYSICAL THERAPY Patient seen this am 1:1 for therapy visit and was supine in bed upon therapist arrival. Patient voices no c/o's pain this morning and transfers supine to sit EOB with SBA x 1. Patient performed seated B LE therex, all planes, x 20 reps each to increase LE strength / ROM. Patient then transfers sit to stand CGA, ambulating 125'x 1 with wh walker, CGA, demonstrating slow bryn, mild fatigue and no LOB. Patient was very pleasant and talkative, returning to supine in bed awaiting breakfast. Patient remained with call light, tray table and telephone. Will continue per POC as tolerated, total treatment time 24 minutes. Darrion Miller, MANAGER RESPIRATORY CARE
--- NOTE | 2018-10-31 10:08 | NUR ---
24 HR CHART CHECK COMPLETE
--- NOTE | 2018-10-31 10:25 | NUR ---
OT NOTE Pt was seen this A.M. 1:1 for 27 minute OT session. Upon arrival pt was supine in bed. Pt identified by name and and had no complaints at this time. Pt transferred supine to sit EOB with SBA. Multiple sit to stand transfers completed from bed level with CGA. Challenged pt's static standing tolerance needed for increased I in self care tasks and functional transfers, pt was able to tolerate aprox 30 sec, 1 minute, and 2 minutes before sitting due to fatigue. Educated pt and provided pt with handouts for energy conservation, work simplification, and breathing techniques for increased I and enhanced safety in ADL/IADL tasks. Pt then completed functional mobility into the bathroom with CGA CENTRAL AISLE CASHIER due to pt declining need for the walker. Pt completed toileting task and stood sink side while washing her hands with fair carry over of energy conservation techniques. Pt transferred back into bed sit to supine with SBA. There she was left with call light in hand, tray table in place, and phone in reach. Continue with rec D/C plan to home. MINH Riley/Jigna
[2018-10-31 12:00] VITALS: BP 116/47
--- NOTE | 2018-10-31 13:06 | NUR ---
LAB CALLED. PTS C-DIFF POSITIVE. YORDY HERRERA AND MARCIE PINK NOTIFIED. PT PLACED IN CONTACT ISOLATION
[2018-10-31 16:00] VITALS: BP 119/48
[2018-10-31 20:00] VITALS: BP 114/45
[2018-11-01] VITALS: BP 132/56
--- NOTE | 2018-11-01 06:55 | NUR ---
DRESSING TO ABDOMINAL WOUND CLEANSED AND NEW DRESSING APPLIED AT THIS TIME PER WOUND CARE ORDERS. PATIENT TOLERATED WELL. NO NEEDS OR COMPLAINTS AT THIS TIME.
[2018-11-01 08:00] VITALS: BP 119/70
--- NOTE | 2018-11-01 10:39 | NUR ---
PATIENT SCHEDULED TO SEE DR. SEBASTIAN 11/03/18 AT 1030 IN THE WOUND CARE CLINIC.
--- NOTE | 2018-11-01 10:42 | NUR ---
PT CONTINUES TO STATE SHE IS GOING HOME WITH DAUGHTER THEN BACK TO HER OWN HOUSE EVENTIALLY. WILL CONTINUE TO FOLLOW.
--- NOTE | 2018-11-01 11:05 | NUR ---
PHYSICAL THERAPY Patient was receiving patient care this am when first approached for therapy visit and sound asleep just now upon second attempt. Will continue per POC with all goals as tolerated. Darrion Miller, REAL ESTATE SALESPERSON
--- NOTE | 2018-11-01 11:50 | NUR ---
OT NOTE Pt was seen this A.M. 1:1 for 20 minute OT session. Upon arrival pt was supine in bed. Pt identified by name and and had complaints of stomach pain. Pt's nurse notified. Pt transferred supine to sit EOB with SBA. While sitting EOB requested for pt to verbalize energy conservation techniques previously educated on. Pt was able to state 3/3. Sit to stand completed from bed level with CGA followed by functional mobility into the bathroom with SBA. There she transferred on to standard commode with SBA and use of grab bar. Clothing management and toilet hygiene completed with SBA. Pt then stood sink side while washing her hands and face with SBA. Therapist noticed that pt began to oleary towards the end, re educated pt on importnace and benefits of sitting during a task. Pt then returned to the EOB for a seated rest break. Challenged pt's static standing tolerance needed for increased I in self care tasks and functional transfers, pt was able to tolerate aprox 1-2 minutes at a time before sitting due to fatigue. Pt was left supine in bed with call light in hand, tray table in place, and phone in reach. Continue with rec /C plan to home. MINH Riley/Jigna
[2018-11-01 12:00] VITALS: BP 125/59
--- NOTE | 2018-11-01 13:46 | NUR ---
SPOKE TO PT REGARDING DISCHARGE PLANS. SHE IS TEARFUL AND STATES SHE HAS NO PLACE TO GO ON DISCHARGE SHE IS FEARFUL OF GIVING C-DIFF TO [facility]. PT IS NOW AGREEABLE TO SNF. RAFAEL MAJOR INFORMED.
--- NOTE | 2018-11-01 15:46 | NUR ---
Referral for Occupational Therapy received this date. Patient already on OT caseload and being seen for treatment. Discharge this duplicate order. Sejal Ogden OTR/L
[2018-11-01 16:00] VITALS: BP 143/57
--- NOTE | 2018-11-01 19:10 | NUR ---
PT ASLEEP. REPORT RECIEVED FROM ZULEMA MILTON. NO S/S OF DISTRESS NOTED AT THIS TIME. RESPIRATIONS ARE EASY AND NONLABORED. CALL LIGHT WITHIN REACH, WILL CONTINUE TO MONITOR.
[2018-11-01 20:00] VITALS: BP 140/56
[2018-11-02] VITALS: BP 130/48
[2018-11-02 08:00] VITALS: BP 104/50
--- NOTE | 2018-11-02 09:15 | NUR ---
OT NOTE Pt was seen this A.M. 1:1 for 30 minute OT session. Upon arrival pt was supine in bed. Pt identified by name and and had complaints of increased fatigue and generalized weakness. Pt transferred supine to sit EOB with SBA. While sitting EOB pt donned B socks with SBA. Pt was presented with task of completing grooming activity. Pt performed with good carry over of energy conservation techniques previously educated on. Pt completed functional mobility around the room while gathering supplies and items needed for grooming task. Pt was able to verbalize that she was doing that to keep from going in and out of the bathroom multiple trips. Functional mobility completed into the bathroom with SBA. There she transferred on/off standard commode and completed toileting task with supervision. Pt performed with good breathing technique of exhaling with strenuous motions. Pt then pulled a chair over to sink which she sat in while completing UB and LB bathing, hair care, and oral care. Overall pt performed with good carry over of energy conservation techniques throughout entire session. Pt transferred back into bed sit to supine with SBA with reports of quick onset of fatigue. There she was left supine in bed with call light in reach, tray table in place, and phone in reach. Continue with rec D/C plan to home. MINH Riley/Jigna
--- NOTE | 2018-11-02 10:42 | NUR ---
PHYSICAL THERAPY Patient was approached for therapy session this AM and patient reported nausea and not feeling well. She said she cannot do therapy this morning. Patient wants therapy to come back this afternoon. Will check back with patient this afternoon. ANGELO POSEY TOWER AIR TRAFFIC CONTROL SPECIALIST
--- NOTE | 2018-11-02 11:16 | NUR ---
RECIEVED A CALL FROM DAUGHTER LAST NIGHT WANTING TO KNOW WHAT OTHER FACILITIES HER MOTHER COULD GO TO OTHER [facility]. GAVE HER NAMES AND SHE WAS RESERCHING WHICH FACILITY THEY WANTED. IN TO TALK TO PT THIS AM AND ASK HER IF SHE HAD SPOKEN TO HER DAUGHTER AND IF THEY HAD DECIDED. PT STATES MY OTHER DAUGHTER IS CALLING TODAY AND I AM NOT SAYING YES OR NO, TURNS HER HEAD AND CLOSES HER EYES AND WILL NOT TALK ANYMORE TO ME. WILL CONTINUE TO FOLLOW.
--- NOTE | 2018-11-02 11:35 | NUR ---
PT C/O NAUSEA AT THIS TIME. ZOFRAN 4MG GIVEN PER PRN ORDER.
--- NOTE | 2018-11-02 12:00 | NUR ---
RECIEVED CALL FROM PT DAUGHTER WHO STATES SHE FILED AN APPEAL WITH MEDICARE AND THEY SAID PT CAN STAY HERE UNTIL APPEAL IS COMPLETED.
--- NOTE | 2018-11-02 12:35 | NUR ---
Received fax for requested documents for [facility] to review. Faxed all documents requested, waiting for [employer] decision.
--- NOTE | 2018-11-02 15:18 | NUR ---
PHYSICAL THERAPY Patient was approached by this OUTDOOR FITNESS TRAINER for PM treatment and patient was still experiencing nausea and was weak, tired and wanted to continue resting. Patient therefore declined therapy this afternoon due to not feeling well. Will check back with patient tommorrow morning. ANGELO POSEY OUTDOOR FITNESS TRAINER
[2018-11-02 16:00] VITALS: BP 131/68
--- NOTE | 2018-11-02 18:21 | NUR ---
PT C/O NAUSEA. ZOFRAN 4 MG VIA IV GIVEN AT THIS TIME. WILL MONITOR FOR EFFECTIVENESS. CALL LIGHT IN REACH.
--- NOTE | 2018-11-02 19:00 | NUR ---
PT ASLEEP AT THIS TIME. REPORT RECIEVED FROM ZULEMA AGUIRRE. NOT S/S OF DISTRESS NOTED. RESPS EASY, NONLABORED. WILL CONTINUE TO MONITOR.
--- NOTE | 2018-11-02 19:21 | NUR ---
ZOFRAN EFFECTIVE PER PT.
[2018-11-02 20:00] VITALS: BP 157/42
[2018-11-03] VITALS: BP 132/55
[2018-11-03 07:09] LABS: BASO % 0.1 % (0.0-1.0); EOS % 0.3 % (1.0-4.0); HEMOGLOBIN 9.5 g/dl (12.0-16.0); LYMPH # 1.4 10*3/uL (1.3-4.4); LYMPH % 16.2 % (27.0-41.0); MEAN CELL VOLUME 90.9 fl (81.0-99.0); MEAN CORPUSCULAR HGB 27.9 pg (27.0-31.0); MEAN CORPUSCULAR HGB CONC 30.6 g/dl (33.0-37.0); MEAN PLATELET VOLUME 9.6 fl (9.6-12.3); MONO # 0.8 10*3/uL (0.1-1.0); MONO % 9.6 % (3.0-9.0); NEUT # 6.3 10*3/uL (2.3-7.9); PLATELET COUNT AUTOMATED 216 10*3/uL (130-400); RED BLOOD COUNT 3.41 10*6/uL (4.10-5.10); RED CELL DISTRI WIDTH 15.2 % (0-14.5); WHITE BLOOD COUNT 8.6 10*3/uL (4.8-10.8)
[2018-11-03 07:39] LABS: CREATININE 0.79 mg/dL (0.55-1.02)
[2018-11-03 08:00] VITALS: BP 118/45
--- NOTE | 2018-11-03 09:04 | NUR ---
Patients insurance denied alf stay. Notified hospitalists office.
--- NOTE | 2018-11-03 10:00 | NUR ---
OT NOTE Pt was seen this A.M. 1:1 for 20 minute OT session. Upon arrival pt was supine in bed. Pt identified by name and and had complaints of increased fatigue and generalized weakness. Pt transferred supine to sit EOB with SBA. Functional mobility completed into the bathroom with CGA. There she transferred on/off standard commode with SBA for safety. Pt then stood sink side while washing her hands with SBA. She returned to the EOB for a seated rest break and reported that she felt SOB. Educated pt on pursed lip breathing, with visual and verbal prompts pt had good carry over and had reports of feeling better. Then challenged pt's static standing tolerance needed for increased I in self care tasks and functinal transfers and pt was able to tolerate aprox 35 sec, 40 sec, and 60 seconds before sitting due to fatigue. Pt's breakfast tray arrived resulting in pt transferring back into bed sit to supine with SBA. There she was left with call light in hand, tray table in place, and phone in reach. Continue with POC as able. MINH Riley/Jigna
--- NOTE | 2018-11-03 10:40 | NUR ---
PHYSICAL THERAPY Patient was resting comfortably supine in bed this am upon therapist arrival and reports feeling very tired / weak, with increased Nausea. Patient states she started feeling worse following completion of earlier OT treatment. Patient requested to attempt PT treatment this pm in hopes of feeling a little bit better. Will continue per POC as able. Darrion Miller, STOCK ANALYST
--- NOTE | 2018-11-03 14:30 | NUR ---
PHYSICAL THERAPY Patient was approached several time this pm for therapy visit and was sound asleep both attempts. Will continue per POC as able with all therapy goals. Darrion Miller, OVEN OPERATOR
--- NOTE | 2018-11-03 15:04 | NUR ---
Peer to peer set up for denied SNF stay with [facility] at [phone]. Message left with Dr. Conner's cell phone number of [phone] for peer to peer.
[2018-11-03 16:00] VITALS: BP 137/53
[2018-11-03 20:00] VITALS: BP 112/69
--- NOTE | 2018-11-03 20:33 | NUR ---
PATIENT HAD SMALL EMESIS AT THIS TIME. BRIGHT GREEN IN COLOR. ZOFRAN GIVEN PER ORDER. WILL MONITOR
[2018-11-04] VITALS: BP 116/49
--- NOTE | 2018-11-04 00:49 | NUR ---
24 HR chart check completed.
[2018-11-04 06:39] LABS: BUN 7 mg/dl (7-24); CHLORIDE 100 mmol/L (98-107); CREATININE 0.66 mg/dL (0.55-1.02); PHOSPHOROUS 2.3 mg/dL (2.5-4.9); POTASSIUM 3.1 mmol/L (3.5-5.1); SODIUM 136 mmol/L (136-145)
[2018-11-04 08:00] VITALS: BP 130/56
--- NOTE | 2018-11-04 09:35 | NUR ---
Peer to peer upheld decision to deny skilled stay. Contacted [facility] regarding family asking for reconsideration for discharge. [employer] stating that the reconsideration could take up to 3 days and they do work through the weekends. ( _[id number]) They also stated if the reconsideration is denied, patients last coverage will end at 12 noon today 11/05/18, from that point on patient will be responsible for the bill.
--- NOTE | 2018-11-04 10:20 | NUR ---
PHYSICAL THERAPY Patient seen this am 1:1 for therapy visit and was supine in bed upon therapist arrival. Patient voices mild abdominal pain and reports several non productive bouts of attempted Emesis last night and time checker. Patient transfers supine to sit EOB CGA and sit to stand SBA, then ambulates DISCHARGE SPECIALIST/CGA, 50'x 1, demonstrating very slow, "cautious" gait pattern. Patient returned to supine in bed with mild fatigue and no c/o increased pain. Patient remained with call light, tray table and telephone. Will continue per POC as tolerated, total treatment time 14 minutes. Darrion Miller, STAGE SETTINGS PAINTER
--- NOTE | 2018-11-04 11:08 | NUR ---
In to see patient with Case Mangager Alda Pak. Explained to patient that her insurance denied her going to a [facility] facility, the doctors did a peer to peer and the denial was upheld. We also discussed her appeal to [facility] for discharge. [facility] upheld the discharge and the patient filed for a reconsideration. I spoke with KRISTEL this moring at 9:15AM who stated it will take up to 3 days for the reconsideration, however if the reconsideration is also denied, the patient will be held responsible for the hospital bill. She stated she was already aware of that. She did sign a [employer] form recognizing she is responsible for the bill from noon today if [facility] upholds the discharge. she is concerned if she goes home her will contract C-diff. It was explained to her that she has been on antibiotics for 8 days and to discuss with her doctor. She says she can't go to her daughters for the same reason, she doesn't want to be contagious around them either. I will follow up with KRISTEL this afternoon. I discussed this with MAVIS Banerjee. If I do not hear anything this afternoon I will provide April with the phone number and case number so she can follow up tomorrow.
[2018-11-04 12:00] VITALS: BP 121/52
--- NOTE | 2018-11-04 13:38 | NUR ---
OT NOTE Pt was seen this P.M. 1:1 for 15 minute OT session. Upon arrival pt was supine in bed. Pt identified by name and and had complaints of increased fatigue and nausea. Pt transferred supine to sit EOB with SBA. Functional mobility completed around the room into the bathroom with SBA. There she sat sink side while completing UB grooming with supervision. Pt then transferred back into bed with SBA. There she was left with call light in hand, tray table in place, and phone in reach. Continue with rec D/c plan to home. MINH Riley/Jigna
--- NOTE | 2018-11-04 14:44 | NUR ---
OCCUPATIONAL THERAPY CO-SIGN I approve of the Occupational Therapy notes written above. EDER CALLAWAY OTR/Jigna
[2018-11-04 16:00] VITALS: BP 139/60
--- NOTE | 2018-11-04 16:00 | NUR ---
ADDRESSED FAMILY MEMBERS CONCERNS VIA PHONE. INFORMED RAFAEL MAJOR NP OF FAMILY [facility]ERS CONCERNS. EXCHANGED INFORMATION BACK TO FAMILY PER SPEARER AND PROVIDED EDUCATION TO MEDICATION AND DISEASE PROCESS. FAMILY STATES UNDERSTANDING AND VOICES NO OTHER COMPLAINTS AT THIS TIME.
[2018-11-04 20:00] VITALS: BP 128/59
[2018-11-05] VITALS: BP 110/52
--- NOTE | 2018-11-05 01:40 | NUR ---
PATIENT YELLING OUT HELP ME PATIENT CONFUSED AND STATING SHE NEEDS TO GO HOME.
[2018-11-05 08:00] VITALS: BP 102/50
[2018-11-05] MEDS ORDERED: VANCOMYCIN250 MG/2.5 PO (08:45)
--- NOTE | 2018-11-05 08:57 | NUR ---
PATIENT REFUSING PICTURES OF ABDOMINAL SITE UPON DISCHARGE, STATES "THAT NURSE JUST PUT THAT ON THERE LAST NIGHT".
[2018-11-05] MEDS ORDERED: VANCOCIN125 M1 PO (09:51)
--- NOTE | 2018-11-05 10:03 | NUR ---
Discharge instructions reviewed with patient/family. Patient receptive and verbalizes understanding. Follow-up care arranged. Written instructions given to patient/family. MAME LOPEZ
--- NOTE | 2018-11-05 10:04 | NUR ---
patient transported off floor in wheelchair with PA at this time.
[2018-11-06] MEDS ORDERED: K-TAB20 MEQ PO (04:17)
--- NOTE | 2018-11-07 07:53 | NUR ---
PHYSICAL THERAPY CO-SIGN I approve of the Phyical Therapy notes written above. RODRÍGUEZ PAREDES PT
[2018-11-11] MEDS ORDERED: VITAMIN D35000 UNIT PO (20:55)
[2018-11-16] MEDS ORDERED: ZOFRAN 4 MG ED2 TAB PO (12:45)
[2018-11-16] MEDS ORDERED: LACTINEX 0.2 MG1 TAB PO (12:45)
[2018-11-16] MEDS ORDERED: VANCOMYCIN250 MG/2.5 PO (12:45)
== END 2018-11-05 10:04 | disposition home health service (06) | DRG 862 ==
LOC: ED 12:20 → 5E 17:46 → EDHOLD 17:46 → 5E 17:57
PROVIDERS: Emergency Medicine; Family Medicine; Internal Medicine; ADMIT Internal Medicine
DX: T81.49XA Infection following a procedure, other surgical site, initial encounter (principal); E43 Unspecified severe protein-calorie malnutrition; N32.2 Vesical fistula, not elsewhere classified; A04.72 Enterocolitis due to Clostridium difficile, not specified as recurrent; K63.2 Fistula of intestine; I50.32 Chronic diastolic (congestive) heart failure; I13.0 Hypertensive heart and chronic kidney disease with heart failure and stage 1 through stage 4 chronic kidney disease, or unspecified chronic kidney disease; K57.20 Diverticulitis of large intestine with perforation and abscess without bleeding; N18.3 Chronic kidney disease, stage 3 (moderate); K21.9 Gastro-esophageal reflux disease without esophagitis; D64.9 Anemia, unspecified; E87.6 Hypokalemia; D72.810 Lymphocytopenia; R73.9 Hyperglycemia, unspecified; E66.09 Other obesity due to excess calories; E55.9 Vitamin D deficiency, unspecified; E53.8 Deficiency of other specified B group vitamins; E78.5 Hyperlipidemia, unspecified; G62.9 Polyneuropathy, unspecified; Z87.81 Personal history of (healed) traumatic fracture; Z90.49 Acquired absence of other specified parts of digestive tract; Z88.0 Allergy status to penicillin; Z88.2 Allergy status to sulfonamides; Z88.9 Allergy status to unspecified drugs, medicaments and biological substances; Z98.51 Tubal ligation status; Z87.891 Personal history of nicotine dependence; Z83.3 Family history of diabetes mellitus; Z82.49 Family history of ischemic heart disease and other diseases of the circulatory system; Z68.26 Body mass index [BMI] 26.0-26.9, adult; S31.109D Unspecified open wound of abdominal wall, unspecified quadrant without penetration into peritoneal cavity, subsequent encounter; Y83.8 Other surgical procedures as the cause of abnormal reaction of the patient, or of later complication, without mention of misadventure at the time of the procedure; Y82.8 Other medical devices associated with adverse incidents

== ENCOUNTER → 2018-10-27 | Outpatient (CLI) | payer OTHER | END | disposition home or self-care (01) | LOC: WOUNDCARE 00:39 | DX: K63.2 Fistula of intestine (principal); K91.71 Accidental puncture and laceration of a digestive system organ or structure during a digestive system procedure; S31.609D Unspecified open wound of abdominal wall, unspecified quadrant with penetration into peritoneal cavity, subsequent encounter; I12.9 Hypertensive chronic kidney disease with stage 1 through stage 4 chronic kidney disease, or unspecified chronic kidney disease; N18.9 Chronic kidney disease, unspecified; E55.9 Vitamin D deficiency, unspecified; E78.5 Hyperlipidemia, unspecified; K21.9 Gastro-esophageal reflux disease without esophagitis; G62.9 Polyneuropathy, unspecified; E66.9 Obesity, unspecified; E53.8 Deficiency of other specified B group vitamins; Z87.19 Personal history of other diseases of the digestive system; Z87.891 Personal history of nicotine dependence; X58.XXXD Exposure to other specified factors, subsequent encounter; Z68.29 Body mass index [BMI] 29.0-29.9, adult ==

== ENCOUNTER 2018-11-27 21:31 | Emergency (ER) | payer OTHER ==
[~2018-11-27] VITALS: Wt 68.0 kg
[~2018-11-27 21:31] MED LIST changes: +K-TAB20 MEQ PO; +LACTINEX 0.2 MG1 TAB PO; +VANCOCIN125 M1 PO; +VANCOMYCIN250 MG/2.5 PO; +ZOFRAN 4 MG ED2 TAB PO
[2018-11-27 22:29] LABS: BASO % 0.4 % (0.0-1.0); EOS # 0.1 10*3/uL (0.0-0.4); EOS % 1.6 % (1.0-4.0); HEMATOCRIT 30.9 % (37.0-47.0); HEMOGLOBIN 9.5 g/dl (12.0-16.0); LYMPH # 1.6 10*3/uL (1.3-4.4); LYMPH % 29.9 % (27.0-41.0); MEAN CELL VOLUME 93.4 fl (81.0-99.0); MEAN CORPUSCULAR HGB 28.7 pg (27.0-31.0); MEAN CORPUSCULAR HGB CONC 30.7 g/dl (33.0-37.0); MEAN PLATELET VOLUME 9.4 fl (9.6-12.3); MONO # 0.3 10*3/uL (0.1-1.0); MONO % 6.2 % (3.0-9.0); NEUT # 3.4 10*3/uL (2.3-7.9); NEUT % 61.7 % (47.0-73.0); PLATELET COUNT AUTOMATED 218 10*3/uL (130-400); RED BLOOD COUNT 3.31 10*6/uL (4.10-5.10); RED CELL DISTRI WIDTH 17.2 % (0-14.5); WHITE BLOOD COUNT 5.5 10*3/uL (4.8-10.8)
[2018-11-27 22:52] LABS: ALKALINE PHOSPHATASE 95 U/L (45-117); BUN 13 mg/dl (7-24); CHLORIDE 107 mmol/L (98-107); CREATININE 0.91 mg/dL (0.55-1.02); POTASSIUM 2.9 mmol/L (3.5-5.1); SGOT/AST 12 IU/L (3-35); SGPT/ALT 11 U/L (12-78); SODIUM 143 mmol/L (136-145); TOTAL PROTEIN 5.6 gm/dL (6.4-8.2)
== END 2018-11-27 23:41 | disposition home or self-care (01) ==
LOC: ED 21:31
PROVIDERS: Physician Assistant
DX: S31.109D Unspecified open wound of abdominal wall, unspecified quadrant without penetration into peritoneal cavity, subsequent encounter (principal); E87.6 Hypokalemia; Z88.0 Allergy status to penicillin; Z88.2 Allergy status to sulfonamides; Z88.1 Allergy status to other antibiotic agents; Z88.8 Allergy status to other drugs, medicaments and biological substances; Z79.2 Long term (current) use of antibiotics; Z79.899 Other long term (current) drug therapy; Z90.49 Acquired absence of other specified parts of digestive tract; Z87.891 Personal history of nicotine dependence; X58.XXXD Exposure to other specified factors, subsequent encounter

== ENCOUNTER → 2018-12-01 | Outpatient (CLI) | payer OTHER ==
[~2018-12-01] MED LIST changes: +OMNICEF300 MG PO; +POLY-VITAMIN1 EACH PO; +TENORMIN50 MG PO
== END | disposition home or self-care (01) ==
LOC: WOUNDCARE 13:09
DX: T81.89XD Other complications of procedures, not elsewhere classified, subsequent encounter (principal); S31.609D Unspecified open wound of abdominal wall, unspecified quadrant with penetration into peritoneal cavity, subsequent encounter; K91.71 Accidental puncture and laceration of a digestive system organ or structure during a digestive system procedure; K63.2 Fistula of intestine; L76.34 Postprocedural seroma of skin and subcutaneous tissue following other procedure; I12.9 Hypertensive chronic kidney disease with stage 1 through stage 4 chronic kidney disease, or unspecified chronic kidney disease; N18.9 Chronic kidney disease, unspecified; K21.9 Gastro-esophageal reflux disease without esophagitis; E55.9 Vitamin D deficiency, unspecified; E53.8 Deficiency of other specified B group vitamins; E78.5 Hyperlipidemia, unspecified; G62.9 Polyneuropathy, unspecified; E66.9 Obesity, unspecified; Z87.19 Personal history of other diseases of the digestive system; Z68.29 Body mass index [BMI] 29.0-29.9, adult; Z87.891 Personal history of nicotine dependence; X58.XXXD Exposure to other specified factors, subsequent encounter; Y83.8 Other surgical procedures as the cause of abnormal reaction of the patient, or of later complication, without mention of misadventure at the time of the procedure

== ENCOUNTER → 2018-12-09 | Outpatient (CLI) | payer OTHER ==
[2018-12-09 11:03] LABS: BASO % 0.2 % (0.0-1.0); EOS # 0.2 10*3/uL (0.0-0.4); EOS % 2.7 % (1.0-4.0); HEMATOCRIT 35.9 % (37.0-47.0); HEMOGLOBIN 11.1 g/dl (12.0-16.0); LYMPH # 1.5 10*3/uL (1.3-4.4); MEAN CELL VOLUME 93.5 fl (81.0-99.0); MEAN CORPUSCULAR HGB 28.9 pg (27.0-31.0); MEAN CORPUSCULAR HGB CONC 30.9 g/dl (33.0-37.0); MEAN PLATELET VOLUME 9.4 fl (9.6-12.3); MONO # 0.3 10*3/uL (0.1-1.0); NEUT # 3.7 10*3/uL (2.3-7.9); NEUT % 64.9 % (47.0-73.0); PLATELET COUNT AUTOMATED 237 10*3/uL (130-400); RED BLOOD COUNT 3.84 10*6/uL (4.10-5.10); WHITE BLOOD COUNT 5.7 10*3/uL (4.8-10.8)
[2018-12-09 11:34] LABS: ALBUMIN 2.4 gm/dl (3.1-4.5); ALKALINE PHOSPHATASE 117 U/L (45-117); BUN 12 mg/dl (7-24); CHLORIDE 106 mmol/L (98-107); CREATININE 0.95 mg/dL (0.55-1.02); POTASSIUM 3.3 mmol/L (3.5-5.1); SGOT/AST 14 IU/L (3-35); SGPT/ALT 12 U/L (12-78); SODIUM 140 mmol/L (136-145); TOTAL PROTEIN 6.1 gm/dL (6.4-8.2)
== END | disposition home or self-care (01) ==
LOC: LAB 02:26
PROVIDERS: Internal Medicine
DX: I10 Essential (primary) hypertension (principal)

== ENCOUNTER → 2018-12-12 | Outpatient (CLI) | payer OTHER | END | disposition home or self-care (01) | LOC: LAB 12-11 10:51 | DX: A49.8 Other bacterial infections of unspecified site (principal) ==

== ENCOUNTER → 2018-12-20 | Outpatient (CLI) | payer OTHER | END | disposition home or self-care (01) | LOC: WOUNDCARE 02:02 | DX: T81.89XD Other complications of procedures, not elsewhere classified, subsequent encounter (principal); S31.609D Unspecified open wound of abdominal wall, unspecified quadrant with penetration into peritoneal cavity, subsequent encounter; K91.71 Accidental puncture and laceration of a digestive system organ or structure during a digestive system procedure; K63.2 Fistula of intestine; L76.34 Postprocedural seroma of skin and subcutaneous tissue following other procedure; I12.9 Hypertensive chronic kidney disease with stage 1 through stage 4 chronic kidney disease, or unspecified chronic kidney disease; N18.9 Chronic kidney disease, unspecified; E78.5 Hyperlipidemia, unspecified; E55.9 Vitamin D deficiency, unspecified; E53.8 Deficiency of other specified B group vitamins; K21.9 Gastro-esophageal reflux disease without esophagitis; G60.9 Hereditary and idiopathic neuropathy, unspecified; K57.90 Diverticulosis of intestine, part unspecified, without perforation or abscess without bleeding; E66.9 Obesity, unspecified; Z87.891 Personal history of nicotine dependence; Z68.29 Body mass index [BMI] 29.0-29.9, adult; Y83.8 Other surgical procedures as the cause of abnormal reaction of the patient, or of later complication, without mention of misadventure at the time of the procedure ==

== ENCOUNTER → 2018-12-27 | Outpatient (CLI) | payer OTHER | END | disposition home or self-care (01) | LOC: WOUNDCARE 00:53 → RESCLI 12:00 → WOUNDCARE 14:10 | DX: I13.0 Hypertensive heart and chronic kidney disease with heart failure and stage 1 through stage 4 chronic kidney disease, or unspecified chronic kidney disease (principal); N18.3 Chronic kidney disease, stage 3 (moderate); I50.32 Chronic diastolic (congestive) heart failure; G62.9 Polyneuropathy, unspecified; R30.0 Dysuria; A04.72 Enterocolitis due to Clostridium difficile, not specified as recurrent; E55.9 Vitamin D deficiency, unspecified; K21.9 Gastro-esophageal reflux disease without esophagitis; E53.8 Deficiency of other specified B group vitamins; G60.9 Hereditary and idiopathic neuropathy, unspecified; R00.1 Bradycardia, unspecified; K63.2 Fistula of intestine; E78.5 Hyperlipidemia, unspecified ==

== ENCOUNTER → 2019-01-03 | Outpatient (CLI) | payer OTHER | END | disposition home or self-care (01) | LOC: WOUNDCARE 10:37 | DX: T81.89XD Other complications of procedures, not elsewhere classified, subsequent encounter (principal); S31.609D Unspecified open wound of abdominal wall, unspecified quadrant with penetration into peritoneal cavity, subsequent encounter; K91.71 Accidental puncture and laceration of a digestive system organ or structure during a digestive system procedure; K63.2 Fistula of intestine; L76.34 Postprocedural seroma of skin and subcutaneous tissue following other procedure; I12.9 Hypertensive chronic kidney disease with stage 1 through stage 4 chronic kidney disease, or unspecified chronic kidney disease; N18.9 Chronic kidney disease, unspecified; E55.9 Vitamin D deficiency, unspecified; E53.8 Deficiency of other specified B group vitamins; E78.5 Hyperlipidemia, unspecified; K21.9 Gastro-esophageal reflux disease without esophagitis; G62.9 Polyneuropathy, unspecified; E66.9 Obesity, unspecified; Z87.891 Personal history of nicotine dependence; Z87.19 Personal history of other diseases of the digestive system; X58.XXXD Exposure to other specified factors, subsequent encounter; Y83.8 Other surgical procedures as the cause of abnormal reaction of the patient, or of later complication, without mention of misadventure at the time of the procedure ==

== ENCOUNTER 2019-01-19 22:09 | Inpatient (IN) | payer OTHER ==
[~2019-01-19] VITALS: Ht 173.3 cm; Wt 81.7 kg
[~2019-01-19 22:09] MED LIST changes: -OMNICEF300 MG PO; -POLY-VITAMIN1 EACH PO; -TENORMIN50 MG PO
[2019-01-19 22:12] VITALS: BP 181/79
[2019-01-19 22:58] LABS: BASO % 0.2 % (0.0-1.0); EOS # 0.1 10*3/uL (0.0-0.4); HEMATOCRIT 34.7 % (37.0-47.0); HEMOGLOBIN 11.4 g/dl (12.0-16.0); LYMPH # 1.4 10*3/uL (1.3-4.4); LYMPH % 12.4 % (27.0-41.0); MEAN CELL VOLUME 89.7 fl (81.0-99.0); MEAN CORPUSCULAR HGB 29.5 pg (27.0-31.0); MEAN CORPUSCULAR HGB CONC 32.9 g/dl (33.0-37.0); MEAN PLATELET VOLUME 9.6 fl (9.6-12.3); MONO # 0.7 10*3/uL (0.1-1.0); MONO % 6.1 % (3.0-9.0); NEUT # 8.7 10*3/uL (2.3-7.9); NEUT % 79.8 % (47.0-73.0); PLATELET COUNT AUTOMATED 249 10*3/uL (130-400); RED BLOOD COUNT 3.87 10*6/uL (4.10-5.10); RED CELL DISTRI WIDTH 13.5 % (0-14.5); WHITE BLOOD COUNT 10.9 10*3/uL (4.8-10.8)
--- NOTE | 2019-01-19 22:59 | NUR ---
MARCIN GIORDANO NOTIFIED OF CRITICAL LACTIC ACID 2.2
[2019-01-19 23:09] LABS: INTERNATIONAL NORM RATIO 0.9 (2.0-3.5)
[2019-01-19 23:21] LABS: ALKALINE PHOSPHATASE 86 U/L (45-117); BUN 12 mg/dl (7-24); CHLORIDE 108 mmol/L (98-107); CREATININE 1.06 mg/dL (0.55-1.02); LIPASE 79 U/L (73-393); POTASSIUM 3.4 mmol/L (3.5-5.1); SGOT/AST 15 IU/L (3-35); SGPT/ALT 16 U/L (12-78); SODIUM 140 mmol/L (136-145); TOTAL PROTEIN 6.6 gm/dL (6.4-8.2)
[2019-01-20 00:38] LABS: BILIRUBIN NEGATIVE (NEGATIVE); BLOOD NEGATIVE (NEGATIVE); CLARITY CLEAR (CLEAR); COLOR YELLOW (YELLOW); GLUCOSE NEGATIVE (NEGATIVE); KETONE NEGATIVE (NEGATIVE); LEUKO ESTERASE NEGATIVE (NEGATIVE); NITRITE NEGATIVE (NEGATIVE); PH 5.5 (5.0-9.0); UROBILINOGEN 0.2 E.U./dl (0.2-1.0)
[2019-01-20 00:51] LABS: EPITHELIAL CELLS 0-5; WBC 0-2 wbc/hpf (0-5)
[2019-01-20 03:06] VITALS: BP 143/58
[2019-01-20 03:15] VITALS: BP 150/56
[2019-01-20] MEDS ORDERED: OMEPRAZOLE40 MG PO (04:14)
[2019-01-20] MEDS ORDERED: POLY-VITAMIN1 EACH PO (04:15)
[2019-01-20] MEDS ORDERED: TENORMIN50 MG PO (04:15)
--- NOTE | 2019-01-20 04:46 | NUR ---
JAEL KISER [id number] Please refer to the physician's history and physical for past medical history, comorbid conditions, and allergies. Diagnosis: SIGMOID DIVERTICULITIS Romulo Score: , WOUND DESCRIPTIONS: Wound Number: 1 Location of the wound: middle abdomen Type of wound: surgical Thickness: Full Size: 1.5cm x 0.9cm x 1.2cm Tunnelin.2cm at 12 o'clock Undermining: none Sinus Tract: none Presence of Exudate: Serous Amount: Moderate Color: Yellow, red Odor: None Periwound Skin Appearance: Scar Wound edges: approximated Pain (associated with wound): none at time of assessment How does patient state this happened? pt stated she had an appointment in the wound care center but cancelled she follow with Dr. Lakhani and she stated she will call next week to make her follow up appointment Surface the patient is resting on: Isoflex SKIN PREVENTION RECOMMENDATION: 1. Pressure redistribution support surface as appropriate 2. Elevate heels 3. Remove boots/TEDS every shift and reapply 4. Head of bed 30 degrees as tolerated 5. Assess nutrition and hydration 6. Manage moisture 7. Avoid the use of containment devices while in bed 8. Use absorptive products on surfaces limit layers of linens on bed 9. Turn and reposition every 1-2 hours in bed and every 1 hour in chair as tolerated 10. Weight shifts every 15 minutes while up in chair 11. Offloading with pillows or device to keep heels elevated off bed 12. Monitor skin at least every shift 13. Inspect under medical devices twice a day WOUND TREATMENT RECOMMENDATIONS: Dressing change: cleanse with normal saline. pack loosely with maxorb rope, cover with 4x4, small abd. pad, paper tape Change every other day and as needed
[2019-01-20 06:39] LABS: BASO % 0.2 % (0.0-1.0); EOS # 0.1 10*3/uL (0.0-0.4); EOS % 0.5 % (1.0-4.0); HEMATOCRIT 34.7 % (37.0-47.0); HEMOGLOBIN 10.9 g/dl (12.0-16.0); LYMPH # 1.6 10*3/uL (1.3-4.4); LYMPH % 12.7 % (27.0-41.0); MEAN CELL VOLUME 92.3 fl (81.0-99.0); MEAN CORPUSCULAR HGB CONC 31.4 g/dl (33.0-37.0); MEAN PLATELET VOLUME 10.3 fl (9.6-12.3); MONO # 0.7 10*3/uL (0.1-1.0); MONO % 5.7 % (3.0-9.0); NEUT # 9.8 10*3/uL (2.3-7.9); NEUT % 80.2 % (47.0-73.0); PLATELET COUNT AUTOMATED 200 10*3/uL (130-400); RED BLOOD COUNT 3.76 10*6/uL (4.10-5.10); RED CELL DISTRI WIDTH 13.7 % (0-14.5); WHITE BLOOD COUNT 12.3 10*3/uL (4.8-10.8)
[2019-01-20 06:56] LABS: BUN 11 mg/dl (7-24); CHLORIDE 108 mmol/L (98-107); PHOSPHOROUS 3.8 mg/dL (2.5-4.9); POTASSIUM 3.5 mmol/L (3.5-5.1); SODIUM 143 mmol/L (136-145)
--- NOTE | 2019-01-20 07:45 | NUR ---
Notified by NT Rn Mery Salazar that she spoke with Dr. Lakhani and he was notified of consult.
[2019-01-20 08:00] VITALS: BP 146/58
--- NOTE | 2019-01-20 08:04 | NUR ---
Dr. Vega notified of wound care recommendations.
[2019-01-20 12:00] VITALS: BP 138/62
[2019-01-20 16:00] VITALS: BP 139/61
[2019-01-20 20:00] VITALS: BP 150/58
[2019-01-21] VITALS: BP 152/58
[2019-01-21 06:51] LABS: BASO % 0.2 % (0.0-1.0); EOS # 0.2 10*3/uL (0.0-0.4); EOS % 2.7 % (1.0-4.0); HEMATOCRIT 34.6 % (37.0-47.0); LYMPH # 1.3 10*3/uL (1.3-4.4); LYMPH % 20.3 % (27.0-41.0); MEAN CELL VOLUME 92.3 fl (81.0-99.0); MEAN CORPUSCULAR HGB 29.3 pg (27.0-31.0); MEAN CORPUSCULAR HGB CONC 31.8 g/dl (33.0-37.0); MEAN PLATELET VOLUME 9.8 fl (9.6-12.3); MONO # 0.5 10*3/uL (0.1-1.0); NEUT # 4.2 10*3/uL (2.3-7.9); NEUT % 68.2 % (47.0-73.0); PLATELET COUNT AUTOMATED 224 10*3/uL (130-400); RED BLOOD COUNT 3.75 10*6/uL (4.10-5.10); RED CELL DISTRI WIDTH 13.9 % (0-14.5); WHITE BLOOD COUNT 6.2 10*3/uL (4.8-10.8)
[2019-01-21 07:02] LABS: BUN 8 mg/dl (7-24); CHLORIDE 108 mmol/L (98-107); POTASSIUM 3.4 mmol/L (3.5-5.1); SODIUM 142 mmol/L (136-145)
[2019-01-21 08:00] VITALS: BP 152/68
--- NOTE | 2019-01-21 11:25 | NUR ---
PT REQUESTED AND GIVEN TYLENOL FOR C/O HEADACHE. WILL MONITOR
[2019-01-21 12:00] VITALS: BP 163/68
--- NOTE | 2019-01-21 12:30 | NUR ---
TYLENOL HELPED WILL MONITOR
--- NOTE | 2019-01-21 13:16 | NUR ---
pt complained of pain at left side iv site. iv removed. new iv started, right forearm. pt tolerated procedure well.
[2019-01-21 16:00] VITALS: BP 159/66
--- NOTE | 2019-01-21 16:41 | NUR ---
PT REQUESTED AND GIVEN TYLENOL FOR C/O HEADACHE WILL MONITOR
[2019-01-21 20:00] VITALS: BP 142/64
--- NOTE | 2019-01-21 20:00 | NUR ---
24 HR chart check completed.
--- NOTE | 2019-01-21 21:00 | NUR ---
RESTING IN BED WITH NO ACUTE DISTRESS NOTED. RESPIRATIONS EASY. LUNGS DIMINISHED, CLEAR. PULSE OX 96% RA. OFFERED AND EDUCATED REGARDING TEDS, DECLINED STATING SHE TAKES "SHOTS". CALL LIGHT WITHIN REACH. NO VOICED COMPLAINTS
--- NOTE | 2019-01-21 22:17 | NUR ---
MEDICATED WITH RESTORIL PER PRN ORDER TO ASSIST WITH SLEEP. WILL MONITOR
[2019-01-22] VITALS: BP 131/63
--- NOTE | 2019-01-22 | NUR ---
MEDS EFFECTIVE. SLEEPING. RESPIRATIONS EASY. VSS. CALL LIGHT WITHIN REACH.
--- NOTE | 2019-01-22 06:00 | NUR ---
SLEPT THROUGHOUT NIGHT WITH NO DISTRESS NOTED. RESPIRATIONS EASY. CALL LIGHT WITHIN REACH. NO VOICED COMPLAINTS THIS SHIFT
[2019-01-22 08:00] VITALS: BP 136/51
[2019-01-22] MEDS ORDERED: FLAGYL500 MG PO (08:55)
[2019-01-22] MEDS ORDERED: AMINOPHYLLIN200 MG PO (08:55)
--- NOTE | 2019-01-22 10:42 | NUR ---
PT REFUSED DC WOUND PICTURES
--- NOTE | 2019-01-22 10:58 | NUR ---
Discharge instructions reviewed with patient/family. Patient receptive and verbalizes understanding. Follow-up care arranged. Written instructions given to patient/family. FERMIN ESPOSITO
== END 2019-01-22 11:00 | disposition home or self-care (01) | DRG 392 ==
LOC: ED 22:09 → 5E 01-20 02:44 → EDHOLD 01-20 02:44 → 5E 01-20 02:45
PROVIDERS: Internal Medicine; Nurse Practitioner Family; Student in an Organized Health Care Education/Training Program; ADMIT Internal Medicine
DX: K57.32 Diverticulitis of large intestine without perforation or abscess without bleeding (principal); E44.0 Moderate protein-calorie malnutrition; E87.2 Acidosis; I13.0 Hypertensive heart and chronic kidney disease with heart failure and stage 1 through stage 4 chronic kidney disease, or unspecified chronic kidney disease; I50.32 Chronic diastolic (congestive) heart failure; I16.0 Hypertensive urgency; E87.6 Hypokalemia; E87.8 Other disorders of electrolyte and fluid balance, not elsewhere classified; N18.3 Chronic kidney disease, stage 3 (moderate); E55.9 Vitamin D deficiency, unspecified; E53.8 Deficiency of other specified B group vitamins; G62.9 Polyneuropathy, unspecified; E78.5 Hyperlipidemia, unspecified; K21.9 Gastro-esophageal reflux disease without esophagitis; R73.9 Hyperglycemia, unspecified; D64.9 Anemia, unspecified; S31.109D Unspecified open wound of abdominal wall, unspecified quadrant without penetration into peritoneal cavity, subsequent encounter; X58.XXXD Exposure to other specified factors, subsequent encounter; Z90.49 Acquired absence of other specified parts of digestive tract; Z98.51 Tubal ligation status; Z87.891 Personal history of nicotine dependence; Z83.3 Family history of diabetes mellitus; Z82.49 Family history of ischemic heart disease and other diseases of the circulatory system; Z88.0 Allergy status to penicillin; Z88.2 Allergy status to sulfonamides; Z88.1 Allergy status to other antibiotic agents; Z88.8 Allergy status to other drugs, medicaments and biological substances; Z79.899 Other long term (current) drug therapy; Z68.27 Body mass index [BMI] 27.0-27.9, adult

== ENCOUNTER → 2019-01-26 | Outpatient (CLI) | payer OTHER ==
[~2019-01-26] MED LIST changes: +OMNICEF300 MG PO; +POLY-VITAMIN1 EACH PO; +TENORMIN50 MG PO
[2019-01-26 19:27] LABS: BILIRUBIN NEGATIVE (NEGATIVE); BLOOD NEGATIVE (NEGATIVE); CLARITY CLEAR (CLEAR); COLOR YELLOW (YELLOW); GLUCOSE NEGATIVE (NEGATIVE); KETONE NEGATIVE (NEGATIVE); LEUKO ESTERASE NEGATIVE (NEGATIVE); NITRITE POSITIVE (NEGATIVE); SPECIFIC GRAVITY 1.015 (1.005-1.030); UROBILINOGEN 0.2 E.U./dl (0.2-1.0)
== END | disposition home or self-care (01) ==
LOC: WOUNDCARE 07:02 → LAB 07:02
PROVIDERS: Internal Medicine Nephrology
DX: N18.3 Chronic kidney disease, stage 3 (moderate) (principal); N25.81 Secondary hyperparathyroidism of renal origin; E55.9 Vitamin D deficiency, unspecified

== ENCOUNTER → 2019-02-02 | Outpatient (CLI) | payer OTHER | END | disposition home or self-care (01) | LOC: RESCLI 00:54 | DX: E55.9 Vitamin D deficiency, unspecified (principal); I12.9 Hypertensive chronic kidney disease with stage 1 through stage 4 chronic kidney disease, or unspecified chronic kidney disease; N18.3 Chronic kidney disease, stage 3 (moderate); R30.0 Dysuria; G62.9 Polyneuropathy, unspecified; A04.72 Enterocolitis due to Clostridium difficile, not specified as recurrent; K21.9 Gastro-esophageal reflux disease without esophagitis; E53.8 Deficiency of other specified B group vitamins; G60.9 Hereditary and idiopathic neuropathy, unspecified; R00.1 Bradycardia, unspecified; K63.2 Fistula of intestine; Z79.899 Other long term (current) drug therapy ==

== ENCOUNTER → 2019-02-09 | Outpatient (CLI) | payer OTHER | END | disposition home or self-care (01) | LOC: WOUNDCARE 00:45 | DX: K63.2 Fistula of intestine (principal); K91.71 Accidental puncture and laceration of a digestive system organ or structure during a digestive system procedure; L76.34 Postprocedural seroma of skin and subcutaneous tissue following other procedure; S31.609D Unspecified open wound of abdominal wall, unspecified quadrant with penetration into peritoneal cavity, subsequent encounter; I12.9 Hypertensive chronic kidney disease with stage 1 through stage 4 chronic kidney disease, or unspecified chronic kidney disease; N18.9 Chronic kidney disease, unspecified; E55.9 Vitamin D deficiency, unspecified; E78.5 Hyperlipidemia, unspecified; K21.9 Gastro-esophageal reflux disease without esophagitis; G60.9 Hereditary and idiopathic neuropathy, unspecified; E66.9 Obesity, unspecified; E53.8 Deficiency of other specified B group vitamins; Z87.891 Personal history of nicotine dependence; Z87.19 Personal history of other diseases of the digestive system; Z68.29 Body mass index [BMI] 29.0-29.9, adult; Y83.8 Other surgical procedures as the cause of abnormal reaction of the patient, or of later complication, without mention of misadventure at the time of the procedure ==

== ENCOUNTER 2019-03-06 18:52 | Emergency (ER) | payer OTHER ==
[~2019-03-06] VITALS: Wt 79.4 kg
[2019-03-06 18:52] VITALS: BP 130/62
[~2019-03-06 18:52] MED LIST changes: -OMNICEF300 MG PO
[2019-03-06 19:30] LABS: BILIRUBIN NEGATIVE (NEGATIVE); BLOOD 1+ (NEGATIVE); CLARITY SL CLOUDY (CLEAR); COLOR YELLOW (YELLOW); GLUCOSE NEGATIVE (NEGATIVE); KETONE NEGATIVE (NEGATIVE); LEUKO ESTERASE TRACE (NEGATIVE); NITRITE NEGATIVE (NEGATIVE); PH 5.5 (5.0-9.0); UROBILINOGEN 0.2 E.U./dl (0.2-1.0)
[2019-03-06 19:37] LABS: BACTERIA 2+; HYALINE CAST 0-2; WBC 21-30 wbc/hpf (0-5)
[2019-03-06] MEDS ORDERED: OMNICEF300 MG PO (19:47)
== END 2019-03-06 20:13 | disposition home or self-care (01) ==
LOC: ED 18:52
PROVIDERS: Physician Assistant
DX: N39.0 Urinary tract infection, site not specified (principal); Z88.0 Allergy status to penicillin; Z88.2 Allergy status to sulfonamides; Z88.1 Allergy status to other antibiotic agents; Z88.8 Allergy status to other drugs, medicaments and biological substances; Z79.2 Long term (current) use of antibiotics; Z79.899 Other long term (current) drug therapy; Z90.49 Acquired absence of other specified parts of digestive tract; Z87.891 Personal history of nicotine dependence

== ENCOUNTER 2019-03-11 18:15 | Emergency (ER) | payer OTHER ==
[~2019-03-11] VITALS: Ht 172.7 cm; Wt 79.4 kg
[~2019-03-11 18:15] MED LIST changes: +OMNICEF300 MG PO
[2019-03-11 18:47] LABS: BASO % 0.2 % (0.0-1.0); EOS # 0.1 10*3/uL (0.0-0.4); HEMATOCRIT 34.7 % (37.0-47.0); HEMOGLOBIN 10.9 g/dl (12.0-16.0); LYMPH # 1.1 10*3/uL (1.3-4.4); LYMPH % 16.6 % (27.0-41.0); MEAN CELL VOLUME 89.9 fl (81.0-99.0); MEAN CORPUSCULAR HGB 28.2 pg (27.0-31.0); MEAN CORPUSCULAR HGB CONC 31.4 g/dl (33.0-37.0); MEAN PLATELET VOLUME 9.9 fl (9.6-12.3); MONO # 0.5 10*3/uL (0.1-1.0); MONO % 7.7 % (3.0-9.0); NEUT # 4.8 10*3/uL (2.3-7.9); NEUT % 73.2 % (47.0-73.0); PLATELET COUNT AUTOMATED 195 10*3/uL (130-400); RED BLOOD COUNT 3.86 10*6/uL (4.10-5.10); WHITE BLOOD COUNT 6.5 10*3/uL (4.8-10.8)
[2019-03-11 19:01] LABS: ALBUMIN 3.1 gm/dl (3.1-4.5); CREATININE 1.12 mg/dL (0.55-1.02); POTASSIUM 3.5 mmol/L (3.5-5.1)
[2019-03-11 19:13] LABS: BILIRUBIN NEGATIVE (NEGATIVE); BLOOD NEGATIVE (NEGATIVE); CLARITY CLEAR (CLEAR); COLOR YELLOW (YELLOW); GLUCOSE NEGATIVE (NEGATIVE); KETONE TRACE (NEGATIVE); LEUKO ESTERASE NEGATIVE (NEGATIVE); NITRITE NEGATIVE (NEGATIVE); PH 5.5 (5.0-9.0); SPECIFIC GRAVITY >= 1.030 (1.005-1.030); UROBILINOGEN 0.2 E.U./dl (0.2-1.0)
[2019-03-11 19:32] LABS: EPITHELIAL CELLS 41-50
[2019-03-11 19:33] LABS: MUCOUS 1+
[2019-03-11 22:20] VITALS: BP 132/60
== END 2019-03-11 22:48 | disposition home or self-care (01) ==
LOC: ED 18:15
PROVIDERS: Physician Assistant
DX: R10.84 Generalized abdominal pain (principal); Z88.0 Allergy status to penicillin; Z88.2 Allergy status to sulfonamides; Z88.1 Allergy status to other antibiotic agents; Z88.8 Allergy status to other drugs, medicaments and biological substances; Z79.899 Other long term (current) drug therapy; Z87.891 Personal history of nicotine dependence; Z98.890 Other specified postprocedural states; Z90.49 Acquired absence of other specified parts of digestive tract

== ENCOUNTER → 2019-03-21 | Outpatient (CLI) | payer OTHER | END | disposition home or self-care (01) | LOC: RESCLI 00:38 | DX: E55.9 Vitamin D deficiency, unspecified (principal); I12.9 Hypertensive chronic kidney disease with stage 1 through stage 4 chronic kidney disease, or unspecified chronic kidney disease; N18.3 Chronic kidney disease, stage 3 (moderate); G62.9 Polyneuropathy, unspecified; R30.0 Dysuria; K21.9 Gastro-esophageal reflux disease without esophagitis; E53.8 Deficiency of other specified B group vitamins; G60.9 Hereditary and idiopathic neuropathy, unspecified; R00.1 Bradycardia, unspecified; K63.2 Fistula of intestine; E78.5 Hyperlipidemia, unspecified; Z79.899 Other long term (current) drug therapy ==

== ENCOUNTER 2019-04-17 14:40 | Emergency (ER) | payer OTHER ==
[~2019-04-17] VITALS: Ht 172.7 cm; Wt 78.5 kg
--- NOTE | ~2019-04-17 | EKG ---
[place], [place] ELECTROCARDIOGRAM REPORT NAME: JAEL KISER UNIT #: [id number] ROOM: DOCTOR: EPIPHANY DRAFT REPORT BIRTHDATE: [birth year] [facility] Test Date: 2019-04-17 Test Time: 15:24:28 Pat Name: JAEL KISER Department: Room: Gender: F Deaf And Hard Of Hearing Teacher: Gisselle Christian : 1945 Requested By: MED STEVENSON PA-C Order Number: [id number] Reading MD: Isaias Anton MD Measurements Intervals [place] Rate: 52 P: 68 [place]: 159 QRS: 30 QRSD: 93 T: 19 QT: 404 QTc: 376 Interpretive Statements Sinus bradycardia Nonspecific ST \T\ T wave abnormality Electronically Signed On 04-19-2019 4:08:18 PDT by Isaias Anton MD CM:EKGRPT:ELECTROCARDIOGRAM REPORT [id number] MED STEVENSON PA-C EPIPHANY DRAFT REPORT MED STEVENSON PA-C
[2019-04-17 14:43] VITALS: BP 138/57
[2019-04-17 15:13] LABS: BASO % 0.3 % (0.0-1.0); EOS # 0.3 10*3/uL (0.0-0.4); EOS % 4.1 % (1.0-4.0); HEMATOCRIT 39.4 % (37.0-47.0); HEMOGLOBIN 12.4 g/dl (12.0-16.0); LYMPH # 1.8 10*3/uL (1.3-4.4); LYMPH % 23.6 % (27.0-41.0); MEAN CELL VOLUME 88.1 fl (81.0-99.0); MEAN CORPUSCULAR HGB 27.7 pg (27.0-31.0); MEAN CORPUSCULAR HGB CONC 31.5 g/dl (33.0-37.0); MEAN PLATELET VOLUME 9.9 fl (9.6-12.3); MONO # 0.5 10*3/uL (0.1-1.0); MONO % 5.9 % (3.0-9.0); NEUT # 5.1 10*3/uL (2.3-7.9); NEUT % 65.6 % (47.0-73.0); PLATELET COUNT AUTOMATED 326 10*3/uL (130-400); RED BLOOD COUNT 4.47 10*6/uL (4.10-5.10); RED CELL DISTRI WIDTH 15.4 % (0-14.5); WHITE BLOOD COUNT 7.8 10*3/uL (4.8-10.8)
[2019-04-17 15:30] LABS: ALBUMIN 3.5 gm/dl (3.1-4.5); CREATININE 1.18 mg/dL (0.55-1.02); POTASSIUM 4.3 mmol/L (3.5-5.1); TOTAL PROTEIN 7.8 gm/dL (6.4-8.2)
[2019-04-17 15:36] LABS: ACT PARTIAL THROMBO TIME 28.9 SECONDS (20.0-32.1); INTERNATIONAL NORM RATIO 0.9 (2.0-3.5)
[2019-04-17 16:54] LABS: BILIRUBIN NEGATIVE (NEGATIVE); BLOOD NEGATIVE (NEGATIVE); CLARITY CLEAR (CLEAR); COLOR YELLOW (YELLOW); GLUCOSE NEGATIVE (NEGATIVE); KETONE NEGATIVE (NEGATIVE); LEUKO ESTERASE NEGATIVE (NEGATIVE); NITRITE NEGATIVE (NEGATIVE); UROBILINOGEN 0.2 E.U./dl (0.2-1.0)
[2019-04-17 17:13] LABS: CALCIUM OXALATE CRYSTALS 1+; WBC 0-2 wbc/hpf (0-5)
== END 2019-04-17 17:31 | disposition home or self-care (01) ==
LOC: ED 14:40
PROVIDERS: Physician Assistant
DX: K52.9 Noninfective gastroenteritis and colitis, unspecified (principal); L08.9 Local infection of the skin and subcutaneous tissue, unspecified; Z88.0 Allergy status to penicillin; Z88.2 Allergy status to sulfonamides; Z88.1 Allergy status to other antibiotic agents; Z88.8 Allergy status to other drugs, medicaments and biological substances; Z79.2 Long term (current) use of antibiotics; Z79.899 Other long term (current) drug therapy; Z90.49 Acquired absence of other specified parts of digestive tract; Z87.891 Personal history of nicotine dependence

== ENCOUNTER → 2019-04-26 | Outpatient (CLI) | payer OTHER | END | disposition home or self-care (01) | LOC: RESCLI 01:56 | DX: E55.9 Vitamin D deficiency, unspecified (principal); I12.9 Hypertensive chronic kidney disease with stage 1 through stage 4 chronic kidney disease, or unspecified chronic kidney disease; N18.3 Chronic kidney disease, stage 3 (moderate); G62.9 Polyneuropathy, unspecified; R30.0 Dysuria; K21.9 Gastro-esophageal reflux disease without esophagitis; E53.8 Deficiency of other specified B group vitamins; G60.9 Hereditary and idiopathic neuropathy, unspecified; R00.1 Bradycardia, unspecified; K63.2 Fistula of intestine; Z79.899 Other long term (current) drug therapy ==

== ENCOUNTER → 2019-05-05 | Outpatient (CLI) | payer OTHER | END | disposition home or self-care (01) | LOC: LAB 11:27 | DX: K63.2 Fistula of intestine (principal) ==

== ENCOUNTER → 2019-06-01 | Outpatient (CLI) | payer OTHER | END | disposition home or self-care (01) | LOC: RESCLI 02:25 | DX: I12.9 Hypertensive chronic kidney disease with stage 1 through stage 4 chronic kidney disease, or unspecified chronic kidney disease (principal); N18.3 Chronic kidney disease, stage 3 (moderate); K63.2 Fistula of intestine; G62.9 Polyneuropathy, unspecified; K21.9 Gastro-esophageal reflux disease without esophagitis; E53.8 Deficiency of other specified B group vitamins; G60.9 Hereditary and idiopathic neuropathy, unspecified; R00.1 Bradycardia, unspecified; R30.0 Dysuria; E55.9 Vitamin D deficiency, unspecified; Z79.899 Other long term (current) drug therapy ==

== ENCOUNTER 2019-06-18 21:17 | Emergency (ER) | payer OTHER ==
[~2019-06-18] VITALS: Ht 172.7 cm; Wt 76.7 kg
[2019-06-18 21:18] VITALS: BP 124/61
[2019-06-18 22:10] LABS: BASO % 0.4 % (0.0-1.0); EOS # 0.2 10*3/uL (0.0-0.4); EOS % 4.2 % (1.0-4.0); HEMATOCRIT 35.3 % (37.0-47.0); HEMOGLOBIN 11.2 g/dl (12.0-16.0); LYMPH # 1.9 10*3/uL (1.3-4.4); LYMPH % 33.8 % (27.0-41.0); MEAN CELL VOLUME 90.3 fl (81.0-99.0); MEAN CORPUSCULAR HGB 28.6 pg (27.0-31.0); MEAN CORPUSCULAR HGB CONC 31.7 g/dl (33.0-37.0); MEAN PLATELET VOLUME 9.4 fl (9.6-12.3); MONO # 0.5 10*3/uL (0.1-1.0); MONO % 9.1 % (3.0-9.0); PLATELET COUNT AUTOMATED 259 10*3/uL (130-400); RED BLOOD COUNT 3.91 10*6/uL (4.10-5.10); RED CELL DISTRI WIDTH 14.8 % (0-14.5); WHITE BLOOD COUNT 5.7 10*3/uL (4.8-10.8)
== END 2019-06-18 23:55 | disposition home or self-care (01) ==
LOC: ED 21:17
PROVIDERS: Emergency Medicine
DX: Z48.01 Encounter for change or removal of surgical wound dressing (principal); K21.9 Gastro-esophageal reflux disease without esophagitis; E78.5 Hyperlipidemia, unspecified; I13.0 Hypertensive heart and chronic kidney disease with heart failure and stage 1 through stage 4 chronic kidney disease, or unspecified chronic kidney disease; N18.3 Chronic kidney disease, stage 3 (moderate); I50.32 Chronic diastolic (congestive) heart failure; Z88.0 Allergy status to penicillin; Z88.2 Allergy status to sulfonamides; Z88.1 Allergy status to other antibiotic agents; Z88.8 Allergy status to other drugs, medicaments and biological substances; Z79.2 Long term (current) use of antibiotics; Z79.899 Other long term (current) drug therapy; Z90.49 Acquired absence of other specified parts of digestive tract; Z87.891 Personal history of nicotine dependence

== ENCOUNTER → 2019-08-02 | Outpatient (CLI) | payer OTHER | END | disposition home or self-care (01) | LOC: CT 08-01 14:53 | DX: K57.90 Diverticulosis of intestine, part unspecified, without perforation or abscess without bleeding (principal); J98.11 Atelectasis ==

== ENCOUNTER → 2020-02-16 | Outpatient (CLI) | payer OTHER ==
[2020-02-16 11:11] LABS: BASO % 0.5 % (0.0-1.0); EOS # 0.1 10*3/uL (0.0-0.4); EOS % 3.2 % (1.0-4.0); HEMATOCRIT 36.7 % (37.0-47.0); LYMPH # 1.7 10*3/uL (1.3-4.4); LYMPH % 37.6 % (27.0-41.0); MEAN CELL VOLUME 83.6 fl (81.0-99.0); MEAN CORPUSCULAR HGB 26.7 pg (27.0-31.0); MEAN CORPUSCULAR HGB CONC 31.9 g/dl (33.0-37.0); MONO # 0.3 10*3/uL (0.1-1.0); MONO % 6.3 % (3.0-9.0); NEUT # 2.3 10*3/uL (2.3-7.9); NEUT % 52.2 % (47.0-73.0); PLATELET COUNT AUTOMATED 231 10*3/uL (130-400); RED BLOOD COUNT 4.39 10*6/uL (4.10-5.10); RED CELL DISTRI WIDTH 13.9 % (0-14.5); WHITE BLOOD COUNT 4.4 10*3/uL (4.8-10.8)
[2020-02-16 11:32] LABS: ALBUMIN 3.7 gm/dl (3.1-4.5); CREATININE 1.2 mg/dL (0.55-1.02); POTASSIUM 3.1 mmol/L (3.5-5.1)
[2020-02-16 12:00] LABS: PTH INTACT 57.3 pg/mL (18.5-88.0); VITAMIN D, 25-HYDROXY 73.6 ng/mL (30-100)
== END | disposition home or self-care (01) ==
LOC: LAB 00:42 → RESCLI 06:40 → LAB 10:34
PROVIDERS: Internal Medicine; Internal Medicine Nephrology
DX: R60.0 Localized edema (principal); I13.0 Hypertensive heart and chronic kidney disease with heart failure and stage 1 through stage 4 chronic kidney disease, or unspecified chronic kidney disease; I50.32 Chronic diastolic (congestive) heart failure; N18.3 Chronic kidney disease, stage 3 (moderate); R53.82 Chronic fatigue, unspecified; S91.352D Open bite, left foot, subsequent encounter; W55.01XD Bitten by cat, subsequent encounter; E78.2 Mixed hyperlipidemia; E55.9 Vitamin D deficiency, unspecified; R91.1 Solitary pulmonary nodule; K21.9 Gastro-esophageal reflux disease without esophagitis; N30.01 Acute cystitis with hematuria; E53.8 Deficiency of other specified B group vitamins; E66.09 Other obesity due to excess calories; G62.9 Polyneuropathy, unspecified; R06.09 Other forms of dyspnea; E66.9 Obesity, unspecified; K63.1 Perforation of intestine (nontraumatic); H92.01 Otalgia, right ear; G60.9 Hereditary and idiopathic neuropathy, unspecified; Z79.899 Other long term (current) drug therapy; Z98.890 Other specified postprocedural states; Z90.49 Acquired absence of other specified parts of digestive tract; Z88.0 Allergy status to penicillin; Z88.8 Allergy status to other drugs, medicaments and biological substances

== ENCOUNTER → 2020-03-01 | Outpatient (CLI) | payer OTHER | END | disposition home or self-care (01) | LOC: RESCLI 03:55 | DX: I12.9 Hypertensive chronic kidney disease with stage 1 through stage 4 chronic kidney disease, or unspecified chronic kidney disease (principal); N18.3 Chronic kidney disease, stage 3 (moderate); N30.00 Acute cystitis without hematuria; E78.2 Mixed hyperlipidemia; R91.1 Solitary pulmonary nodule; K21.9 Gastro-esophageal reflux disease without esophagitis; E55.9 Vitamin D deficiency, unspecified; E53.8 Deficiency of other specified B group vitamins; G60.9 Hereditary and idiopathic neuropathy, unspecified; R60.0 Localized edema; Z90.49 Acquired absence of other specified parts of digestive tract; Z88.8 Allergy status to other drugs, medicaments and biological substances; Z98.890 Other specified postprocedural states; Z79.899 Other long term (current) drug therapy ==

== ENCOUNTER → 2020-04-19 | Outpatient (CLI) | payer OTHER ==
[2020-04-19 10:57] LABS: CREATININE 1.21 mg/dL (0.55-1.02); POTASSIUM 4.1 mmol/L (3.5-5.1)
== END | disposition home or self-care (01) ==
LOC: RESCLI 01:10
PROVIDERS: Internal Medicine; ATTEND Emergency Medicine
DX: E87.6 Hypokalemia (principal)

== ENCOUNTER → 2020-05-22 | Outpatient (CLI) | payer OTHER | END | disposition home or self-care (01) | LOC: CT 05-16 14:00 | PROVIDERS: ATTEND Student in an Organized Health Care Education/Training Program | DX: J43.9 Emphysema, unspecified (principal); K21.9 Gastro-esophageal reflux disease without esophagitis; E55.9 Vitamin D deficiency, unspecified; E53.8 Deficiency of other specified B group vitamins; E04.1 Nontoxic single thyroid nodule; I10 Essential (primary) hypertension; G60.9 Hereditary and idiopathic neuropathy, unspecified; Z13.9 Encounter for screening, unspecified; Z79.899 Other long term (current) drug therapy; Z98.890 Other specified postprocedural states; Z88.0 Allergy status to penicillin; Z88.8 Allergy status to other drugs, medicaments and biological substances ==

== ENCOUNTER 2020-11-15 07:38 | Emergency (ER) | payer OTHER ==
[~2020-11-15] VITALS: Ht 172.7 cm; Wt 81.6 kg
[2020-11-15 07:57] VITALS: BP 150/57
[2020-11-15 08:09] LABS: BASO % 0.1 % (0.0-1.0); EOS # 0.1 10*3/uL (0.0-0.4); EOS % 1.9 % (1.0-4.0); HEMATOCRIT 37.7 % (37.0-47.0); LYMPH # 1.8 10*3/uL (1.3-4.4); LYMPH % 24.9 % (27.0-41.0); MEAN CELL VOLUME 87.1 fl (81.0-99.0); MEAN CORPUSCULAR HGB 28.4 pg (27.0-31.0); MEAN CORPUSCULAR HGB CONC 32.6 g/dl (33.0-37.0); MEAN PLATELET VOLUME 9.7 fl (9.6-12.3); MONO # 0.4 10*3/uL (0.1-1.0); MONO % 5.1 % (3.0-9.0); NEUT # 4.9 10*3/uL (2.3-7.9); NEUT % 67.6 % (47.0-73.0); PLATELET COUNT AUTOMATED 190 10*3/uL (130-400); RED BLOOD COUNT 4.33 10*6/uL (4.10-5.10); RED CELL DISTRI WIDTH 14.1 % (0-14.5); WHITE BLOOD COUNT 7.3 10*3/uL (4.8-10.8)
[2020-11-15 08:25] LABS: ALBUMIN 3.4 gm/dl (3.1-4.5); CREATININE 1.44 mg/dL (0.55-1.02); POTASSIUM 3.9 mmol/L (3.5-5.1); TOTAL PROTEIN 7.2 gm/dL (6.4-8.2)
[2020-11-15 08:30] LABS: BILIRUBIN Negative (Negative); BLOOD 3+ (Negative); CLARITY Clear (Clear); COLOR Yellow (Yellow); GLUCOSE Negative (Negative); KETONE Negative (Negative); LEUKO ESTERASE 2+ (Negative); NITRITE Negative (Negative); PH 5.5 (4.5-8.0); SPECIFIC GRAVITY <= 1.005 (1.001-1.030); UROBILINOGEN 0.2 E.U./dl (0.0-1.0)
[2020-11-15 08:37] LABS: BACTERIA TRACE; WBC 31-40 wbc/hpf (0-5)
[2020-11-15] MEDS ORDERED: CEFUROXIME AXE250 MG PO (08:41)
== END 2020-11-15 09:00 | disposition home or self-care (01) ==
LOC: ED 07:38
PROVIDERS: Student in an Organized Health Care Education/Training Program
DX: N39.0 Urinary tract infection, site not specified (principal); Z88.0 Allergy status to penicillin; Z88.2 Allergy status to sulfonamides; Z88.8 Allergy status to other drugs, medicaments and biological substances; Z79.899 Other long term (current) drug therapy; Z90.49 Acquired absence of other specified parts of digestive tract; Z98.51 Tubal ligation status; Z98.890 Other specified postprocedural states

== ENCOUNTER → 2020-11-28 | Outpatient (CLI) | payer OTHER ==
[~2020-11-28] MED LIST changes: +CEFUROXIME AXE250 MG PO
[2020-11-28 18:39] LABS: CREATININE 1.62 mg/dL (0.55-1.02); POTASSIUM 4.4 mmol/L (3.5-5.1)
== END | disposition home or self-care (01) ==
LOC: RESCLI 00:14
PROVIDERS: Internal Medicine; ATTEND Internal Medicine
DX: J01.00 Acute maxillary sinusitis, unspecified (principal); R30.0 Dysuria; I10 Essential (primary) hypertension; K21.9 Gastro-esophageal reflux disease without esophagitis; E55.9 Vitamin D deficiency, unspecified; E53.8 Deficiency of other specified B group vitamins; G60.9 Hereditary and idiopathic neuropathy, unspecified; R25.2 Cramp and spasm; H60.391 Other infective otitis externa, right ear; Z79.899 Other long term (current) drug therapy; Z90.49 Acquired absence of other specified parts of digestive tract; Z98.890 Other specified postprocedural states; Z88.8 Allergy status to other drugs, medicaments and biological substances

== ENCOUNTER → 2021-01-02 | Outpatient (CLI) | payer OTHER ==
[2021-01-02 14:08] LABS: BASO % 0.4 % (0.0-1.0); EOS # 0.1 10*3/uL (0.0-0.4); EOS % 2.7 % (1.0-4.0); HEMATOCRIT 39.3 % (37.0-47.0); LYMPH # 1.7 10*3/uL (1.3-4.4); LYMPH % 31.7 % (27.0-41.0); MEAN CELL VOLUME 88.7 fl (81.0-99.0); MEAN CORPUSCULAR HGB 28.7 pg (27.0-31.0); MEAN CORPUSCULAR HGB CONC 32.3 g/dl (33.0-37.0); MEAN PLATELET VOLUME 10.2 fl (9.6-12.3); MONO # 0.3 10*3/uL (0.1-1.0); MONO % 6.1 % (3.0-9.0); NEUT # 3.1 10*3/uL (2.3-7.9); NEUT % 58.5 % (47.0-73.0); PLATELET COUNT AUTOMATED 207 10*3/uL (130-400); RED BLOOD COUNT 4.43 10*6/uL (4.10-5.10); RED CELL DISTRI WIDTH 13.2 % (0-14.5); WHITE BLOOD COUNT 5.3 10*3/uL (4.8-10.8)
[2021-01-02 14:25] LABS: BILIRUBIN Negative (Negative); BLOOD Negative (Negative); CLARITY Clear (Clear); COLOR Yellow (Yellow); GLUCOSE Negative (Negative); KETONE Negative (Negative); LEUKO ESTERASE Trace (Negative); NITRITE Negative (Negative); SPECIFIC GRAVITY <= 1.005 (1.001-1.030); UROBILINOGEN 0.2 E.U./dl (0.0-1.0)
[2021-01-02 14:33] LABS: ALBUMIN 3.5 gm/dl (3.1-4.5); CREATININE 1.39 mg/dL (0.55-1.02); POTASSIUM 3.9 mmol/L (3.5-5.1)
[2021-01-02 14:37] LABS: EPITHELIAL CELLS 0-2
[2021-01-02 17:51] LABS: PTH INTACT 63.9 pg/mL (18.5-88.0); VITAMIN D, 25-HYDROXY 48.8 ng/mL (30-100)
== END | disposition home or self-care (01) ==
LOC: LAB 01:41
PROVIDERS: Internal Medicine Nephrology; ATTEND Internal Medicine
DX: I12.9 Hypertensive chronic kidney disease with stage 1 through stage 4 chronic kidney disease, or unspecified chronic kidney disease (principal); I50.32 Chronic diastolic (congestive) heart failure; N18.30 Chronic kidney disease, stage 3 unspecified; K21.9 Gastro-esophageal reflux disease without esophagitis; E55.9 Vitamin D deficiency, unspecified; E78.5 Hyperlipidemia, unspecified; E53.8 Deficiency of other specified B group vitamins; G60.9 Hereditary and idiopathic neuropathy, unspecified; R60.0 Localized edema; Z12.39 Encounter for other screening for malignant neoplasm of breast; Z13.820 Encounter for screening for osteoporosis; Z79.899 Other long term (current) drug therapy; Z87.891 Personal history of nicotine dependence; Z88.2 Allergy status to sulfonamides; Z88.0 Allergy status to penicillin; Z88.8 Allergy status to other drugs, medicaments and biological substances

== ENCOUNTER → 2021-03-27 | Outpatient (CLI) | payer OTHER ==
[~2021-03-27] MED LIST changes: +CEFUROXIME AXE500 MG PO
== END | disposition home or self-care (01) ==
LOC: RESCLI 01:08
PROVIDERS: ATTEND Internal Medicine
DX: R19.7 Diarrhea, unspecified (principal); R25.1 Tremor, unspecified; R91.1 Solitary pulmonary nodule; I12.9 Hypertensive chronic kidney disease with stage 1 through stage 4 chronic kidney disease, or unspecified chronic kidney disease; N18.30 Chronic kidney disease, stage 3 unspecified; K21.9 Gastro-esophageal reflux disease without esophagitis; J30.2 Other seasonal allergic rhinitis; E55.9 Vitamin D deficiency, unspecified; E53.8 Deficiency of other specified B group vitamins; G60.9 Hereditary and idiopathic neuropathy, unspecified; R60.0 Localized edema; M17.0 Bilateral primary osteoarthritis of knee; E78.5 Hyperlipidemia, unspecified; M62.838 Other muscle spasm; Z88.0 Allergy status to penicillin; Z88.8 Allergy status to other drugs, medicaments and biological substances; Z87.891 Personal history of nicotine dependence; Z90.49 Acquired absence of other specified parts of digestive tract; Z98.890 Other specified postprocedural states; Z79.899 Other long term (current) drug therapy

== ENCOUNTER → 2021-04-10 | Outpatient (CLI) | payer OTHER | END | disposition home or self-care (01) | LOC: CT 04-08 09:00 → RAD 00:27 → CT 14:00 | PROVIDERS: ATTEND Internal Medicine | DX: Z13.820 Encounter for screening for osteoporosis (principal); R91.1 Solitary pulmonary nodule; J43.9 Emphysema, unspecified; Z78.0 Asymptomatic menopausal state ==

== ENCOUNTER 2021-04-17 16:10 | Emergency (ER) | payer OTHER ==
[~2021-04-17] VITALS: Ht 170.1 cm; Wt 91.6 kg
[~2021-04-17 16:10] MED LIST changes: -CEFUROXIME AXE500 MG PO
[2021-04-17 16:25] VITALS: BP 160/66
[2021-04-17 16:58] LABS: BASO % 0.3 % (0.0-1.0); EOS # 0.1 10*3/uL (0.0-0.4); HEMATOCRIT 37.8 % (37.0-47.0); LYMPH # 1.6 10*3/uL (1.3-4.4); LYMPH % 25.3 % (27.0-41.0); MEAN CELL VOLUME 86.1 fl (81.0-99.0); MEAN CORPUSCULAR HGB CONC 32.5 g/dl (33.0-37.0); MEAN PLATELET VOLUME 10.1 fl (9.6-12.3); MONO # 0.4 10*3/uL (0.1-1.0); NEUT # 4.1 10*3/uL (2.3-7.9); NEUT % 66.2 % (47.0-73.0); PLATELET COUNT AUTOMATED 164 10*3/uL (130-400); RED BLOOD COUNT 4.39 10*6/uL (4.10-5.10); RED CELL DISTRI WIDTH 13.8 % (0-14.5); WHITE BLOOD COUNT 6.1 10*3/uL (4.8-10.8)
[2021-04-17 17:15] LABS: BILIRUBIN Negative (Negative); BLOOD 3+ (Negative); CLARITY Cloudy (Clear); COLOR Yellow (Yellow); GLUCOSE Negative (Negative); KETONE Trace (Negative); LEUKO ESTERASE 2+ (Negative); NITRITE Negative (Negative)
[2021-04-17 17:18] LABS: ALBUMIN 3.7 gm/dl (3.1-4.5); CREATININE 1.4 mg/dL (0.55-1.02); POTASSIUM 3.5 mmol/L (3.5-5.1); TOTAL PROTEIN 7.3 gm/dL (6.4-8.2)
[2021-04-17 17:25] LABS: RBC 31-40 rbc/hpf (0-2); WBC TNTC wbc/hpf (0-5)
[2021-04-17 17:26] LABS: EPITHELIAL CELLS 0-2
[2021-04-17 17:27] LABS: BACTERIA 2+
[2021-04-17] MEDS ORDERED: CEFUROXIME AXE500 MG PO (18:25)
== END 2021-04-17 18:37 | disposition home or self-care (01) ==
LOC: ED 16:10
PROVIDERS: Emergency Medicine
DX: N39.0 Urinary tract infection, site not specified (principal); Z88.0 Allergy status to penicillin; Z88.2 Allergy status to sulfonamides; Z88.1 Allergy status to other antibiotic agents; Z88.8 Allergy status to other drugs, medicaments and biological substances; Z79.899 Other long term (current) drug therapy; Z87.891 Personal history of nicotine dependence

== ENCOUNTER → 2021-05-08 | Outpatient (CLI) | payer OTHER ==
[~2021-05-08] MED LIST changes: +CEFUROXIME AXE500 MG PO
[2021-05-08 11:45] LABS: BILIRUBIN Negative (Negative); BLOOD Negative (Negative); CLARITY Clear (Clear); COLOR Yellow (Yellow); GLUCOSE Negative (Negative); KETONE Negative (Negative); LEUKO ESTERASE Trace (Negative); NITRITE Negative (Negative)
[2021-05-08 11:53] LABS: MUCOUS TRACE; RBC 0-2 rbc/hpf (0-2)
[2021-05-08 12:05] LABS: POTASSIUM 3.9 mmol/L (3.5-5.1)
[2021-05-08 12:17] LABS: CREATININE 1.33 mg/dL (0.55-1.02)
== END | disposition home or self-care (01) ==
LOC: LAB 01:00
PROVIDERS: Student in an Organized Health Care Education/Training Program; ATTEND Internal Medicine
DX: N39.0 Urinary tract infection, site not specified (principal)

== ENCOUNTER → 2021-05-20 | Outpatient (CLI) | payer OTHER | END | disposition home or self-care (01) | LOC: RESCLI 12:57 | PROVIDERS: ATTEND Internal Medicine | DX: I12.9 Hypertensive chronic kidney disease with stage 1 through stage 4 chronic kidney disease, or unspecified chronic kidney disease (principal); N18.30 Chronic kidney disease, stage 3 unspecified; K21.9 Gastro-esophageal reflux disease without esophagitis; E55.9 Vitamin D deficiency, unspecified; E53.8 Deficiency of other specified B group vitamins; G60.9 Hereditary and idiopathic neuropathy, unspecified; R60.0 Localized edema; J30.2 Other seasonal allergic rhinitis; M17.0 Bilateral primary osteoarthritis of knee; Z79.899 Other long term (current) drug therapy; Z90.49 Acquired absence of other specified parts of digestive tract; Z98.890 Other specified postprocedural states; Z87.891 Personal history of nicotine dependence; Z88.0 Allergy status to penicillin; Z88.2 Allergy status to sulfonamides; Z88.1 Allergy status to other antibiotic agents; Z88.8 Allergy status to other drugs, medicaments and biological substances ==

== ENCOUNTER → 2021-05-21 | Outpatient (CLI) | payer OTHER ==
[2021-05-21 13:57] LABS: CHOLESTEROL 220 mg/dL (<200); LDL CHOLESTEROL 131 mg/dL (9-159); TRIGLYCERIDES 239 mg/dl (<150)
== END | disposition home or self-care (01) ==
LOC: LAB 11:41
PROVIDERS: Social Worker Clinical; ATTEND Student in an Organized Health Care Education/Training Program
DX: I10 Essential (primary) hypertension (principal)

== ENCOUNTER → 2021-06-05 | Outpatient (CLI) | payer OTHER | END | disposition home or self-care (01) | LOC: RESCLI 00:17 | PROVIDERS: ATTEND Internal Medicine | DX: I10 Essential (primary) hypertension (principal); E78.2 Mixed hyperlipidemia; R25.2 Cramp and spasm; K21.9 Gastro-esophageal reflux disease without esophagitis; E53.8 Deficiency of other specified B group vitamins; Z79.899 Other long term (current) drug therapy ==

== ENCOUNTER → 2021-09-04 | Outpatient (CLI) | payer OTHER ==
[2021-09-04 15:39] LABS: VITAMIN D, 25-HYDROXY 53.4 ng/mL (30-100)
== END | disposition home or self-care (01) ==
LOC: RESCLI 01:17
PROVIDERS: Internal Medicine; ATTEND Internal Medicine
DX: H65.196 Other acute nonsuppurative otitis media, recurrent, bilateral (principal); I10 Essential (primary) hypertension; E53.8 Deficiency of other specified B group vitamins; K21.9 Gastro-esophageal reflux disease without esophagitis; J30.2 Other seasonal allergic rhinitis; G60.9 Hereditary and idiopathic neuropathy, unspecified; E55.9 Vitamin D deficiency, unspecified; Z79.899 Other long term (current) drug therapy

== ENCOUNTER 2021-11-13 20:38 | Inpatient (IN) | payer OTHER ==
[~2021-11-13] VITALS: Ht 170.2 cm; Wt 90.0 kg
[~2021-11-13 20:38] MED LIST changes: -MECLIZINE HYD12.5 MG PO
[2021-11-13 20:51] VITALS: BP 138/88
[2021-11-13 21:35] LABS: BASO % 0.3 % (0.0-1.0); EOS # 0.1 10*3/uL (0.0-0.4); EOS % 1.7 % (1.0-4.0); HEMATOCRIT 42.8 % (37.0-47.0); LYMPH # 1.6 10*3/uL (1.3-4.4); LYMPH % 27.2 % (27.0-41.0); MEAN CELL VOLUME 87.2 fl (81.0-99.0); MEAN CORPUSCULAR HGB 28.3 pg (27.0-31.0); MEAN CORPUSCULAR HGB CONC 32.5 g/dl (33.0-37.0); MEAN PLATELET VOLUME 10.1 fl (9.6-12.3); MONO # 0.4 10*3/uL (0.1-1.0); MONO % 6.7 % (3.0-9.0); NEUT # 3.8 10*3/uL (2.3-7.9); NEUT % 63.8 % (47.0-73.0); PLATELET COUNT AUTOMATED 198 10*3/uL (130-400); RED BLOOD COUNT 4.91 10*6/uL (4.10-5.10); RED CELL DISTRI WIDTH 13.2 % (0-14.5)
[2021-11-13 21:57] LABS: CREATININE 1.68 mg/dL (0.55-1.02); POTASSIUM 3.9 mmol/L (3.5-5.1); TOTAL PROTEIN 6.6 gm/dL (6.4-8.2)
[2021-11-13 22:03] LABS: THYROID STIM HORMONE (HS) 1.6 uIU/ml (0.358-4.75)
[2021-11-13 22:04] LABS: CKMB 5.3 ng/ml (0.5-3.6)
[2021-11-13 22:05] LABS: BILIRUBIN Negative (Negative); BLOOD Negative (Negative); CLARITY Clear (Clear); COLOR Yellow (Yellow); GLUCOSE Negative (Negative); KETONE Negative (Negative); LEUKO ESTERASE Trace (Negative); NITRITE Negative (Negative); SPECIFIC GRAVITY 1.025 (1.001-1.030)
[2021-11-14 01:25] VITALS: BP 149/62
[2021-11-14] MEDS ORDERED: MECLIZINE HYD12.5 MG PO (02:35)
[2021-11-14 05:55] LABS: CREATININE 1.55 mg/dL (0.55-1.02); POTASSIUM 4.1 mmol/L (3.5-5.1); TOTAL PROTEIN 5.8 gm/dL (6.4-8.2)
[2021-11-14 06:02] LABS: FREE T4 1.21 ng/dl (0.76-1.46); THYROID STIM HORMONE (HS) 1.67 uIU/ml (0.358-4.75)
[2021-11-14 06:24] LABS: BASO % 0.4 % (0.0-1.0); EOS # 0.1 10*3/uL (0.0-0.4); EOS % 2.2 % (1.0-4.0); HEMATOCRIT 37.5 % (37.0-47.0); LYMPH # 1.5 10*3/uL (1.3-4.4); MEAN CELL VOLUME 89.3 fl (81.0-99.0); MEAN CORPUSCULAR HGB 28.8 pg (27.0-31.0); MEAN CORPUSCULAR HGB CONC 32.3 g/dl (33.0-37.0); MEAN PLATELET VOLUME 10.4 fl (9.6-12.3); MONO # 0.3 10*3/uL (0.1-1.0); NEUT # 2.7 10*3/uL (2.3-7.9); NEUT % 58.2 % (47.0-73.0); PLATELET COUNT AUTOMATED 170 10*3/uL (130-400); RED CELL DISTRI WIDTH 13.3 % (0-14.5); WHITE BLOOD COUNT 4.6 10*3/uL (4.8-10.8)
[2021-11-14 07:42] LABS: VITAMIN D, 25-HYDROXY 59.7 ng/mL (30-100)
[2021-11-14 08:00] VITALS: BP 148/55
[2021-11-14 12:00] VITALS: BP 155/72
== END 2021-11-14 15:16 | disposition home or self-care (01) | DRG 683 ==
LOC: ED 20:38 → EDHOLD 11-14 00:29 → 5E 11-14 00:29
PROVIDERS: Emergency Medicine; Internal Medicine; ADMIT Internal Medicine; ATTEND Internal Medicine
DX: N17.0 Acute kidney failure with tubular necrosis (principal); E44.0 Moderate protein-calorie malnutrition; I12.9 Hypertensive chronic kidney disease with stage 1 through stage 4 chronic kidney disease, or unspecified chronic kidney disease; N18.32 Chronic kidney disease, stage 3b; K21.9 Gastro-esophageal reflux disease without esophagitis; E87.8 Other disorders of electrolyte and fluid balance, not elsewhere classified; E86.0 Dehydration; R73.9 Hyperglycemia, unspecified; K52.9 Noninfective gastroenteritis and colitis, unspecified; E78.5 Hyperlipidemia, unspecified; Z88.0 Allergy status to penicillin; Z88.2 Allergy status to sulfonamides; Z88.1 Allergy status to other antibiotic agents; Z88.8 Allergy status to other drugs, medicaments and biological substances; Z90.49 Acquired absence of other specified parts of digestive tract; Z87.891 Personal history of nicotine dependence; Z82.49 Family history of ischemic heart disease and other diseases of the circulatory system; Z79.899 Other long term (current) drug therapy; Z98.51 Tubal ligation status; Z68.31 Body mass index [BMI] 31.0-31.9, adult

== ENCOUNTER → 2021-11-13 | Outpatient (CLI) | payer OTHER ==
[~2021-11-13] MED LIST changes: +AMLODIPINE BESY10 MG PO; +ATENOLOL25 MG PO; +DAILY VALUE1 EACH PO; +GABAPENTIN100 M2 PO; +LISINOPRIL20 MG PO; +MECLIZINE HYD12.5 MG PO; +VITAMIN B-121000 MC1 SL; +VITAMIN D3125 MC1 PO; +ZOFRAN4 MG PO
[2021-11-13 12:57] LABS: BASO % 0.4 % (0.0-1.0); EOS # 0.1 10*3/uL (0.0-0.4); EOS % 2.4 % (1.0-4.0); HEMATOCRIT 45.3 % (37.0-47.0); LYMPH # 1.5 10*3/uL (1.3-4.4); MEAN CORPUSCULAR HGB 28.3 pg (27.0-31.0); MEAN CORPUSCULAR HGB CONC 32.2 g/dl (33.0-37.0); MONO # 0.4 10*3/uL (0.1-1.0); MONO % 6.8 % (3.0-9.0); NEUT # 3.4 10*3/uL (2.3-7.9); PLATELET COUNT AUTOMATED 214 10*3/uL (130-400); RED BLOOD COUNT 5.15 10*6/uL (4.10-5.10); RED CELL DISTRI WIDTH 13.3 % (0-14.5); WHITE BLOOD COUNT 5.4 10*3/uL (4.8-10.8)
[2021-11-13 13:15] LABS: CREATININE 1.84 mg/dL (0.55-1.02); POTASSIUM 4.4 mmol/L (3.5-5.1); TOTAL PROTEIN 7.8 gm/dL (6.4-8.2)
== END | disposition home or self-care (01) ==
LOC: RESCLI 02:30
PROVIDERS: Student in an Organized Health Care Education/Training Program; ATTEND Internal Medicine
DX: R42 Dizziness and giddiness (principal); I10 Essential (primary) hypertension; Z79.899 Other long term (current) drug therapy

== ENCOUNTER → 2021-11-27 | Outpatient (CLI) | payer OTHER ==
[~2021-11-27] MED LIST changes: +MECLIZINE HYD12.5 MG PO
== END | disposition home or self-care (01) ==
LOC: RESCLI 02:16
PROVIDERS: ATTEND Internal Medicine
DX: Z09 Encounter for follow-up examination after completed treatment for conditions other than malignant neoplasm (principal); I12.9 Hypertensive chronic kidney disease with stage 1 through stage 4 chronic kidney disease, or unspecified chronic kidney disease; N18.30 Chronic kidney disease, stage 3 unspecified; K21.9 Gastro-esophageal reflux disease without esophagitis; E78.5 Hyperlipidemia, unspecified; E55.9 Vitamin D deficiency, unspecified; K56.609 Unspecified intestinal obstruction, unspecified as to partial versus complete obstruction; Z79.899 Other long term (current) drug therapy; Z88.8 Allergy status to other drugs, medicaments and biological substances

== ENCOUNTER → 2022-02-09 | Outpatient (CLI) | payer OTHER ==
[2022-02-09 14:38] LABS: BASO % 0.2 % (0.0-1.0); EOS # 0.1 10*3/uL (0.0-0.4); EOS % 2.4 % (1.0-4.0); HEMATOCRIT 40.2 % (37.0-47.0); LYMPH # 1.1 10*3/uL (1.3-4.4); LYMPH % 23.3 % (27.0-41.0); MEAN CELL VOLUME 87.8 fl (81.0-99.0); MEAN CORPUSCULAR HGB 28.4 pg (27.0-31.0); MEAN CORPUSCULAR HGB CONC 32.3 g/dl (33.0-37.0); MONO # 0.3 10*3/uL (0.1-1.0); MONO % 5.6 % (3.0-9.0); NEUT # 3.2 10*3/uL (2.3-7.9); NEUT % 68.1 % (47.0-73.0); PLATELET COUNT AUTOMATED 193 10*3/uL (130-400); RED BLOOD COUNT 4.58 10*6/uL (4.10-5.10); RED CELL DISTRI WIDTH 14.3 % (0-14.5); WHITE BLOOD COUNT 4.6 10*3/uL (4.8-10.8)
[2022-02-09 14:53] LABS: CREATININE 1.37 mg/dL (0.55-1.02); POTASSIUM 4.6 mmol/L (3.5-5.1)
[2022-02-09 15:10] LABS: VITAMIN D, 25-HYDROXY 75.5 ng/mL (30-100)
== END | disposition home or self-care (01) ==
LOC: LAB 13:55
PROVIDERS: ATTEND Internal Medicine Nephrology
DX: N18.31 Chronic kidney disease, stage 3a (principal); N25.81 Secondary hyperparathyroidism of renal origin; E55.9 Vitamin D deficiency, unspecified

== ENCOUNTER → 2022-03-02 | Outpatient (CLI) | payer OTHER | END | disposition home or self-care (01) | LOC: RESCLI 13:25 | PROVIDERS: ATTEND Internal Medicine | DX: I13.0 Hypertensive heart and chronic kidney disease with heart failure and stage 1 through stage 4 chronic kidney disease, or unspecified chronic kidney disease (principal); N18.30 Chronic kidney disease, stage 3 unspecified; K21.9 Gastro-esophageal reflux disease without esophagitis; R42 Dizziness and giddiness; E53.8 Deficiency of other specified B group vitamins; I50.30 Unspecified diastolic (congestive) heart failure; M85.80 Other specified disorders of bone density and structure, unspecified site; G60.9 Hereditary and idiopathic neuropathy, unspecified; J30.2 Other seasonal allergic rhinitis; H65.196 Other acute nonsuppurative otitis media, recurrent, bilateral; E78.2 Mixed hyperlipidemia; R25.2 Cramp and spasm; M17.0 Bilateral primary osteoarthritis of knee; Z79.899 Other long term (current) drug therapy; Z90.49 Acquired absence of other specified parts of digestive tract; Z87.891 Personal history of nicotine dependence; Z88.8 Allergy status to other drugs, medicaments and biological substances; Z88.0 Allergy status to penicillin ==

== ENCOUNTER → 2022-06-09 | Outpatient (CLI) | payer OTHER | END | disposition home or self-care (01) | LOC: RESCLI 02:19 | PROVIDERS: ATTEND Internal Medicine | DX: I13.0 Hypertensive heart and chronic kidney disease with heart failure and stage 1 through stage 4 chronic kidney disease, or unspecified chronic kidney disease (principal); I50.30 Unspecified diastolic (congestive) heart failure; N18.30 Chronic kidney disease, stage 3 unspecified; R42 Dizziness and giddiness; K21.9 Gastro-esophageal reflux disease without esophagitis; G62.9 Polyneuropathy, unspecified; E53.8 Deficiency of other specified B group vitamins; E55.9 Vitamin D deficiency, unspecified; J30.2 Other seasonal allergic rhinitis; K57.90 Diverticulosis of intestine, part unspecified, without perforation or abscess without bleeding; R53.83 Other fatigue; Z90.49 Acquired absence of other specified parts of digestive tract; Z98.890 Other specified postprocedural states; Z88.0 Allergy status to penicillin; Z88.2 Allergy status to sulfonamides; Z88.6 Allergy status to analgesic agent; Z88.1 Allergy status to other antibiotic agents; Z79.899 Other long term (current) drug therapy ==

== ENCOUNTER → 2022-08-03 | Outpatient (CLI) | payer OTHER ==
[2022-08-03 17:27] LABS: BASO % 0.2 % (0.0-1.0); EOS # 0.1 10*3/uL (0.0-0.4); EOS % 0.7 % (1.0-4.0); HEMATOCRIT 40.1 % (37.0-47.0); LYMPH # 1.5 10*3/uL (1.3-4.4); LYMPH % 17.4 % (27.0-41.0); MEAN CELL VOLUME 88.5 fl (81.0-99.0); MEAN CORPUSCULAR HGB 29.1 pg (27.0-31.0); MEAN CORPUSCULAR HGB CONC 32.9 g/dl (33.0-37.0); MEAN PLATELET VOLUME 9.9 fl (9.6-12.3); MONO # 0.8 10*3/uL (0.1-1.0); MONO % 9.2 % (3.0-9.0); NEUT % 72.1 % (47.0-73.0); PLATELET COUNT AUTOMATED 173 10*3/uL (130-400); RED BLOOD COUNT 4.53 10*6/uL (4.10-5.10); RED CELL DISTRI WIDTH 14.1 % (0-14.5); WHITE BLOOD COUNT 8.3 10*3/uL (4.8-10.8)
[2022-08-03 17:36] LABS: URINE CREATININE RANDOM 52.98 mg/dL
[2022-08-03 17:39] LABS: BILIRUBIN Negative (Negative); BLOOD Negative (Negative); CLARITY Clear (Clear); COLOR Yellow (Yellow); GLUCOSE Negative (Negative); KETONE Negative (Negative); SPECIFIC GRAVITY 1.005 (1.001-1.030)
[2022-08-03 17:40] LABS: LEUKO ESTERASE Trace (Negative); NITRITE Negative (Negative); RBC 0-2 rbc/hpf (0-2); UROBILINOGEN 0.2 E.U./dl (0.0-1.0)
[2022-08-03 17:43] LABS: CREATININE 1.64 mg/dL (0.55-1.02); POTASSIUM 3.5 mmol/L (3.4-5.1)
[2022-08-03 17:46] LABS: CREATININE 1.64 mg/dL (0.55-1.02); POTASSIUM 3.5 mmol/L (3.4-5.1); TOTAL PROTEIN 6.9 gm/dL (6.0-8.0)
[2022-08-03 18:05] LABS: VITAMIN D, 25-HYDROXY 55.8 ng/mL (30-100)
== END | disposition home or self-care (01) ==
LOC: LAB 16:54
PROVIDERS: Internal Medicine; ATTEND Internal Medicine Nephrology
DX: N18.31 Chronic kidney disease, stage 3a (principal); N25.81 Secondary hyperparathyroidism of renal origin; E55.9 Vitamin D deficiency, unspecified; R53.83 Other fatigue

== ENCOUNTER → 2022-09-08 | Outpatient (CLI) | payer OTHER, MEDICAID | END | disposition home or self-care (01) | LOC: CANPRECLI → RESCLI 01:11 | PROVIDERS: ATTEND Internal Medicine | DX: Z53.9 Procedure and treatment not carried out, unspecified reason (principal) ==

== ENCOUNTER → 2022-09-17 | Outpatient (CLI) | payer OTHER, MEDICAID | END | disposition home or self-care (01) | LOC: CT 09-10 13:00 | PROVIDERS: ATTEND Specialist | DX: H90.5 Unspecified sensorineural hearing loss (principal) ==

== ENCOUNTER 2022-09-21 11:01 | Emergency (ER) | payer OTHER ==
[~2022-09-21] VITALS: Wt 89.8 kg
[2022-09-21 11:45] LABS: BASO % 0.5 % (0.0-1.0); EOS # 0.1 10*3/uL (0.0-0.4); EOS % 3.1 % (1.0-4.0); HEMATOCRIT 41.7 % (37.0-47.0); LYMPH # 0.9 10*3/uL (1.3-4.4); LYMPH % 23.8 % (27.0-41.0); MEAN CELL VOLUME 88.7 fl (81.0-99.0); MEAN CORPUSCULAR HGB 29.1 pg (27.0-31.0); MEAN CORPUSCULAR HGB CONC 32.9 g/dl (33.0-37.0); MEAN PLATELET VOLUME 9.9 fl (9.6-12.3); MONO # 0.3 10*3/uL (0.1-1.0); MONO % 7.8 % (3.0-9.0); NEUT # 2.5 10*3/uL (2.3-7.9); NEUT % 64.5 % (47.0-73.0); PLATELET COUNT AUTOMATED 199 10*3/uL (130-400); RED CELL DISTRI WIDTH 13.3 % (0-14.5); WHITE BLOOD COUNT 3.8 10*3/uL (4.8-10.8)
[2022-09-21 12:04] LABS: POTASSIUM 3.9 mmol/L (3.4-5.1); TOTAL PROTEIN 6.9 gm/dL (6.0-8.0)
[2022-09-21 13:11] VITALS: BP 159/57
[2022-09-21 14:09] LABS: BILIRUBIN Negative (Negative); BLOOD Negative (Negative); CLARITY Clear (Clear); COLOR Yellow (Yellow); GLUCOSE Negative (Negative); KETONE Trace (Negative); LEUKO ESTERASE Negative (Negative); NITRITE Negative (Negative); PH 5.5 (4.5-8.0); UROBILINOGEN 0.2 E.U./dl (0.0-1.0)
[2022-09-21 14:59] LABS: BACTERIA 1+; HYALINE CAST 0-2
[2022-09-21] MEDS ORDERED: ZITHROMAX250 MG PO (16:23)
== END 2022-09-21 16:26 | disposition home or self-care (01) ==
LOC: ED 11:01
PROVIDERS: Nurse Practitioner Family
DX: R30.0 Dysuria (principal); Z88.0 Allergy status to penicillin; Z88.2 Allergy status to sulfonamides; Z88.1 Allergy status to other antibiotic agents; Z88.8 Allergy status to other drugs, medicaments and biological substances; Z90.49 Acquired absence of other specified parts of digestive tract; Z98.890 Other specified postprocedural states; Z98.51 Tubal ligation status; Z87.891 Personal history of nicotine dependence

== ENCOUNTER 2022-10-04 15:22 | Emergency (ER) | payer OTHER ==
[~2022-10-04] VITALS: Ht 170.1 cm; Wt 89.8 kg
[~2022-10-04 15:22] MED LIST changes: +ZITHROMAX250 MG PO
[2022-10-04 15:33] VITALS: BP 150/70
[2022-10-04 16:30] LABS: BILIRUBIN Negative (Negative); BLOOD 3+ (Negative); CLARITY Cloudy (Clear); COLOR Yellow (Yellow); GLUCOSE Negative (Negative); KETONE Negative (Negative); LEUKO ESTERASE 3+ (Negative); NITRITE Positive (Negative); PH 5.5 (4.5-8.0); UROBILINOGEN 0.2 E.U./dl (0.0-1.0)
[2022-10-04 16:43] LABS: BACTERIA 2+; RBC TNTC rbc/hpf (0-2); WBC TNTC wbc/hpf (0-5)
[2022-10-04] MEDS ORDERED: CIPRO500 MG PO (16:56)
== END 2022-10-04 17:00 | disposition home or self-care (01) ==
LOC: ED 15:22
PROVIDERS: Internal Medicine
DX: N39.0 Urinary tract infection, site not specified (principal); Z88.0 Allergy status to penicillin; Z88.2 Allergy status to sulfonamides; Z88.8 Allergy status to other drugs, medicaments and biological substances; Z90.49 Acquired absence of other specified parts of digestive tract; Z98.890 Other specified postprocedural states; Z98.51 Tubal ligation status; Z87.891 Personal history of nicotine dependence

== ENCOUNTER → 2022-10-21 | Outpatient (CLI) | payer OTHER ==
[2022-10-21 11:30] LABS: POTASSIUM 3.9 mmol/L (3.4-5.1)
== END | disposition home or self-care (01) ==
LOC: LAB 10:51
PROVIDERS: Internal Medicine Nephrology; ATTEND Urology
DX: N18.31 Chronic kidney disease, stage 3a (principal)

== ENCOUNTER 2023-01-15 14:46 | Emergency (ER) | payer OTHER ==
[~2023-01-15] VITALS: Ht 170.1 cm; Wt 90.7 kg
[~2023-01-15 14:46] MED LIST changes: +METRONIDAZOLE500 M1 PO
[2023-01-15 15:41] LABS: BASO % 0.3 % (0.0-1.0); EOS # 0.1 10*3/uL (0.0-0.4); EOS % 1.8 % (1.0-4.0); HEMATOCRIT 44.2 % (37.0-47.0); LYMPH # 1.3 10*3/uL (1.3-4.4); LYMPH % 19.5 % (27.0-41.0); MEAN CORPUSCULAR HGB 29.1 pg (27.0-31.0); MEAN PLATELET VOLUME 9.7 fl (9.6-12.3); MONO # 0.3 10*3/uL (0.1-1.0); MONO % 4.3 % (3.0-9.0); PLATELET COUNT AUTOMATED 181 10*3/uL (130-400); RED BLOOD COUNT 5.02 10*6/uL (4.10-5.10); RED CELL DISTRI WIDTH 13.8 % (0-14.5); WHITE BLOOD COUNT 6.8 10*3/uL (4.8-10.8)
[2023-01-15 15:52] LABS: ACT PARTIAL THROMBO TIME 28.8 SECONDS (20.0-32.1)
[2023-01-15 16:04] LABS: ALKALINE PHOSPHATASE 69 U/L (46-116); BUN 10 mg/dl (9-23); CHLORIDE 103 mmol/L (98-107); LIPASE 37 U/L (12-53); SGPT/ALT 10 U/L (10-49)
[2023-01-15 17:29] LABS: BILIRUBIN Negative (Negative); BLOOD Negative (Negative); CLARITY Clear (Clear); COLOR Yellow (Yellow); GLUCOSE Negative (Negative); KETONE Negative (Negative); LEUKO ESTERASE Trace (Negative); NITRITE Negative (Negative); UROBILINOGEN 0.2 E.U./dl (0.0-1.0)
[2023-01-15 17:34] LABS: BACTERIA 1+; EPITHELIAL CELLS 0-2; RBC 0-2 rbc/hpf (0-2)
[2023-01-15 19:06] VITALS: BP 114/74
[2023-01-15] MEDS ORDERED: MACROBID100 M1 PO (19:26)
[2023-01-15] MEDS ORDERED: METRONIDAZOLE500 M1 PO (19:26)
== END 2023-01-15 19:35 | disposition home or self-care (01) ==
LOC: ED 14:46
PROVIDERS: Physician Assistant
DX: K57.32 Diverticulitis of large intestine without perforation or abscess without bleeding (principal); N39.0 Urinary tract infection, site not specified; R10.13 Epigastric pain; R11.0 Nausea; K21.9 Gastro-esophageal reflux disease without esophagitis; I10 Essential (primary) hypertension; Z88.0 Allergy status to penicillin; Z88.2 Allergy status to sulfonamides; Z88.8 Allergy status to other drugs, medicaments and biological substances; Z90.49 Acquired absence of other specified parts of digestive tract; Z98.890 Other specified postprocedural states; Z98.51 Tubal ligation status; Z87.891 Personal history of nicotine dependence

== ENCOUNTER → 2023-02-08 | Outpatient (CLI) | payer OTHER ==
[~2023-02-08] MED LIST changes: +MACROBID100 M1 PO
[2023-02-08 15:21] LABS: BASO % 0.5 % (0.0-1.0); EOS # 0.1 10*3/uL (0.0-0.4); EOS % 3.1 % (1.0-4.0); HEMATOCRIT 41.7 % (37.0-47.0); LYMPH # 1.3 10*3/uL (1.3-4.4); LYMPH % 32.7 % (27.0-41.0); MEAN CELL VOLUME 87.2 fl (81.0-99.0); MEAN CORPUSCULAR HGB 28.9 pg (27.0-31.0); MEAN CORPUSCULAR HGB CONC 33.1 g/dl (33.0-37.0); MEAN PLATELET VOLUME 10.3 fl (9.6-12.3); MONO # 0.3 10*3/uL (0.1-1.0); NEUT # 2.2 10*3/uL (2.3-7.9); NEUT % 56.4 % (47.0-73.0); PLATELET COUNT AUTOMATED 189 10*3/uL (130-400); RED BLOOD COUNT 4.78 10*6/uL (4.10-5.10); RED CELL DISTRI WIDTH 13.2 % (0-14.5); WHITE BLOOD COUNT 3.9 10*3/uL (4.8-10.8)
[2023-02-08 15:57] LABS: VITAMIN D, 25-HYDROXY 52.1 ng/mL (30-100)
== END | disposition home or self-care (01) ==
LOC: LAB 14:24
PROVIDERS: ATTEND Internal Medicine Nephrology
DX: N18.31 Chronic kidney disease, stage 3a (principal); E55.9 Vitamin D deficiency, unspecified; N25.81 Secondary hyperparathyroidism of renal origin

== ENCOUNTER → 2023-03-26 | Outpatient (CLI) | payer OTHER | END | disposition home or self-care (01) | LOC: RESCLI 03-25 00:52 | PROVIDERS: ATTEND Internal Medicine | DX: G62.9 Polyneuropathy, unspecified (principal); R91.1 Solitary pulmonary nodule; I13.0 Hypertensive heart and chronic kidney disease with heart failure and stage 1 through stage 4 chronic kidney disease, or unspecified chronic kidney disease; I50.30 Unspecified diastolic (congestive) heart failure; N18.30 Chronic kidney disease, stage 3 unspecified; E55.9 Vitamin D deficiency, unspecified; M85.80 Other specified disorders of bone density and structure, unspecified site; Z88.2 Allergy status to sulfonamides; K21.9 Gastro-esophageal reflux disease without esophagitis; R42 Dizziness and giddiness; Z88.8 Allergy status to other drugs, medicaments and biological substances; J30.2 Other seasonal allergic rhinitis; Z90.49 Acquired absence of other specified parts of digestive tract; Z98.890 Other specified postprocedural states; Z82.49 Family history of ischemic heart disease and other diseases of the circulatory system; Z79.899 Other long term (current) drug therapy ==

== ENCOUNTER → 2023-04-16 | Outpatient (CLI) | payer OTHER | END | disposition home or self-care (01) | LOC: RAD 04-05 10:30 → CT 04-12 11:00 → RAD 10:30 | PROVIDERS: ATTEND Internal Medicine | DX: J43.2 Centrilobular emphysema (principal); M81.0 Age-related osteoporosis without current pathological fracture; M85.80 Other specified disorders of bone density and structure, unspecified site; R91.1 Solitary pulmonary nodule ==

== ENCOUNTER → 2023-07-13 | Outpatient (CLI) | payer OTHER | END | disposition home or self-care (01) | LOC: RESCLI 03:41 | PROVIDERS: ATTEND Family Medicine | DX: I13.0 Hypertensive heart and chronic kidney disease with heart failure and stage 1 through stage 4 chronic kidney disease, or unspecified chronic kidney disease (principal); I50.30 Unspecified diastolic (congestive) heart failure; E53.8 Deficiency of other specified B group vitamins; I10 Essential (primary) hypertension; E55.9 Vitamin D deficiency, unspecified; R42 Dizziness and giddiness; J30.2 Other seasonal allergic rhinitis; K21.9 Gastro-esophageal reflux disease without esophagitis; G62.9 Polyneuropathy, unspecified; R55 Syncope and collapse; I73.9 Peripheral vascular disease, unspecified; E78.5 Hyperlipidemia, unspecified; N18.30 Chronic kidney disease, stage 3 unspecified; Z79.899 Other long term (current) drug therapy; Z88.8 Allergy status to other drugs, medicaments and biological substances; Z88.0 Allergy status to penicillin ==

== ENCOUNTER → 2023-07-28 | Outpatient (CLI) | payer OTHER | END | disposition home or self-care (01) | LOC: US 00:48 | PROVIDERS: ATTEND Internal Medicine | DX: I65.23 Occlusion and stenosis of bilateral carotid arteries (principal); I73.9 Peripheral vascular disease, unspecified; R55 Syncope and collapse ==

== ENCOUNTER → 2023-10-13 | Outpatient (CLI) | payer OTHER ==
[~2023-10-13] MED LIST changes: +CIPRO250 MG PO
[2023-10-13 12:19] LABS: BILIRUBIN Negative (Negative); BLOOD Negative (Negative); CLARITY Clear (Clear); COLOR Yellow (Yellow); GLUCOSE Negative (Negative); KETONE Negative (Negative); LEUKO ESTERASE 1+ (Negative); NITRITE Negative (Negative); PH 5.5 (4.5-8.0); SPECIFIC GRAVITY <= 1.005 (1.001-1.030); UROBILINOGEN 0.2 E.U./dl (0.0-1.0)
[2023-10-13 12:38] LABS: RBC 0-2 rbc/hpf (0-2)
== END | disposition home or self-care (01) ==
LOC: RESCLI 04:27
PROVIDERS: Internal Medicine; ATTEND Internal Medicine
DX: N30.00 Acute cystitis without hematuria (principal); I12.9 Hypertensive chronic kidney disease with stage 1 through stage 4 chronic kidney disease, or unspecified chronic kidney disease; N18.30 Chronic kidney disease, stage 3 unspecified; K21.9 Gastro-esophageal reflux disease without esophagitis; E78.5 Hyperlipidemia, unspecified; E55.9 Vitamin D deficiency, unspecified; E53.8 Deficiency of other specified B group vitamins; K57.30 Diverticulosis of large intestine without perforation or abscess without bleeding; G62.9 Polyneuropathy, unspecified; Z79.899 Other long term (current) drug therapy; Z88.0 Allergy status to penicillin; Z88.8 Allergy status to other drugs, medicaments and biological substances; Z87.891 Personal history of nicotine dependence; Z90.49 Acquired absence of other specified parts of digestive tract; Z98.890 Other specified postprocedural states

== ENCOUNTER 2023-12-21 12:17 | Emergency (ER) | payer OTHER ==
[~2023-12-21] VITALS: Ht 170.1 cm; Wt 90.7 kg
[2023-12-21] MEDS ORDERED: FUROSEMIDE20 M1 PO (12:37)
[2023-12-21] MEDS ORDERED: MAGNESIUM OXID400 MG PO (12:37)
[2023-12-21 13:01] LABS: BASO % 0.2 % (0.0-1.0); EOS # 0.1 10*3/uL (0.0-0.4); EOS % 1.6 % (1.0-4.0); HEMATOCRIT 41.7 % (37.0-47.0); LYMPH # 1.3 10*3/uL (1.3-4.4); LYMPH % 23.1 % (27.0-41.0); MEAN CELL VOLUME 88.7 fl (81.0-99.0); MEAN CORPUSCULAR HGB 29.6 pg (27.0-31.0); MEAN CORPUSCULAR HGB CONC 33.3 g/dl (33.0-37.0); MONO # 0.3 10*3/uL (0.1-1.0); MONO % 5.2 % (3.0-9.0); NEUT % 69.7 % (47.0-73.0); PLATELET COUNT AUTOMATED 160 10*3/uL (130-400); RED CELL DISTRI WIDTH 13.2 % (0-14.5); WHITE BLOOD COUNT 5.8 10*3/uL (4.8-10.8)
[2023-12-21 13:13] LABS: ACT PARTIAL THROMBO TIME 27.2 SECONDS (20.0-32.1)
[2023-12-21 13:22] LABS: ALKALINE PHOSPHATASE 86 U/L (46-116); BUN 11 mg/dl (9-23); CHLORIDE 105 mmol/L (98-107); LIPASE 44 U/L (12-53); POTASSIUM 3.7 mmol/L (3.4-5.1); TOTAL PROTEIN 6.8 gm/dL (6.0-8.0)
[2023-12-21 13:22] LABS: BILIRUBIN Negative (Negative); BLOOD 3+ (Negative); CLARITY Cloudy (Clear); COLOR Yellow (Yellow); GLUCOSE Negative (Negative); KETONE Negative (Negative); LEUKO ESTERASE 3+ (Negative); NITRITE Negative (Negative); SPECIFIC GRAVITY 1.015 (1.001-1.030)
[2023-12-21 13:24] LABS: SGPT/ALT < 7 U/L (5-49)
[2023-12-21 13:32] LABS: WBC TNTC wbc/hpf (0-5)
[2023-12-21 13:33] VITALS: BP 193/89
[2023-12-21] MEDS ORDERED: CIPRO500 MG PO (15:35)
== END 2023-12-21 15:47 | disposition home or self-care (01) ==
LOC: ED 12:17
PROVIDERS: Internal Medicine
DX: N39.0 Urinary tract infection, site not specified (principal); I10 Essential (primary) hypertension; K21.9 Gastro-esophageal reflux disease without esophagitis; Z88.0 Allergy status to penicillin; Z88.2 Allergy status to sulfonamides; Z88.8 Allergy status to other drugs, medicaments and biological substances; Z98.890 Other specified postprocedural states; Z90.49 Acquired absence of other specified parts of digestive tract; Z98.51 Tubal ligation status; Z87.891 Personal history of nicotine dependence

== ENCOUNTER → 2024-02-09 | Outpatient (CLI) | payer OTHER ==
[~2024-02-09] MED LIST changes: +FUROSEMIDE20 M1 PO; +MAGNESIUM OXID400 MG PO
== END | disposition home or self-care (01) ==
LOC: RESCLI 01:47
PROVIDERS: ATTEND Internal Medicine
DX: I13.0 Hypertensive heart and chronic kidney disease with heart failure and stage 1 through stage 4 chronic kidney disease, or unspecified chronic kidney disease (principal); I50.30 Unspecified diastolic (congestive) heart failure; N18.30 Chronic kidney disease, stage 3 unspecified; J30.2 Other seasonal allergic rhinitis; E53.8 Deficiency of other specified B group vitamins; R42 Dizziness and giddiness; E78.5 Hyperlipidemia, unspecified; E55.9 Vitamin D deficiency, unspecified; K21.9 Gastro-esophageal reflux disease without esophagitis; G62.9 Polyneuropathy, unspecified; Z79.899 Other long term (current) drug therapy; Z98.890 Other specified postprocedural states; Z88.8 Allergy status to other drugs, medicaments and biological substances

== ENCOUNTER → 2024-07-06 | Outpatient (CLI) | payer OTHER ==
[2024-07-06 14:05] LABS: BASO % 0.3 % (0.0-1.0); EOS # 0.1 10*3/uL (0.0-0.4); EOS % 2.2 % (1.0-4.0); HEMATOCRIT 40.2 % (37.0-47.0); MEAN CELL VOLUME 89.1 fl (81.0-99.0); MEAN CORPUSCULAR HGB 30.6 pg (27.0-31.0); MEAN CORPUSCULAR HGB CONC 34.3 g/dl (33.0-37.0); MEAN PLATELET VOLUME 9.9 fl (9.6-12.3); MONO # 0.2 10*3/uL (0.1-1.0); NEUT % 53.6 % (47.0-73.0); PLATELET COUNT AUTOMATED 153 10*3/uL (130-400); RED BLOOD COUNT 4.51 10*6/uL (4.10-5.10); RED CELL DISTRI WIDTH 13.1 % (0-14.5); WHITE BLOOD COUNT 3.7 10*3/uL (4.8-10.8)
[2024-07-06 14:48] LABS: ALKALINE PHOSPHATASE 82 U/L (46-116); BUN 12 mg/dl (9-23); CHLORIDE 103 mmol/L (98-107); CHOLESTEROL 202 mg/dL (<200); LDL CHOLESTEROL 109 mg/dL (9-159); POTASSIUM 4.1 mmol/L (3.4-5.1); SGPT/ALT < 7 U/L (5-49); TRIGLYCERIDES 253 mg/dl (<150)
== END | disposition home or self-care (01) ==
LOC: LAB 13:44
PROVIDERS: ATTEND Nurse Practitioner Family
DX: Z13.29 Encounter for screening for other suspected endocrine disorder (principal); Z13.1 Encounter for screening for diabetes mellitus; Z12.31 Encounter for screening mammogram for malignant neoplasm of breast; R91.1 Solitary pulmonary nodule; K21.9 Gastro-esophageal reflux disease without esophagitis; I10 Essential (primary) hypertension; Z76.89 Persons encountering health services in other specified circumstances

== ENCOUNTER → 2024-07-13 | Outpatient (CLI) | payer OTHER | END | disposition home or self-care (01) | LOC: RHCWE 17:11 | PROVIDERS: ATTEND Nurse Practitioner Family | DX: Z87.440 Personal history of urinary (tract) infections (principal) ==

== ENCOUNTER → 2024-11-08 | Outpatient (CLI) | payer OTHER ==
[2024-11-08 12:55] LABS: BASO % 0.2 % (0.0-1.0); EOS # 0.1 10*3/uL (0.0-0.4); EOS % 2.6 % (1.0-4.0); HEMATOCRIT 41.8 % (37.0-47.0); MEAN CELL VOLUME 88.4 fl (81.0-99.0); MEAN CORPUSCULAR HGB 29.4 pg (27.0-31.0); MEAN CORPUSCULAR HGB CONC 33.3 g/dl (33.0-37.0); MEAN PLATELET VOLUME 9.8 fl (9.6-12.3); MONO # 0.2 10*3/uL (0.1-1.0); MONO % 5.7 % (3.0-9.0); NEUT # 2.5 10*3/uL (2.3-7.9); NEUT % 59.4 % (47.0-73.0); PLATELET COUNT AUTOMATED 175 10*3/uL (130-400); RED BLOOD COUNT 4.73 10*6/uL (4.10-5.10); RED CELL DISTRI WIDTH 13.7 % (0-14.5); WHITE BLOOD COUNT 4.2 10*3/uL (4.8-10.8)
[2024-11-08 13:03] LABS: BILIRUBIN Negative (Negative); BLOOD 2+ (Negative); CLARITY Cloudy (Clear); COLOR Yellow (Yellow); GLUCOSE Negative (Negative); KETONE Negative (Negative); LEUKO ESTERASE 3+ (Negative); NITRITE Negative (Negative); UROBILINOGEN 0.2 E.U./dl (0.0-1.0)
[2024-11-08 13:35] LABS: POTASSIUM 3.8 mmol/L (3.4-5.1)
[2024-11-08 13:37] LABS: VITAMIN D, 25-HYDROXY 79.8 ng/mL (30-100)
[2024-11-08 13:41] LABS: BACTERIA TRACE; WBC TNTC wbc/hpf (0-5)
== END | disposition home or self-care (01) ==
LOC: LAB 12:18
PROVIDERS: ATTEND Internal Medicine Nephrology
DX: E55.9 Vitamin D deficiency, unspecified (principal); N18.30 Chronic kidney disease, stage 3 unspecified

== ENCOUNTER 2024-11-21 12:23 | Emergency (ER) | payer OTHER ==
[~2024-11-21] VITALS: Ht 170.1 cm; Wt 90.7 kg
[2024-11-21] MEDS ORDERED: amLODIPine besylate 10 MG TAB PO ONE (13:25)
[2024-11-21 14:00] VITALS: BP 179/67
[2024-11-21] MEDS ORDERED: AMLODIPINE BESYL5 MG PO (14:40)
[2024-11-21] MEDS ORDERED: GABAPENTIN100 M2 PO (16:55)
== END 2024-11-21 15:40 | disposition home or self-care (01) ==
LOC: ED 12:23
DX: I12.9 Hypertensive chronic kidney disease with stage 1 through stage 4 chronic kidney disease, or unspecified chronic kidney disease (principal); N18.30 Chronic kidney disease, stage 3 unspecified; E78.5 Hyperlipidemia, unspecified; K21.9 Gastro-esophageal reflux disease without esophagitis; Z79.899 Other long term (current) drug therapy; Z88.0 Allergy status to penicillin; Z88.2 Allergy status to sulfonamides; Z88.8 Allergy status to other drugs, medicaments and biological substances; Z90.49 Acquired absence of other specified parts of digestive tract; Z90.89 Acquired absence of other organs; Z98.51 Tubal ligation status; Z98.890 Other specified postprocedural states

== ENCOUNTER 2025-02-14 13:37 | Emergency (ER) | payer OTHER ==
[~2025-02-14] VITALS: Wt 90.7 kg
[2025-02-14 14:13] VITALS: BP 188/88
[2025-02-14 14:39] LABS: BASO % 0.2 % (0.0-1.0); EOS # 0.1 10*3/uL (0.0-0.4); EOS % 2.5 % (1.0-4.0); HEMATOCRIT 39.7 % (37.0-47.0); MEAN CELL VOLUME 89.6 fl (81.0-99.0); MEAN CORPUSCULAR HGB 29.8 pg (27.0-31.0); MEAN CORPUSCULAR HGB CONC 33.2 g/dl (33.0-37.0); MEAN PLATELET VOLUME 9.6 fl (9.6-12.3); MONO # 0.3 10*3/uL (0.1-1.0); MONO % 6.7 % (3.0-9.0); NEUT # 2.6 10*3/uL (2.3-7.9); NEUT % 58.7 % (47.0-73.0); PLATELET COUNT AUTOMATED 202 10*3/uL (130-400); RED BLOOD COUNT 4.43 10*6/uL (4.10-5.10); RED CELL DISTRI WIDTH 12.6 % (0-14.5); WHITE BLOOD COUNT 4.5 10*3/uL (4.8-10.8)
[2025-02-14 14:59] LABS: POTASSIUM 3.9 mmol/L (3.4-5.1)
[2025-02-14 15:13] LABS: BILIRUBIN 1+ (Negative); BLOOD Negative (Negative); CLARITY Cloudy (Clear); COLOR Dark Yellow (Yellow); GLUCOSE Negative (Negative); KETONE Trace (Negative); LEUKO ESTERASE 2+ (Negative); NITRITE Negative (Negative); SPECIFIC GRAVITY 1.025 (1.001-1.030)
[2025-02-14 15:21] LABS: BACTERIA 1+; EPITHELIAL CELLS 21-30; MUCOUS TRACE; RBC 0-2 rbc/hpf (0-2)
[2025-02-14] MEDS ORDERED: CIPRO500 MG PO (16:36)
[2025-02-14] MEDS ORDERED: Ciprofloxacin Hydrochloride 500 MG TAB PO ONE ×2 (16:40)
== END 2025-02-14 16:59 | disposition home or self-care (01) ==
LOC: ED 13:37
PROVIDERS: Nurse Practitioner Family
DX: N39.0 Urinary tract infection, site not specified (principal); I13.0 Hypertensive heart and chronic kidney disease with heart failure and stage 1 through stage 4 chronic kidney disease, or unspecified chronic kidney disease; E11.22 Type 2 diabetes mellitus with diabetic chronic kidney disease; N18.30 Chronic kidney disease, stage 3 unspecified; I50.32 Chronic diastolic (congestive) heart failure; E78.5 Hyperlipidemia, unspecified; K21.9 Gastro-esophageal reflux disease without esophagitis; E11.40 Type 2 diabetes mellitus with diabetic neuropathy, unspecified; Z88.0 Allergy status to penicillin; Z88.2 Allergy status to sulfonamides; Z90.49 Acquired absence of other specified parts of digestive tract; Z88.1 Allergy status to other antibiotic agents; Z88.8 Allergy status to other drugs, medicaments and biological substances; Z79.899 Other long term (current) drug therapy; Z98.890 Other specified postprocedural states; Z87.891 Personal history of nicotine dependence

== ENCOUNTER 2025-03-10 15:00 | Emergency (ER) | payer OTHER ==
[~2025-03-10] VITALS: Ht 170.1 cm; Wt 90.7 kg
[2025-03-10 15:48] LABS: BILIRUBIN Negative (Negative); BLOOD Trace-Lysed (Negative); CLARITY Clear (Clear); COLOR Yellow (Yellow); KETONE Negative (Negative); LEUKO ESTERASE 2+ (Negative); NITRITE Negative (Negative); PH 5.0 (4.5-8.0); SPECIFIC GRAVITY <= 1.005 (1.001-1.030); UROBILINOGEN 0.2 E.U./dl (0.0-1.0)
[2025-03-10 15:57] LABS: BACTERIA 2+; WBC 31-40 wbc/hpf (0-5)
[2025-03-10] MEDS ORDERED: Nitrofurantoin Monohydrate/N 100 MG CAP PO ONE (17:00)
[2025-03-10] MEDS ORDERED: MACROBID100 M1 PO (17:01)
== END 2025-03-10 18:53 | disposition home or self-care (01) ==
LOC: ED 15:00
PROVIDERS: Nurse Practitioner Family
DX: N30.01 Acute cystitis with hematuria (principal); Z88.0 Allergy status to penicillin; Z88.2 Allergy status to sulfonamides; Z88.1 Allergy status to other antibiotic agents; Z88.8 Allergy status to other drugs, medicaments and biological substances; Z79.899 Other long term (current) drug therapy; Z90.49 Acquired absence of other specified parts of digestive tract; Z98.890 Other specified postprocedural states; Z87.891 Personal history of nicotine dependence

== ENCOUNTER → 2025-06-19 | Outpatient (CLI) | payer OTHER ==
[~2025-06-19] MED LIST changes: +ASPIRIN ADULT L81 M2 PO; +ATORVASTATIN CA40 M1 PO; +CIPROFLOXACIN250 MG PO; +METOPROLOL SUCC25 M2 PO
== END | disposition home or self-care (01) ==
LOC: RESCLI 01:27
PROVIDERS: ATTEND Student in an Organized Health Care Education/Training Program
DX: I12.9 Hypertensive chronic kidney disease with stage 1 through stage 4 chronic kidney disease, or unspecified chronic kidney disease (principal); N18.30 Chronic kidney disease, stage 3 unspecified; I25.10 Atherosclerotic heart disease of native coronary artery without angina pectoris; E78.5 Hyperlipidemia, unspecified; E56.9 Vitamin deficiency, unspecified; K21.9 Gastro-esophageal reflux disease without esophagitis; J30.9 Allergic rhinitis, unspecified; G62.9 Polyneuropathy, unspecified; R42 Dizziness and giddiness; Z98.890 Other specified postprocedural states; Z79.899 Other long term (current) drug therapy

== ENCOUNTER 2025-06-25 13:54 | Emergency (ER) | payer OTHER ==
[~2025-06-25] VITALS: Ht 170.1 cm; Wt 90.7 kg
[2025-06-25 14:09] VITALS: BP 178/62
[2025-06-25 14:47] LABS: BASO # 0.0 10*3/uL (0.0-0.1); BASO % 0.4 % (0.0-1.0); EOS # 0.2 10*3/uL (0.0-0.4); EOS % 2.8 % (1.0-4.0); MEAN CELL VOLUME 91.4 fl (81.0-99.0); MEAN CORPUSCULAR HGB 29.5 pg (27.0-31.0); MEAN PLATELET VOLUME 9.6 fl (9.6-12.3); MONO # 0.4 10*3/uL (0.1-1.0); MONO % 6.5 % (3.0-9.0); NEUT # 3.9 10*3/uL (2.3-7.9); NEUT % 68.6 % (47.0-73.0); NUCLEATED RED BLOOD CELL 0.0 % (0.0-0.0); NUCLEATED RED BLOOD CELL 0.0 10*3/uL (0.0-0.0); PLATELET COUNT AUTOMATED 183 10*3/uL (130-400); RED CELL DISTRI WIDTH 13.6 % (0-14.5)
[2025-06-25 15:06] LABS: BUN 20.0 mg/dl (9-23)
[2025-06-25 15:37] LABS: BILIRUBIN Negative (Negative); BLOOD 3+ (Negative); CLARITY Cloudy (Clear); COLOR Yellow (Yellow); KETONE Negative (Negative); LEUKO ESTERASE 3+ (Negative); NITRITE Negative (Negative); PH 6.0 (4.5-8.0); SPECIFIC GRAVITY <= 1.005 (1.001-1.030); UROBILINOGEN 0.2 E.U./dl (0.0-1.0)
[2025-06-25 15:56] LABS: BACTERIA 2+; EPITHELIAL CELLS 16-20; RBC 21-30 rbc/hpf (0-2); WBC TNTC wbc/hpf (0-5)
[2025-06-25] MEDS ORDERED: OMNICEF300 MG PO (16:26)
== END 2025-06-25 16:28 | disposition home or self-care (01) ==
LOC: ED 13:54
PROVIDERS: Nurse Practitioner Family
DX: N39.0 Urinary tract infection, site not specified (principal); K21.9 Gastro-esophageal reflux disease without esophagitis; E78.5 Hyperlipidemia, unspecified; I12.9 Hypertensive chronic kidney disease with stage 1 through stage 4 chronic kidney disease, or unspecified chronic kidney disease; N18.30 Chronic kidney disease, stage 3 unspecified; Z87.891 Personal history of nicotine dependence; Z98.890 Other specified postprocedural states; Z87.440 Personal history of urinary (tract) infections; Z88.0 Allergy status to penicillin; Z88.2 Allergy status to sulfonamides; Z88.8 Allergy status to other drugs, medicaments and biological substances

== ENCOUNTER → 2025-07-05 | Outpatient (CLI) | payer OTHER ==
[2025-07-05 15:56] LABS: BASO # 0.0 10*3/uL (0.0-0.1); BASO % 0.4 % (0.0-1.0); EOS # 0.1 10*3/uL (0.0-0.4); EOS % 2.5 % (1.0-4.0); MEAN CELL VOLUME 90.1 fl (81.0-99.0); MEAN CORPUSCULAR HGB 29.7 pg (27.0-31.0); MEAN PLATELET VOLUME 9.5 fl (9.6-12.3); MONO # 0.2 10*3/uL (0.1-1.0); MONO % 4.9 % (3.0-9.0); NEUT # 2.9 10*3/uL (2.3-7.9); NEUT % 61.2 % (47.0-73.0); NUCLEATED RED BLOOD CELL 0.0 % (0.0-0.0); NUCLEATED RED BLOOD CELL 0.0 10*3/uL (0.0-0.0); PLATELET COUNT AUTOMATED 193 10*3/uL (130-400); RED CELL DISTRI WIDTH 13.6 % (0-14.5)
[2025-07-05 16:39] LABS: BUN 17.0 mg/dl (9-23)
[2025-07-05 16:42] LABS: VITAMIN D, 25-HYDROXY 63.7 ng/mL (30-100)
== END | disposition home or self-care (01) ==
LOC: LAB 15:25
PROVIDERS: ATTEND Internal Medicine Nephrology
DX: E55.9 Vitamin D deficiency, unspecified (principal); N18.30 Chronic kidney disease, stage 3 unspecified

== ENCOUNTER → 2025-07-06 | Outpatient (CLI) | payer OTHER ==
[2025-07-06 15:26] LABS: BILIRUBIN Negative (Negative); BLOOD Negative (Negative); CLARITY Clear (Clear); COLOR Yellow (Yellow); KETONE Trace (Negative); LEUKO ESTERASE Negative (Negative); NITRITE Negative (Negative); PH 5.5 (4.5-8.0); SPECIFIC GRAVITY >= 1.030 (1.001-1.030); UROBILINOGEN 1.0 E.U./dl (0.0-1.0)
[2025-07-06 15:34] LABS: BACTERIA 1+; MUCOUS 1+; RBC 0-2 rbc/hpf (0-2)
== END | disposition home or self-care (01) ==
LOC: LAB 15:00
PROVIDERS: ATTEND Internal Medicine Nephrology
DX: E55.9 Vitamin D deficiency, unspecified (principal); N18.30 Chronic kidney disease, stage 3 unspecified

== ENCOUNTER 2025-07-15 12:31 | Emergency (ER) | payer OTHER ==
[~2025-07-15] VITALS: Ht 170.1 cm; Wt 90.7 kg
[2025-07-15 12:57] VITALS: BP 179/80
[2025-07-15 13:57] LABS: BILIRUBIN Negative (Negative); BLOOD 3+ (Negative); CLARITY Turbid (Clear); COLOR Orange (Yellow); KETONE Negative (Negative); LEUKO ESTERASE 3+ (Negative); NITRITE Negative (Negative); PH 5.5 (4.5-8.0); SPECIFIC GRAVITY 1.015 (1.001-1.030); UROBILINOGEN 1.0 E.U./dl (0.0-1.0)
[2025-07-15 14:15] LABS: BACTERIA 1+
[2025-07-15 14:44] LABS: BASO # 0.0 10*3/uL (0.0-0.1); BASO % 0.4 % (0.0-1.0); EOS # 0.1 10*3/uL (0.0-0.4); EOS % 1.3 % (1.0-4.0); MEAN CELL VOLUME 89.8 fl (81.0-99.0); MEAN CORPUSCULAR HGB 30.2 pg (27.0-31.0); MEAN PLATELET VOLUME 9.8 fl (9.6-12.3); MONO # 0.4 10*3/uL (0.1-1.0); MONO % 4.9 % (3.0-9.0); NEUT # 6.0 10*3/uL (2.3-7.9); NEUT % 77.2 % (47.0-73.0); NUCLEATED RED BLOOD CELL 0.0 % (0.0-0.0); NUCLEATED RED BLOOD CELL 0.0 10*3/uL (0.0-0.0); PLATELET COUNT AUTOMATED 170 10*3/uL (130-400); RED CELL DISTRI WIDTH 13.4 % (0-14.5)
[2025-07-15 15:04] LABS: BUN 12.0 mg/dl (9-23)
[2025-07-15] MEDS ORDERED: CEPHALEXIN500 M1 PO (15:27)
[2025-07-15] MEDS ORDERED: CEPHALEXIN 500 MG CAP PO ONE (15:30)
== END 2025-07-15 18:32 | disposition home or self-care (01) ==
LOC: ED 12:31
PROVIDERS: Nurse Practitioner Family
DX: N39.0 Urinary tract infection, site not specified (principal); I12.9 Hypertensive chronic kidney disease with stage 1 through stage 4 chronic kidney disease, or unspecified chronic kidney disease; N18.30 Chronic kidney disease, stage 3 unspecified; K21.9 Gastro-esophageal reflux disease without esophagitis; E78.5 Hyperlipidemia, unspecified; Z88.0 Allergy status to penicillin; Z88.2 Allergy status to sulfonamides; Z88.8 Allergy status to other drugs, medicaments and biological substances; Z87.891 Personal history of nicotine dependence; Z98.890 Other specified postprocedural states